=== PATIENT | male | born 1990 | race Caucasian/White ===

== ENCOUNTER 2024-02-23 14:52 | Emergency (ER) | payer MEDICAID, SELFPAY ==
[2024-02-23 14:53] VITALS: BMI 17.1
[2024-02-23 15:16] VITALS: BP 129/79; PULSE 77; RESP 16; TEMP 37.2; O2SAT 98
--- NOTE | 2024-02-23 15:19 | XR_ITS ---
Examination: Hand, left 3 views Technique: Hand AP, oblique, lateral 3 views Date and time of exam: February 23, 2024 1523 hrs. Indications: Injury to the hand today, hand pain Findings: Acute fracture mid to distal fourth metacarpal, 3 mm offset at the fracture site with mild angulation Digits carpal bones appear intact Impression: Acute displaced fourth metacarpal fracture
--- NOTE | 2024-02-23 15:33 | EDNOTE_ITS ---
<Statement entered by Merly Cotrez MD - 02/23/24 17:52> As co-signing physician, I was present and available for consult prn. I concur with the plan and care as documented by the midlevel provider. Upper Extremity Injury RME/HPI General Chief Complaint: Hand/Wrist Problems Stated Complaint: INJURY TO LEFT HAND LAST NIGHT Time Seen by Provider: 02/23/24 15:13 Arrival date/time: 02/23/24 14:52 33-year-old male presents the emergency department complaints of left hand injury last night patient reports no other injuries Limitations: no limitations Related Data Home Medications ?Medication ?Instructions ?Recorded ?Confirmed gabapentin 300 mg capsule 300 mg PO HS 08/27/23 10/05/23 Previous Rx's ?Medication ?Instructions ?Recorded acetaminophen 500 mg tablet 1,000 mg (2 x 500 mg) PO Q6H PRN 08/30/23 (Acetaminophen Extra Strength) pain #90 tabs aspirin 81 mg tablet,delayed 81 mg PO BID #60 tabs 08/30/23 release doxycycline hyclate 100 mg tablet 100 mg PO BID #14 tabs 08/30/23 gabapentin 300 mg capsule 300 mg PO .qhs #30 caps 08/30/23 oxycodone 5 mg tablet 5 mg PO Q6H PRN pain #28 tabs 08/30/23 sennosides 8.6 mg-docusate sodium 1 tab-cap PO QDAY #30 tabs 08/30/23 50 mg tablet (Senna-S) tramadol 50 mg tablet 50 mg PO Q6H PRN pain #28 tabs 09/14/23 tramadol 50 mg tablet 50 mg PO Q8H PRN pain #28 tabs 09/14/23 acetaminophen 500 mg tablet 1,000 mg (2 x 500 mg) PO Q6H PRN 09/27/23 (Acetaminophen Extra Strength) pain #90 tabs acetaminophen 500 mg tablet 1,000 mg (2 x 500 mg) PO Q6H PRN 10/22/23 (Acetaminophen Extra Strength) pain #90 tabs tramadol 50 mg tablet 50 mg PO Q6H PRN pain #28 tabs 10/22/23 hydrocodone 5 mg-acetaminophen 325 1 tab PO BID PRN pain #10 tabs 02/23/24 mg tablet ibuprofen 600 mg tablet 600 mg PO Q6H #30 tabs 02/23/24 Allergies Allergy/AdvReac Type Severity Reaction Status Date / Time No Known Allergies Allergy Verified 02/23/24 14:54 Review of Systems Review of Systems Systems Reviewed: All systems reviewed, normal except as documented Constitutional Constitutional: Reports system reviewed and no additional complaints, except as documented, Denies fever(s) and Denies headache(s) Eyes Eyes: Reports system reviewed and no additional complaints, except as documented and Denies blurry vision ENT Ears, Nose, Mouth, and Throat: Reports system reviewed and no additional complaints, except as documented, Denies headache(s), Denies nasal congestion and Denies nasal discharge Cardiovascular Cardiovascular: Reports system reviewed and no additional complaints, except as documented, Denies chest pain and Denies dyspnea Respiratory Respiratory: Reports system reviewed and no additional complaints, except as documented, Denies chest congestion, Denies cough and Denies dyspnea Gastrointestinal Gastrointestinal: Reports system reviewed and no additional complaints, except as documented and Denies abdominal pain Musculoskeletal Musculoskeletal: Reports system reviewed and no additional complaints, except as documented, Reports arthralgias, Denies numbness, Reports stiffness and Denies tingling Integumentary/Breasts Skin/Breast: Reports system reviewed and no additional complaints, except as documented and Denies rash Neurologic Neurologic: Reports system reviewed and no additional complaints, except as documented, Reports as per HPI, Denies headache(s), Denies numbness and Denies tingling Past Medical History Past Medical History NEUROLOGIC: Negative Neurological Disorders CARDIAC: Negative Cardiac Disorders ED Exam General Limitations: Present no limitations General appearance: Present alert and in no apparent distress Head Head exam: Present atraumatic Eye Eye exam: Present normal appearance, PERRL and EOMI ENT ENT exam: Present normal exam, normal oropharynx and mucous membranes moist Neck Neck exam: Present normal inspection, full ROM and trachea midline Chest Chest inspection: Present normal inspection and symmetric chest wall rise Respiratory Respiratory exam: Present normal lung sounds bilaterally Cardiovascular Cardiovascular exam: Present regular rate, normal rhythm and normal heart sounds Abdominal Exam Abdominal exam: Present soft and normal bowel sounds Extremities Exam Extremities exam: Present full ROM and normal capillary refill; Absent joint swelling Back Exam Back exam: Present normal inspection and full ROM Neurological Exam Neurological exam: Present alert, oriented X3 and CN II-XII intact Psychiatric Psychiatric exam: Present normal affect and normal mood Skin Skin exam: Present warm, dry, intact and normal color Course Quality Measures none Orders Category Date Time Status Splint / Immobilizer STAT Care 02/23/24 15:48 Active XR hand comp LT min 3V Stat Exams 02/23/24 15:19 Completed HYDROcodone*/APAP 5/325 [[place] 5/325] Med 02/23/24 15:48 Discontinued 1 tab PO X1 ONE Vital Signs Vital signs: Vital Signs Temperature 99 F 02/23/24 15:16 Pulse Rate 77 02/23/24 15:16 Respiratory Rate 16 02/23/24 15:16 Blood Pressure 129/79 02/23/24 15:16 Pulse Oximetry (%) 98 02/23/24 15:16 Oxygen Delivery Method Room Air 02/23/24 15:16 O2 saturation 98% on room air within normal limits Procedures -ED Splint Fabrication: Clinician Made Type: Volar Reason for Splint: Optimal Positioning and Pain Management Site condition: Pain Circulation Distal to Splint: Yes Movement Distal to Splint: Yes Senation Distal to Splint: Yes Tolerance: Tolerates Well Extremity Injury MDM Narrative MDM Narrative:: 33-year-old male presents the emergency department complaints of left hand injury last night patient reports no other injuries On exam patient has tenderness of left hand mild swelling dorsal aspect of the left hand X-ray of the left hand obtained patient has fracture left hand fourth metacarpal Patient placed in a volar splint patient given [place] for pain Patient instructed to follow-up with primary care doctor and or get a referral to patient access specialist patient states understanding Patient data External records reviewed:: [facility] previous records Clinical information provided by:: patient Social determinants that could affect healthcare access:: none Patient has the following chronic illnesses:: See history How is presenting disease/condition affected by chronic disease/condition?: uneffected by Evaluation data The following diagnostics were reviewed and interpreted by me:: radiology exam(s) Lab and/or radiology exams considered but not ordered:: Radiology obtain Interpretation Summary: Reviewed by me Medications / Prescriptions Medications or Prescriptions considered but not ordered:: Given Medication administrations:: Medication Administration History Discontinued Medications Hydrocodone Bitart/Acetaminophen (Hydrocodone/Apap 5/325 Tablet) 1 tab PO X1 ONE Stop: 02/23/24 15:49 Last Admin: 02/23/24 16:00 Dose: 1 tab Documented By: Given Consultations Consultation(s) initiated? (list below): No Diagnosis Upper Extremity Injury Differential Diagnosis: finger sprain, dislocation of finger, fracture of hand and other Most likely diagnosis given after review of the tests above:: Fracture of hand Admission Indicated Admission indicated?: not indicated Admission Request Was there a request for admission?: No Disposition Plan Disposition Plan: Discharge Discharge Attestation Discharge Attestation: The patient and all family members were given an opportunity to ask questions and understood the discharge instructions. Discharge instructions specifically effects, indications for sooner follow up or return to the emergency department, and the expected course of current diagnosis. Patient condition: Stable Discharge Plan Plan Patient Disposition: HOME (Self Care) Disposition Comment: Stable Prescriptions/Referrals Prescriptions/Med Rec: New hydrocodone-acetaminophen 5-325 mg tablet 1 tab PO BID MDD 10 PRN (Reason: pain) Qty: 10 0RF ibuprofen 600 mg tablet 600 mg PO Q6H Qty: 30 0RF No Action tramadol 50 mg tablet 50 mg PO Q6H PRN (Reason: pain) Qty: 28 0RF acetaminophen [Acetaminophen Extra Strength] 500 mg tablet 1,000 mg PO Q6H MDD 1000mg PRN (Reason: pain) Qty: 90 0RF tramadol 50 mg tablet 50 mg PO Q6H PRN (Reason: pain) Qty: 28 0RF gabapentin 300 mg capsule 300 mg PO HS Patient Comments: TAKE 1 CAPSULE BY MOUTH EVERY DAY AT BEDTIME sennosides-docusate sodium [Senna-S] 8.6-50 mg tablet 1 tab-cap PO QDAY Qty: 30 0RF aspirin 81 mg tablet,delayed release (DR/EC) 81 mg PO BID Qty: 60 0RF acetaminophen [Acetaminophen Extra Strength] 500 mg tablet 1,000 mg PO Q6H MDD 1000mg PRN (Reason: pain) Qty: 90 0RF gabapentin 300 mg capsule 300 mg PO .qhs Qty: 30 0RF doxycycline hyclate 100 mg tablet 100 mg PO BID Qty: 14 0RF oxycodone 5 mg tablet 5 mg PO Q6H MDD 40 PRN (Reason: pain) Qty: 28 0RF tramadol 50 mg tablet 50 mg PO Q8H PRN (Reason: pain) Qty: 28 0RF acetaminophen [Acetaminophen Extra Strength] 500 mg tablet 1,000 mg PO Q6H MDD 1000mg PRN (Reason: pain) Qty: 90 0RF Referrals: No Primary/Family,Physician [Primary Care Provider] - In 1 week Problem List Clinical Impression: Fracture of left hand Patient/Caregiver Discharge Instructions Education Materials: ED Fracture, Upper Extremity Additional Instructions: Please see your primary care doctor and or get a referral to orthopedics for worsening symptoms or concerns return to the ER immediately Print Language: Maori Stand Alone Forms: Linda Award Info., Work/School Release, Patient Portal Info Letter PA/ADOBE BLOCK MAKER Supervising Physician PA/ADOBE BLOCK MAKER Supervising Physician: Dr. CORTEZ
[2024-02-23] MEDS: HYDROcodone/APAP 5/325 TABLET 1 TAB PO (16:00)
== END 2024-02-23 16:05 | disposition home or self-care (01) ==
PROVIDERS: Emergency Provider Emergency Medicine
DX: S62.305A Unspecified fracture of fourth metacarpal bone, left hand, initial encounter for closed fracture (principal); X58.XXXA Exposure to other specified factors, initial encounter
CPT/HCPCS: 29125; 73130; 99283; A9270

== ENCOUNTER → 2024-03-07 | Outpatient (CLI) | payer MEDICAID, SELFPAY ==
--- NOTE | 2024-03-07 16:21 | XR_ITS ---
Examination: Wrist, left 3 views Technique: Wrist AP, oblique, lateral 3 views Date and time of exam: March 07, 2024 1633 hours INDICATIONS: Acute fracture fourth metacarpal, comminuted February 23, 2024 FINDINGS: Stable comminuted fracture fourth metacarpal No significant bony callus IMPRESSION: Stable alignment comminuted fracture fourth metacarpal
--- NOTE | 2024-03-07 16:21 | XR_ITS ---
Examination: Hand, left 3 views Technique: Hand AP, oblique, lateral 3 views Date and time of exam: March 07, 2024 1633 hours INDICATIONS: Acute fracture fourth metacarpal February 23, 2024 FINDINGS: Subacute fracture fourth metacarpal shaft again noted 3 mm offset at the fracture site No significant bony callus IMPRESSION: Stable alignment fracture fourth metacarpal with no significant bony callus at this time
== END | disposition home or self-care (01) ==
DX: S62.305A Unspecified fracture of fourth metacarpal bone, left hand, initial encounter for closed fracture (principal); X58.XXXA Exposure to other specified factors, initial encounter
CPT/HCPCS: 73110; 73130

== ENCOUNTER 2024-12-20 04:07 | Emergency (ER) | payer MEDICAID, SELFPAY ==
[2024-12-20 04:20] VITALS: BP 115/75; PULSE 80; RESP 17; TEMP 36.7; O2SAT 96
--- NOTE | 2024-12-20 04:34 | EDRME_ITS ---
Rapid Medical Screening Exam E Arrival date/time: 12/20/24 04:07 34M with history of DM presents to ED with 5 days of worsening N/V, some non- bloody diarrhea, generalized fatigue/weakness, and brain fog. Patient denies alcohol/drug use and known psych disorders. Chief Complaint: General Adult/Misc Complain Vital signs: Vital Signs Temperature 98.0 F 12/20/24 04:20 Pulse Rate 80 12/20/24 04:20 Respiratory Rate 17 12/20/24 04:20 Blood Pressure 115/75 12/20/24 04:20 Pulse Oximetry (%) 96 12/20/24 04:20 Oxygen Delivery Method Room Air 12/20/24 04:20 Exam: Tired-appearing. Speech normal. Clinical Impression: DKA vs psych vs gastroenteritis vs intoxication vs AMS vs electrolyte abnormality vs rhabdo vs PRISCILLA
[2024-12-20] MEDS: ONDANSETRON ODT 4 MG TABRAP PO (04:40)
[2024-12-20 05:26] LABS: Base Excess, Venous 3 (-3-3); O2 Saturation, Venous 83 % (96-97); PCO2, Venous 41 mmHg (36-56); PO2, Venous 45 mmHg (15-58); pH, Venous 7.44 (7.33-7.66)
[2024-12-20 05:44] LABS: Beta Hydroxybutyrate 0.3 mmol/L (<0.6)
[2024-12-20 05:49] LABS: Basophils # (Auto) 0.0 Thou/mm3 (0.0-0.2); Basophils % (Auto) 0 % (0-2.5); Eosinophils # (Auto) 0.1 Thou/mm3 (0.0-0.5); Eosinophils % (Auto) 1 % (0-10); Hematocrit 45.0 % (41.0-53.0); Hemoglobin 15.6 g/dL (13.5-16.0); Immature Granulocytes Auto 0.05 Thou/mm3 (0.00-0.00); Lymphocytes # (Auto) 3.3 Thou/mm3 (1.0-4.8); Lymphocytes % (Auto) 40 % (10-50); Mean Corpuscular HGB Conc 34.7 g/dl (31.0-37.0); Mean Corpuscular Hemoglobin 30.2 pg (25.0-35.0); Mean Corpuscular Volume 87 fL (80-100); Monocytes # (Auto) 0.5 Thou/mm3 (0.0-0.8); Monocytes % (Auto) 6 % (0-12); Neutrophils # (Auto) 4.3 Thou/mm3 (1.8-7.7); Neutrophils % (Auto) 52 % (37-80); Nucleated Red Blood Cell # 0.00 Thou/mm3 (0.00-0.00); Nucleated Red Blood Cell % 0 /100 WBC (0); Platelet Count 182 Thou/mm3 (140-440); RDW Standard Deviation 39.7 fL (35.1-43.9); Red Blood Count 5.16 Miln/mm3 (4.50-5.90); White Blood Count 8.3 Thou/mm3 (3.8-10.6)
[2024-12-20 05:52] LABS: Collection Type, Urine Clean Catch
[2024-12-20 06:00] LABS: Ammonia < 10 uMol/L (11-32)
--- NOTE | 2024-12-20 06:01 | PC.NURSE ---
SEEN LEAVING ER GOT IN TO A CAR.
[2024-12-20 06:02] LABS: Bilirubin,Urine Negative (Negative); Blood,Urine Trace (Negative); Clarity,Urine Clear (Clear/Hazy); Color,Urine Lt-Yellow (Lt Yel-Yel); Culture Indicated,Urine Not Indicated; Glucose, Urine 4+ (Negative); Hyaline Casts,Urine < 1 /hpf (0-1); Ketones,Urine 1+ (Negative); Leukocyte Esterase,Urine Negative (Negative); Nitrite,Urine Negative (Negative); PH,Urine 6.0 (5.0-7.0); Protein,Urine 1+ (Neg - Trace); RBC,Urine 2 /hpf (0-3); Specific Gravity,Urine 1.028 (1.001-1.035); Squamous Epithelial Cell,Urine 1 /hpf (0-5); Urobilinogen,Urine Negative mg/dL (0.0-1.0); WBC,Urine 8 /hpf (0-5)
[2024-12-20 06:12] LABS: Amphetamine/Methamp Scrn,U Negative (Negative); Barbiturate Screen,Urine Negative (Negative); Benzodiazepines Screen,Urine Negative (Negative); Benzoylecgonine Screen, Ur Negative (Negative); Fentanyl Screen,Urine Negative (Negative); Opiate Screen,Urine Negative (Negative); THC Screen,Urine Negative (Negative)
[2024-12-20 06:33] LABS: Alanine Aminotransferase 61 U/L (10-49); Albumin, Serum 4.8 gm/dL (3.5-5.0); Albumin/Globulin Ratio 4.0 (1.2-2.2); Alcohol, Blood Medical 272.4 mg/dL (0-10.0); Alkaline Phosphatase 81 U/L (46-116); Anion Gap 18 (7-16); Aspartate Amino Transferase 92 U/L (0-34); BUN/Creatinine Ratio 27 Ratio (12-20); Bilirubin,Total 0.6 mg/dL (0.3-1.2); Blood Urea Nitrogen 16 mg/dL (9-23); Calcium 8.8 mg/dL (8.3-10.6); Calcium (Corrected) 8.8 mg/dL (8.5-10.1); Carbon Dioxide 21.4 mMol/L (20.0-31.0); Chloride 103 mMol/L (98-107); Creatine Kinase 171 U/L (34-171); Creatinine (Component) 0.6 mg/dL (0.6-1.3); Globulin 1.2 gm/dL (2.3-3.5); Glucose 211 mg/dL (74-106); Osmolality,Calculated 290 (275-295); Potassium 4.6 mMol/L (3.4-5.1); Sodium 142 mMol/L (136-145); Total Protein 6.0 gm/dL (5.7-8.2); eGFR > 60 See Note
== END 2024-12-20 06:20 | disposition left against medical advice (07) ==
LOC: SERX 06:11
PROVIDERS: Physician Assistant; Emergency Provider Emergency Medicine
DX: Z53.21 Procedure and treatment not carried out due to patient leaving prior to being seen by health care provider (principal)
CPT/HCPCS: 36415; 80053; 80307; 80320; 81001; 82010; 82140; 82550; 82803; 85025; 99282; Q0162; G0480

== ENCOUNTER 2024-12-26 03:55 | Inpatient (IN) | payer MEDICAID, SELFPAY ==
[2024-12-26] VITALS (56 sets, daily range): BP systolic 99–120; BP diastolic 56–83; PULSE 68–93; RESP 15–34; TEMP 36.8–37.1; O2SAT 95–100; BMI 15.4
--- NOTE | 2024-12-26 03:57 | PD.EDALCOH ---
ED Alcohol RME/HPI General Chief Complaint: Weakness Stated Complaint: WEAKNESS Time Seen by Provider: 12/26/24 04:16 Arrival date/time: 12/26/24 03:55 RME / HPI Amount of alcohol consumed: See [facility] for Dr. Martinez's HPI Documentation. Related Data Home Medications ?Medication ?Instructions ?Recorded ?Confirmed gabapentin 300 mg capsule 300 mg PO HS 08/27/23 10/05/23 Previous Rx's ?Medication ?Instructions ?Recorded acetaminophen 500 mg tablet 1,000 mg (2 x 500 mg) PO Q6H PRN 08/30/23 (Acetaminophen Extra Strength) pain #90 tabs aspirin 81 mg tablet,delayed 81 mg PO BID #60 tabs 08/30/23 release doxycycline hyclate 100 mg tablet 100 mg PO BID #14 tabs 08/30/23 gabapentin 300 mg capsule 300 mg PO .qhs #30 caps 08/30/23 oxycodone 5 mg tablet 5 mg PO Q6H PRN pain #28 tabs 08/30/23 sennosides 8.6 mg-docusate sodium 1 tab-cap PO QDAY #30 tabs 08/30/23 50 mg tablet (Senna-S) tramadol 50 mg tablet 50 mg PO Q6H PRN pain #28 tabs 09/14/23 tramadol 50 mg tablet 50 mg PO Q8H PRN pain #28 tabs 09/14/23 acetaminophen 500 mg tablet 1,000 mg (2 x 500 mg) PO Q6H PRN 09/27/23 (Acetaminophen Extra Strength) pain #90 tabs acetaminophen 500 mg tablet 1,000 mg (2 x 500 mg) PO Q6H PRN 10/22/23 (Acetaminophen Extra Strength) pain #90 tabs tramadol 50 mg tablet 50 mg PO Q6H PRN pain #28 tabs 10/22/23 hydrocodone 5 mg-acetaminophen 325 1 tab PO BID PRN pain #10 tabs 02/23/24 mg tablet ibuprofen 600 mg tablet 600 mg PO Q6H #30 tabs 02/23/24 Allergies Allergy/AdvReac Type Severity Reaction Status Date / Time No Known Allergies Allergy Verified 02/23/24 14:54 Review of Systems Review of Systems Systems Reviewed: All systems reviewed, normal except as documented Past Medical History Past Medical History MUSCULOSKELETAL: Positive Musculoskeletal Disorders (necrosis hips) ENDOCRINE: Positive Endocrine Disorders and Diabetes Mellitus Type 2 (diet control) OTHER HISTORY: Positive Hospitalization (DM) Social History SMOKING STATUS: Current every day smoker ED Exam Narrative Physical exam: See MDM for Dr. Martinez's Physical Exam Documentation. Course Quality Measures none Orders Category Date Time Status EKG (ED ONLY) *Do not use* NOW Care 12/26/24 04:33 Active Glucose [Bedside Blood Glucose] NOW Care 12/26/24 04:22 Active Saline [Insert IV] NOW Care 12/26/24 04:20 Active Straight [In and Out Catheter] X1 Care 12/26/24 04:[address] abdomen pelvis wo con Stat Exams 12/26/24 04:[address] head/brain wo con Stat Exams 12/26/24 04:38 Ordered EKG (ED Only) Stat Exams 12/26/24 04:33 Ordered US gall bladder Stat Exams 12/26/24 04:34 Ordered XR chest 1V portable Stat Exams 12/26/24 04:33 Ordered Acetaminophen Stat Lab 12/26/24 04:34 Ordered Alcohol, Blood Medical Stat Lab 12/26/24 04:34 Ordered Ammonia Stat Lab 12/26/24 04:34 Ordered Amylase Stat Lab 12/26/24 04:34 Ordered BNP [B-Type Natriuretic Peptide] Stat Lab 12/26/24 04:34 Ordered Beta Hydroxybutyrate Stat Lab 12/26/24 04:34 Ordered Bilirubin,Direct Stat Lab 12/26/24 04:34 Ordered CBC Stat Lab 12/26/24 04:34 Ordered CK [Creatine Kinase] Stat Lab 12/26/24 04:34 Ordered CMP [Comprehensive Metabolic Panel] Stat Lab 12/26/24 04:34 Ordered Drug Screen,Urine Stat Lab 12/26/24 04:34 Ordered Hemoglobin A1C [Glycohemoglobin w (eAG)] Stat Lab 12/26/24 04:34 Ordered Lactate (Lactic Acid) Stat Lab 12/26/24 04:35 Ordered Lipase Stat Lab 12/26/24 04:34 Ordered Magnesium Stat Lab 12/26/24 04:34 Ordered PT [Prothrombin Time with INR] Stat Lab 12/26/24 04:35 Ordered PTT [Partial Thromboplastin Time] Stat Lab 12/26/24 04:35 Ordered TSH [Thyroid Stimulating Hormone] Stat Lab 12/26/24 04:34 Ordered Troponin I Stat Lab 12/26/24 04:34 Ordered UA, C/S IF [Urinalysis, C/S if Indicated] Stat Lab 12/26/24 04:35 Ordered VBG [Venous Blood Gas] Stat Lab 12/26/24 04:35 Ordered Famotidine Inj [Pepcid Inj] Med 12/26/24 04:21 Discontinued 20 mg IVP X1 ONE LORazepam [Ativan Inj] Med 12/26/24 04:21 Discontinued 2 mg IVP X1 ONE Ondansetron Inj [Zofran Inj] Med 12/26/24 04:21 Discontinued 4 mg IVP X1 ONE Pantoprazole Inj [Protonix Inj] Med 12/26/24 04:21 Discontinued 40 mg IVP X1 ONE Ringers Lactated 1000 ml [Lactated Ringers] 1,000 ml Med 12/26/24 04:21 Active IV 1,000 mls/hr Thiamine Inj [Vitamin B-1 Inj] Med 12/26/24 04:21 Discontinued 100 mg IVP X1 ONE Vital Signs Vital signs: Vital Signs Temperature 98.5 F 12/26/24 04:05 Pulse Rate 86 12/26/24 04:05 Respiratory Rate 18 12/26/24 04:05 Blood Pressure 108/74 12/26/24 04:05 Pulse Oximetry (%) 98 12/26/24 04:05 Oxygen Delivery Method Room Air 12/26/24 04:05 Discharge Plan Prescriptions/Referrals Prescriptions/Med Rec: No Action tramadol 50 mg tablet 50 mg PO Q6H PRN (Reason: pain) Qty: 28 0RF acetaminophen [Acetaminophen Extra Strength] 500 mg tablet 1,000 mg PO Q6H MDD 1000mg PRN (Reason: pain) Qty: 90 0RF tramadol 50 mg tablet 50 mg PO Q6H PRN (Reason: pain) Qty: 28 0RF hydrocodone-acetaminophen 5-325 mg tablet 1 tab PO BID MDD 10 PRN (Reason: pain) Qty: 10 0RF ibuprofen 600 mg tablet 600 mg PO Q6H Qty: 30 0RF gabapentin 300 mg capsule 300 mg PO HS Patient Comments: TAKE 1 CAPSULE BY MOUTH EVERY DAY AT BEDTIME sennosides-docusate sodium [Senna-S] 8.6-50 mg tablet 1 tab-cap PO QDAY Qty: 30 0RF aspirin 81 mg tablet,delayed release (DR/EC) 81 mg PO BID Qty: 60 0RF acetaminophen [Acetaminophen Extra Strength] 500 mg tablet 1,000 mg PO Q6H MDD 1000mg PRN (Reason: pain) Qty: 90 0RF gabapentin 300 mg capsule 300 mg PO .qhs Qty: 30 0RF doxycycline hyclate 100 mg tablet 100 mg PO BID Qty: 14 0RF oxycodone 5 mg tablet 5 mg PO Q6H MDD 40 PRN (Reason: pain) Qty: 28 0RF tramadol 50 mg tablet 50 mg PO Q8H PRN (Reason: pain) Qty: 28 0RF acetaminophen [Acetaminophen Extra Strength] 500 mg tablet 1,000 mg PO Q6H MDD 1000mg PRN (Reason: pain) Qty: 90 0RF Problem List Clinical Impression: Alcohol abuse, Diabetes Patient/Caregiver Discharge Instructions Print Language: Greenlandic Alcohol MDM Narrative MDM Narrative: This section includes all my notes and documentations, including HPI, PE, and ED course. Sandro Martinez MD HPI: 34 y/o male here by EMS with multiple concerns. Has type II DM. Has history of severe alcohol abuse. He reports quitting for about 3 years. Until a couple weeks ago when he started drinking heavily daily. Concerned about severe alcohol withdrawal symptoms, including seizures, based on past history. Reports severe shaking. No hallucinations. He reports severe weakness, not even being able to walk to the bathroom on his own. Reports severe nausea and upper abdominal pain. No other complaints. ROS: All negative except as documented in HPI. Physical Exam: General: Alert and oriented. Appears intoxicated. Eyes: Conjunctivae and lids clear. EOMI. PERRL. ENT: No nasal congestion. Neck: Supple. No carotid bruit. No JVD. Heart: RRR. Lungs: No respiratory distress. Good air movement. No rhonchi, wheezing, rales. Chest: No tenderness. Abdomen: Soft with epigastric tenderness. Normal bowel sounds. No distension. No rebound or guarding. Back: No CVA tenderness. Legs: No clubbing, cyanosis, edema. Skin: Warm and dry. Neuro: Alert and oriented X 3. Cranial Nerves II-XII grossly intact. No peripheral motor deficits. Musculoskeletal: All major joints and bones are not tender with no limited ROM. I reviewed EMS notes. I ordered IVF, Zofran 4 mg IV, Ativan 2 mg IV, Famotidine 20 mg IV, Protonix 40 mg IV, and diagnostic tests. At 6 AM on 01/16, the care of the patient which as per Dr. GEORGES. Sandro Martinez MD Patient data External records reviewed:: [facility] previous records and EMS form Clinical information provided by:: patient and EMS Social determinants that could affect healthcare access:: alcohol use Patient has the following chronic illnesses:: Alcohol abuse How is presenting disease/condition affected by chronic disease/condition?: exacerbated by Evaluation data The following diagnostics were reviewed and interpreted by me:: lab results and radiology exam(s) Lab and/or radiology exams considered but not ordered:: None Interpretation Summary: Complete diagnostic tests are pending. Medications / Prescriptions Medications or Prescriptions considered but not ordered:: None Medication administrations:: Medication Administration History Lactated Ringer's (Lactated Ringers) 1,000 mls @ 1,000 mls/hr IV .Q1H ONE Stop: 12/26/24 05:20 Discontinued Medications Famotidine (Famotidine Inj 10 Mg/Ml Vial 2 Ml) 20 mg IVP X1 ONE Stop: 12/26/24 04:22 Lorazepam (Lorazepam 2 Mg/Ml Vial) 2 mg IVP X1 ONE Stop: 12/26/24 04:22 Ondansetron HCl (Ondansetron Inj 2 Mg/Ml Inj 2 Ml) 4 mg IVP X1 ONE; Protocol Stop: 12/26/24 04:22 Pantoprazole Sodium (Pantoprazole Inj 40 Mg Vial) 40 mg IVP X1 ONE Stop: 12/26/24 04:22 Thiamine HCl (Thiamine Inj 100 Mg/Ml Vial 2 Ml) 100 mg IVP X1 ONE Stop: 12/26/24 04:22 I ordered IVF, Zofran 4 mg IV, Ativan 2 mg IV, Famotidine 20 mg IV, Protonix 40 mg IV, and diagnostic tests. Consultations Consultation(s) initiated? (list below): No Diagnosis Differential diagnosis alcohol: alcohol withdrawal delirium, hypomagnesemia, alcohol intoxication, alcohol ketoacidosis, alcohol withdrawal syndrome and alcohol withdrawal seizure Most likely diagnosis given after review of the tests above:: Complete diagnostic tests are pending. Admission Indicated Admission indicated?: not indicated Explain why admission is indicated or not indicated:: Complete diagnostic tests are pending. Admission Request Was there a request for admission?: No Disposition Plan Disposition Plan: other (specify) ( At 6 AM on 01/16, the care of the patient which as per Dr. GEORGES.)
--- NOTE | 2024-12-26 04:33 | XR_ITS ---
CLINICAL INDICATION: SOB TECHNIQUE: XR chest 1V portable Exam date and time: 12/26/2024, 4:43 a.m. COMPARISON: None. FINDINGS: The cardiomediastinal silhouette is within normal limits. No airspace opacities suggestive of pneumonia. No mass detected. No pleural effusion or pneumothorax. Convex right spinal curvature may be positional in etiology or due to scoliosis. Otherwise, no acute osseous abnormalities detected. IMPRESSION: No radiographic evidence for acute cardiopulmonary abnormality. - This report was generated utilizing speech recognition software. -
--- NOTE | 2024-12-26 04:33 | EKG_ITS ---
[facility] Test Date: 2024-12-26 Pat Name: SKYLER KYLE Department: Room: - Gender: Male Psychological Anthropologist: : 1990 Requested By: Sandro Tavarez Order Number: [id number] Reading MD: Sandro Tavarez Measurements Intervals Apex Rate: 84 P: 76 TX: 146 QRS: 72 QRSD: 86 T: 54 QT: 384 QTc: 454 Interpretive Statements SINUS RHYTHM Compared to ECG 06/29/2023 09:43:05 Sinus bradycardia no longer present Atrial abnormality no longer present /store/S0/[id number]
--- NOTE | 2024-12-26 04:34 | XR_ITS ---
Examination: Abdomen sonogram, Limited Date and time of exam: December 26, 2024, 0739 hours INDICATIONS: Right upper abdominal pain and weakness this week Technique: Real-time juan scale transabdominal sonographic images of the upper abdomen obtained. Findings: Normal gallbladder Normal common bile duct 0.3 cm Pancreatic head 1.8 cm Liver 13.9 cm fatty infiltration smooth contour no focal liver lesions Normal hepatopetal portal venous flow Patent IVC IMPRESSION: Negative study
--- NOTE | 2024-12-26 04:34 | XR_ITS ---
Examination: CT abdomen and pelvis without contrast. Coronal 3-D reconstructions. Sagittal 2-D reconstructions. Date and time of exam: December 26, 2024, 0508 hours INDICATIONS: Abdominal pain and weakness beginning 9 days ago CTDI: vol (mGy): 4.33 DLP: (mGycm): 238 Technique: Axial images of the abdomen have been obtained, 3 mm slice thickness Intravenous contrast material has not been administered. Low dose protocols were performed. One or more of the following dose reduction techniques were used; automated exposure control, adjustment of the mA and/or KV according to patient size, use of iterative reconstruction technique. Findings: Diffuse fatty infiltration throughout the liver with hepatomegaly 17 cm No liver or splenic lesion No definite gallstones No pancreatic mass or adrenal mass 2 mm left renal calculus 4 mm soft calcification anterior right kidney image 100 No hydronephrosis or ureteral calculi No bowel obstruction Detail in the pelvis is reduced secondary to the hip arthroplasties No bladder mass or bladder calculi No pericecal inflammatory change IMPRESSION: Hepatomegaly with diffuse fatty infiltration throughout the liver 2 mm nonobstructing left renal calculus 4 mm soft calcification anterior right kidney No hydronephrosis or ureteral calculi No CT findings of appendicitis or bowel obstruction
[2024-12-26] MEDS: ONDANSETRON INJ 2 MG/ML INJ 2 ML 4 MG IVP (04:37)
--- NOTE | 2024-12-26 04:38 | XR_ITS ---
Examination: CT brain head without contrast. 2-D sagittal coronal reconstructions Date and time of exam: December 26, 2024, 0508 hours INDICATIONS: Onset altered mental status beginning 3 days ago CTDI: vol (mGy): 46.2 DLP: (mGycm): 805 Technique: Multiple CT axial sections of the brain have been obtained, 5 mm slice thickness. Contrast has not been administered. 2-D sagittal, coronal reconstructions have been obtained Low dose protocols were performed. One or more of the following dose reduction techniques were used; automated exposure control, adjustment of the mA and/or KV according to patient size, use of iterative reconstruction technique. Findings: No significant ventricular enlargement. Intra-axial or extra-axial hemorrhage density is not seen. No mass effect or midline shift Basal cisterns are not remarkable. Fourth ventricle is midline. Cranial vault intact. Impression: Negative for acute hemorrhage, mass effect or midline shift Advise clinical correlation and follow-up accordingly
[2024-12-26] MEDS: FAMOTIDINE INJ 10 MG/ML VIAL 2 ML 20 MG IVP (04:39)
[2024-12-26] MEDS: THIAMINE INJ 100 MG/ML VIAL 2 ML IVP (04:42)
[2024-12-26] MEDS: LORazepam 2 MG/ML VIAL IVP ×2 (04:43→12:33)
[2024-12-26] MEDS: RINGERS LACTATED 1000 ML 1,000 ML IV (04:54)
[2024-12-26 05:15] LABS: Basophils # (Auto) 0.0 Thou/mm3 (0.0-0.2); Basophils % (Auto) 0 % (0-2.5); Eosinophils # (Auto) 0.1 Thou/mm3 (0.0-0.5); Eosinophils % (Auto) 1 % (0-10); Hematocrit 48.9 % (41.0-53.0); Hemoglobin 17.1 g/dL (13.5-16.0); Immature Granulocytes Auto 0.03 Thou/mm3 (0.00-0.00); Lymphocytes # (Auto) 2.2 Thou/mm3 (1.0-4.8); Lymphocytes % (Auto) 33 % (10-50); Mean Corpuscular HGB Conc 35.0 g/dl (31.0-37.0); Mean Corpuscular Hemoglobin 30.5 pg (25.0-35.0); Mean Corpuscular Volume 87 fL (80-100); Monocytes # (Auto) 0.3 Thou/mm3 (0.0-0.8); Monocytes % (Auto) 5 % (0-12); Neutrophils # (Auto) 4.1 Thou/mm3 (1.8-7.7); Neutrophils % (Auto) 61 % (37-80); Nucleated Red Blood Cell # 0.00 Thou/mm3 (0.00-0.00); Nucleated Red Blood Cell % 0 /100 WBC (0); Platelet Count 170 Thou/mm3 (140-440); RDW Standard Deviation 39.6 fL (35.1-43.9); Red Blood Count 5.60 Miln/mm3 (4.50-5.90); White Blood Count 6.7 Thou/mm3 (3.8-10.6)
[2024-12-26 05:36] LABS: Glucose Estimated Average 186 mg/dL (80-131); Hemoglobin A1C 8.1 % Hgb (4.8-6.0)
[2024-12-26 05:39] LABS: Base Excess, Venous 5 (-3-3); O2 Saturation, Venous 44 % (96-97); PCO2, Venous 41 mmHg (36-56); PO2, Venous 24 mmHg (15-58); pH, Venous 7.46 (7.33-7.66)
[2024-12-26 05:40] LABS: B-Type Natriuretic Peptide < 20 pg/mL (0-100)
[2024-12-26 05:49] LABS: Beta Hydroxybutyrate 0.4 mmol/L (<0.6)
--- NOTE | 2024-12-26 05:59 | PRELIM_ITS ---
CT scan of the head without intravenous contrast (axial sections with sagittal and coronal reformats). December 26, 2024 0507 hours Clinical History: AMS No prior study is available for comparison. Findings: No evidence of intracranial hemorrhage, mass effect or midline shift. The ventricles and CSF spaces are unremarkable. The calvarium is unremarkable. The mastoid air cells and the visualized paranasal sinuses are clear. Impression: No evidence of intracranial hemorrhage, mass effect or midline shift. If there are persistent clinical symptoms or additional clinical concerns, consider MRI. Report Electronically Signed By: Faraz Flores 12/26/2024 5:58:45 AM [EST]
[2024-12-26 06:00] LABS: INR 0.9 (0.9-1.3); Partial Thromboplastin Time 24.1 Seconds (22.0-36.0); Prothrombin Time 9.9 Seconds (9.0-12.2)
[2024-12-26 06:04] LABS: Lactate (Lactic Acid) 4.7 mMol/L (0.4-2.0)
[2024-12-26 06:14] LABS: Ammonia < 10 uMol/L (11-32)
[2024-12-26 06:14] LABS: Acetaminophen < 2.0 mcg/mL (10.0-20.0); Alanine Aminotransferase 354 U/L (10-49); Albumin, Serum 4.9 gm/dL (3.5-5.0); Albumin/Globulin Ratio 3.3 (1.2-2.2); Alcohol, Blood Medical 313.1 mg/dL (0-10.0); Alkaline Phosphatase 83 U/L (46-116); Amylase 37 U/L (30-118); Anion Gap 14 (7-16); Aspartate Amino Transferase 534 U/L (0-34); BUN/Creatinine Ratio 13 Ratio (12-20); Bilirubin,Direct 0.5 mg/dL (0.0-0.3); Bilirubin,Total 1.3 mg/dL (0.3-1.2); Blood Urea Nitrogen 8 mg/dL (9-23); Calcium 9.0 mg/dL (8.3-10.6); Calcium (Corrected) 9.0 mg/dL (8.5-10.1); Carbon Dioxide 28.0 mMol/L (20.0-31.0); Chloride 103 mMol/L (98-107); Creatine Kinase 207 U/L (34-171); Creatinine (Component) 0.6 mg/dL (0.6-1.3); Estimated Creatinine Clearance 133.6 mL/min (>60); Globulin 1.5 gm/dL (2.3-3.5); Glucose 147 mg/dL (74-106); Lipase 26 U/L (12-53); Magnesium 2.1 mg/dL (1.6-2.6); Osmolality,Calculated 290 (275-295); Potassium 3.9 mMol/L (3.4-5.1); Sodium 145 mMol/L (136-145); Thyroid Stimulating Hormone 0.85 uIU/mL (0.55-4.78); Total Protein 6.4 gm/dL (5.7-8.2); Troponin I < 0.020 ng/mL (0.0-0.045); eGFR > 60 See Note
--- NOTE | 2024-12-26 06:18 | PRELIM_ITS ---
CT scan of the abdomen and pelvis without intravenous contrast (axial sections with sagittal and coronal reformats) December 26, 2024 0508 hours Clinical History: Abdominal pain. No prior study is available for comparison. Findings: Right basilar calcified granuloma is seen. Fatty infiltration of the liver is noted. There is a nonobstructing calculus in the left interpolar calyx, measuring 2 mm. The gallbladder, pancreas, spleen, right kidney and adrenals are unremarkable on this noncontrast study. No evidence of bowel obstruction. The appendix is within normal limits (axial image [id number]). There is no mesenteric or retroperitoneal adenopathy. The urinary bladder is unremarkable. There is no free fluid or free air. Calcific densities are seen in the pelvis, likely representing phleboliths. Post bilateral hip replacement. Impression: No evidence of acute intra-abdominal or pelvic pathology. Nonobstructing calculus in the left interpolar calyx, measuring 2 mm. Fatty liver. Other findings as described above. Report Electronically Signed By: Faraz Flores 12/26/2024 6:17:15 AM [EST]
--- NOTE | 2024-12-26 08:20 | PC.NURSE ---
Pt. here from home to room 18, pt. states he's here because of his alcoholism, pt. states he also smokes cigarettes daily. Pt. states he wants to eat and denies any nausea or vomiting. No s/s of distress at this time.
--- NOTE | 2024-12-26 08:21 | PC.NURSE ---
Pt. states he is going to loose his car and his job at [employer] pt. states he is depressed, pt. states he went to rehab for a year and had stopped drinking alcohol for 4 years. Pt. states he lives with his dad who is a Meth head.
--- NOTE | 2024-12-26 08:26 | PC.NURSE ---
Informed Dr. Cortez that pt. would like to eat and needs a nicotine patch, Dr. Cortez states she will put in orders.
[2024-12-26] MEDS: SODIUM CHLORIDE 0.9% 1000 ML 1,000 ML 999 ML IV (08:35)
[2024-12-26 08:37] LABS: Reflex Lactate? Y
[2024-12-26] MEDS: NICOTINE PATCH 21 MG/24 HR PATCH.TD24 TOP (08:42)
--- NOTE | 2024-12-26 08:48 | PC.NURSE ---
Dr. Benavides talking with pt. bedside.
[2024-12-26 08:51] LABS: Collection Type, Urine Clean Catch
[2024-12-26 08:58] LABS: Bilirubin,Urine Negative (Negative); Blood,Urine 1+ (Negative); Clarity,Urine Clear (Clear/Hazy); Color,Urine Yellow (Lt Yel-Yel); Culture Indicated,Urine Not Indicated; Glucose, Urine 3+ (Negative); Ketones,Urine 2+ (Negative); Leukocyte Esterase,Urine Negative (Negative); Nitrite,Urine Negative (Negative); PH,Urine 6.5 (5.0-7.0); Protein,Urine 2+ (Neg - Trace); RBC,Urine 5 /hpf (0-3); Specific Gravity,Urine 1.025 (1.001-1.035); Squamous Epithelial Cell,Urine < 1 /hpf (0-5); Urobilinogen,Urine 3.0 mg/dL (0.0-1.0); WBC,Urine 1 /hpf (0-5)
[2024-12-26 09:04] LABS: Amphetamine/Methamp Scrn,U Negative (Negative); Barbiturate Screen,Urine Negative (Negative); Benzodiazepines Screen,Urine Negative (Negative); Benzoylecgonine Screen, Ur Negative (Negative); Fentanyl Screen,Urine Negative (Negative); Opiate Screen,Urine Negative (Negative); THC Screen,Urine Positive (Negative)
[2024-12-26 09:44] LABS: Lactic Acid, 3 HR 4.1 mMol/L (0.4-2.0)
--- NOTE | 2024-12-26 10:21 | EDNOTE_ITS ---
<Statement entered by Merly Cortez MD - 12/27/24 16:14> I, Merly Cortez MD, have reviewed the history, exam, and assessment of the patient. I have evaluated the patient independently and agree with the plan of care documented by [ ]. All diagnostic studies were reviewed and discussed. I confirm the diagnosis as documented by the Resident. I was present during the Medical Decision Making for this patient. The patient's plan of care was created between myself and the Resident and consistent with our discussion of the patient's case. ED Chest Pain RME/HPI General Chief Complaint: Weakness Stated Complaint: WEAKNESS Time Seen by Provider: 12/26/24 04:16 Arrival date/time: 12/26/24 03:55 RME / HPI RME / HPI narrative: Patient is a 34 year old male with a past medical history of diabetes mellitus type 2 non insulin dependent and alcohol use disorder who has a history of alcoholic seizures. Patient presented to the emergency room with chief complain of chest pain that originates at the sternal region, does not radiate, lasting hours, and has been bed bound for the past 9 days secondary to generalized weakness. Pain stated it is not produceable to palpation or with deep inspiration. Patient stated he drinks a 5th of clarisse every day. Last drink on Wednesday, December 25, 2024. Currently complaining of visual hallucinations. Patient would like to stop drinking. Patient has stopped all diabetic medication. Positive for naseua. Negative for emesis. Denied pyrexia or sick contacts. Denied falls. CIWA 7 CBC CMP troponin EKG Related Data Home Medications ?Medication ?Instructions ?Recorded ?Confirmed gabapentin 300 mg capsule 300 mg PO HS 08/27/23 Previous Rx's ?Medication ?Instructions ?Recorded acetaminophen 500 mg tablet 1,000 mg (2 x 500 mg) PO Q 6H PRN 08/30/23 (Acetaminophen Extra Strength) pain #90 tabs aspirin 81 mg tablet,delayed 81 mg PO BID #60 tabs 10/15 release doxycycline hyclate 100 mg tablet 100 mg PO BID #14 ta bs 08/30/23 gabapentin 300 mg capsule 300 mg PO .qhs #30 caps 10/15 oxycodone 5 mg tablet 5 mg PO Q6H PRN pain #28 tab s 08/30/23 sennosides 8.6 mg-docusate sodium 1 tab-cap PO QDAY #3 0 tabs 08/30/23 50 mg tablet (Senna-S) tramadol 50 mg tablet 50 mg PO Q6H PRN pain #28 ta bs 09/14/23 tramadol 50 mg tablet 50 mg PO Q8H PRN pain #28 ta bs 09/14/23 acetaminophen 500 mg tablet 1,000 mg (2 x 500 mg) PO Q 6H PRN 09/27/23 (Acetaminophen Extra Strength) pain #90 tabs acetaminophen 500 mg tablet 1,000 mg (2 x 500 mg) PO Q 6H PRN 10/22/23 (Acetaminophen Extra Strength) pain #90 tabs tramadol 50 mg tablet 50 mg PO Q6H PRN pain #28 ta bs 10/22/23 hydrocodone 5 mg-acetaminophen 325 1 tab PO BID PRN pa in #10 tabs 02/23/24 mg tablet ibuprofen 600 mg tablet 600 mg PO Q6H #30 tabs 02/22 Allergies Allergy/AdvReac Type Severity Reaction Status Date / Time No Known Allergies Allergy Verified 02/23/24 14:54 Review of Systems Review of Systems Narrative Review of Systems: General appearance: NO weight change, NO fatigue, NO weakness, NO fever, NO chills, NO night sweats, No cough Skin: NO rash, NO itching, NO sores, NO moles HEENT: NO Trauma, NO nausea, NO vomiting, NO visual changes, NO blurry vision, NO double vision, NO tinnitus, NO vertigo, NO ear discharge, NO rhinorrhea, NO stuffiness, NO sneezing, NO allergy, NO epistaxis. NO Hoarseness, NO sore throat, NO swollen neck. Cardiac: YES Palpitations, Yes chest pain, NO dyspnea on exertion, NO orthopnea, NO paroxysmal nocturnal dyspnea, NO edema Respiratory: NO Shortness of Breath, NO Wheezing, NO Cough, NO Sputum, NO hemoptysis GI:NO appetite, NO nausea, NO vomiting, NO dysphagia, NO changes in bowel frequency, NO stool color, NO diarrhea, NO constipation, NO hemetemesis, NO hemorrhoids, NO melena, NO hematechezia, NO abdominal pain, NO jaundice Renal: NO frequency, NO hesitancy, NO urgency, NO hematuria, NO nocturia, NO i ncontinence MSK: NO muscle weakness, NO gout, NO arthritis, NO muscle stiffness Neuro: NO headaches, NO tremors, NO weakness, NO paralysis, NO seizures, NO loss of consciousness, NO numbness. Hem: NO anemia, NO easy bruising/bleeding, NO petechiae, NO purpura Endo: NO heat/cold intolerance, NO excessive sweating, NO polyuria, NO polydipsia, NO polyphagia, NO thyroid problems, Yes diabetes Pysch: NO mood, NO anxiety, NO depression ED Exam Narrative Physical exam: General Appearance: Alert & Oriented X3, well-nourished male who is lying in bed in mild distress HEENT: Skull symmetrical and atraumatic. Conjunctivae pale pink and moist. Pupils equal, round, reactive to light and accommodation (PERRL). External ear without lesion or discharge. Straight, nares patient, mucosa pink, no discharge. Cardio: Normal Rate and Rhythm with S1 and S2 heart sounds. No murmurs or extra heart sounds auscultated. No bruits on carotid auscultation. No peripheral edema or cyanosis. Lungs: Symmetric with good expansion. Chest and back non-tender. Breath sounds vesicular without crackles, wheezing or rhonchi Abdomen: Non-tender, Non-distended, Normal Reactive Bowel Sounds Neuro: Alert, cooperative, oriented to person, place, and time. Speech clear. CN grossly intact. Upper motor strength 5/5 and Lower motor strength 5/5. Sensation intact. Course Quality Measures none Orders Category Date Time Status Admit to Inpatient Status Routine Admission 12/26/24 11:55 Active Patient Condition Routine Admission 12/26/24 11:55 Ordered Activity as Tolerated Routine Care 12/26/24 11:55 Ordered Aspiration precautions ONCE Care 12/26/24 11:59 Active EKG (ED ONLY) *Do not use* NOW Care 12/26/24 04:33 Completed Glucose [Bedside Blood Glucose] NOW Care 12/26/24 04:22 Active Notify provider NEEDED Care 12/26/24 11:55 Active Nurse Swallow Screen X1 Care 12/26/24 11:59 Active Saline [Insert IV] NOW Care 12/26/24 04:20 Active Seizure precautions NEEDED Care 12/26/24 11:55 Active Straight [In and Out Catheter] X1 Care 12/26/24 04:[address] abdomen pelvis wo con Stat Exams 12/26/24 04:[address] head/brain wo con Stat Exams 12/26/24 04:38 Completed EKG (ED Only) Stat Exams 12/26/24 04:33 Draft US gall bladder Stat Exams 12/26/24 04:34 Completed XR chest 1V portable Stat Exams 12/26/24 04:33 Completed Acetaminophen Stat Lab 12/26/24 04:09 Completed Alcohol, Blood Medical Stat Lab 12/26/24 04:09 Completed Ammonia Stat Lab 12/26/24 05:35 Completed Amylase Stat Lab 12/26/24 04:09 Completed BNP [B-Type Natriuretic Peptide] Stat Lab 12/26/24 04:09 Completed Beta Hydroxybutyrate Stat Lab 12/26/24 04:09 Completed Bilirubin,Direct Stat Lab 12/26/24 04:09 Completed CBC AM DRAW Lab 12/27/24 05:00 Ordered CBC AM DRAW Lab 12/28/24 05:00 Ordered CBC AM DRAW Lab 12/29/24 05:00 Ordered CBC Stat Lab 12/26/24 04:09 Completed CK [Creatine Kinase] Stat Lab 12/26/24 04:09 Completed CMP [Comprehensive Metabolic Panel] Stat Lab 12/26/24 04:09 Completed Comprehensive Metabolic Panel AM DRAW Lab 12/27/24 05:00 Ordered Comprehensive Metabolic Panel AM DRAW Lab 12/28/24 05:00 Ordered Comprehensive Metabolic Panel AM DRAW Lab 12/29/24 05:00 Ordered Drug Screen,Urine Stat Lab 12/26/24 08:18 Completed Hemoglobin A1C [Glycohemoglobin w (eAG)] Stat Lab 12/26/24 04:09 Completed Lactate (Lactic Acid) Stat Lab 12/26/24 05:35 Completed Lactic Acid, 3 HR Stat Lab 12/26/24 09:15 Completed Lipase Stat Lab 12/26/24 04:09 Completed Lipid Panel AM DRAW Lab 12/27/24 05:00 Ordered Magnesium AM DRAW Lab 12/27/24 05:00 Ordered Magnesium AM DRAW Lab 12/28/24 05:00 Ordered Magnesium AM DRAW Lab 12/29/24 05:00 Ordered Magnesium Stat Lab 12/26/24 04:09 Completed PT [Prothrombin Time with INR] Stat Lab 12/26/24 04:09 Completed PTT [Partial Thromboplastin Time] Stat Lab 12/26/24 04:09 Completed Phosphorous AM DRAW Lab 12/27/24 05:00 Ordered Phosphorous AM DRAW Lab 12/28/24 05:00 Ordered Phosphorous AM DRAW Lab 12/29/24 05:00 Ordered TSH [Thyroid Stimulating Hormone] Stat Lab 12/26/24 04:09 Completed Troponin I Stat Lab 12/26/24 04:09 Completed UA, C/S IF [Urinalysis, C/S if Indicated] Stat Lab 12/26/24 08:18 Completed VBG [Venous Blood Gas] Stat Lab 12/26/24 05:35 Completed Acetaminophen Tab [Tylenol Tab] Med 12/26/24 11:55 Active 650 mg PO Q6H PRN Acetaminophen Tab [Tylenol Tab] Med 12/26/24 11:55 Active 650 mg PO Q6H PRN Aspirin Med 12/26/24 10:26 Discontinued 325 mg PO X1 ONE Famotidine Inj [Pepcid Inj] Med 12/26/24 04:21 Discontinued 20 mg IVP X1 ONE Folic Acid Med 12/26/24 21:00 Active 1 mg PO BID Folic Acid Med 12/26/24 10:28 Discontinued 1 mg PO X1 ONE Heparin Inj Med 12/26/24 14:00 Active 5,000 unit SC Q8HR LORazepam [Ativan Inj] Med 12/26/24 04:21 Discontinued 2 mg IVP X1 ONE LORazepam [Ativan Inj] Med 12/26/24 12:00 Discontinued 2 mg IVP X1 ONE Magnesium Sulfate 2 GM Ivpb [Magnesium Sulfate Ivpb] Med 12/26/24 10:26 Active 2 gm in 50 ml IV X1 Nicotine Patch [Nicoderm Patch] Med 12/26/24 08:26 Discontinued 21 mg TOP X1 ONE Ondansetron Inj [Zofran Inj] Med 12/26/24 11:55 Active 4 mg IVP Q6H PRN Ondansetron Inj [Zofran Inj] Med 12/26/24 04:21 Discontinued 4 mg IVP X1 ONE Pantoprazole Inj [Protonix Inj] Med 12/26/24 04:21 Discontinued 40 mg IVP X1 ONE Ringers Lactated 1000 ml [Lactated Ringers] 1,000 ml Med 12/26/24 04:21 Discontinued IV 1,000 mls/hr Sodium Chloride 0.9% 1000 ml [Ns] 1,000 ml Med 12/26/24 06:47 Discontinued IV 999 mls/hr Thiamine Inj [Vitamin B-1 Inj] Med 12/26/24 04:21 Discontinued 100 mg IVP X1 ONE Thiamine Inj [Vitamin B-1 Inj] Med 12/26/24 12:15 Once 500 mg IV X1 ONE Thiamine Inj [Vitamin B-1 Inj] 500 mg Med 12/26/24 11:57 Discontinued Sodium Chloride 0.9% [Ns] 100 ml IV X1 Thiamine [Vitamin B-1] Med 12/26/24 21:00 Active 100 mg PO BID Code Status Routine Oth 12/26/24 11:55 Ordered Late Tray Request Routine Oth 12/26/24 08:32 Active Vital Signs Vital signs: Vital Signs Temperature 98.5 F 12/26/24 04:05 Pulse Rate 86 12/26/24 04:05 Respiratory Rate 18 12/26/24 04:05 Blood Pressure 108/74 12/26/24 04:05 Pulse Oximetry (%) 98 12/26/24 04:05 Oxygen Delivery Method Room Air 12/26/24 04:05 Chest Pain Patient data External records reviewed:: [facility] previous records Clinical information provided by:: patient Social determinants that could affect healthcare access:: substance use Patient has the following chronic illnesses:: Diabetes Mellitus Type 2 non insulin dependent and history of substance use disorder How is presenting disease/condition affected by chronic disease/condition?: exacerbated by (Substance Use Disorder ) Evaluation data The following diagnostics were reviewed and interpreted by me:: lab results Lab and/or radiology exams considered but not ordered:: None Interpretation Summary: Alcohol withdrawal CIWA 7 Medications / Prescriptions Medications or Prescriptions considered but not ordered:: none Medication administrations:: Medication Administration History Acetaminophen (Acetaminophen 325 Mg Tablet) 650 mg PO Q6H PRN PRN Reason: Fever >100.3 Stop: 01/25/25 11:54 Acetaminophen (Acetaminophen 325 Mg Tablet) 650 mg PO Q6H PRN PRN Reason: PAIN SCALE 1-3 (mild Stop: 01/25/25 11:54 Folic Acid (Folic Acid 1 Mg Tablet) 1 mg PO BID JOYA Stop: 12/31/24 20:59 Heparin Sodium (Porcine) (Heparin Sod Inj 5000 Unit/Ml Vial) 5,000 unit SC Q8HR OJYA Stop: 01/09/25 13:59 Magnesium Sulfate (Magnesium Sulfate Ivpb) 2 gm in 50 mls @ 25 mls/hr IV X1 ONE Stop: 12/26/24 12:25 Last Admin: 12/26/24 10:36 Dose: 25 mls/hr Documented By: ED Ondansetron HCl (Ondansetron Inj 2 Mg/Ml Inj 2 Ml) 4 mg IVP Q6H PRN; Protocol PRN Reason: NAUSEA OR VOMITING Stop: 01/25/25 11:54 Thiamine HCl (Thiamine 100 Mg Tablet) 100 mg PO BID JOYA Stop: 12/31/24 20:59 Thiamine HCl (Thiamine Inj 100 Mg/Ml Vial 2 Ml) 500 mg IV X1 ONE Stop: 12/26/24 12:16 Discontinued Medications Aspirin (Aspirin 325 Mg Tablet) 325 mg PO X1 ONE Stop: 12/26/24 10:27 Last Admin: 12/26/24 10:34 Dose: 325 mg Documented By: ED Famotidine (Famotidine Inj 10 Mg/Ml Vial 2 Ml) 20 mg IVP X1 ONE Stop: 12/26/24 04:22 Last Admin: 12/26/24 04:39 Dose: 20 mg Documented By: RC Folic Acid (Folic Acid 1 Mg Tablet) 1 mg PO X1 ONE Stop: 12/26/24 10:29 Last Admin: 12/26/24 10:33 Dose: 1 mg Documented By: ED Lactated Ringer's (Lactated Ringers) 1,000 mls @ 1,000 mls/hr IV .Q1H ONE Stop: 12/26/24 05:20 Last Infusion: 12/26/24 06:18 Dose: Infused Documented By: Admin: 12/26/24 04:54 Dose: 1,000 mls/hr Documented By: RC Sodium Chloride (Ns) 1,000 mls @ 999 mls/hr IV .Q1H1M ONE Stop: 12/26/24 07:47 Last Infusion: 12/26/24 09:36 Dose: Infused Documented By: Admin: 12/26/24 08:35 Dose: 999 mls/hr Documented By: ED Thiamine HCl 500 mg/ Sodium (Chloride) 105 mls @ 205 mls/hr IV X1 ONE Stop: 12/26/24 12:27 Lorazepam (Lorazepam 2 Mg/Ml Vial) 2 mg IVP X1 ONE Stop: 12/26/24 04:22 Last Admin: 12/26/24 04:43 Dose: 2 mg Documented By: RC Lorazepam (Lorazepam 2 Mg/Ml Vial) 2 mg IVP X1 ONE Stop: 12/26/24 12:01 Nicotine (Nicotine Patch 21 Mg/24 Hr Patch.Td24) 21 mg TOP X1 ONE Stop: 12/26/24 08:27 Last Admin: 12/26/24 08:42 Dose: 21 mg Documented By: ED Ondansetron HCl (Ondansetron Inj 2 Mg/Ml Inj 2 Ml) 4 mg IVP X1 ONE; Protocol Stop: 12/26/24 04:22 Last Admin: 12/26/24 04:37 Dose: 4 mg Documented By: RC Pantoprazole Sodium (Pantoprazole Inj 40 Mg Vial) 40 mg IVP X1 ONE Stop: 12/26/24 04:22 Last Admin: 12/26/24 04:51 Dose: 40 mg Documented By: RC Thiamine HCl (Thiamine Inj 100 Mg/Ml Vial 2 Ml) 100 mg IVP X1 ONE Stop: 12/26/24 04:22 Last Admin: 12/26/24 04:42 Dose: 100 mg Documented By: RC none Consultations Consultation(s) initiated? (list below): Yes Consultation #1 (Physician, Specialty, Details): Hospital Team Time: 10:50 Diagnosis Chest Pain Differential Diagnosis: atypical chest pain, costochondritis and other (Alcohol Withdrawal ) Most likely diagnosis given after review of the tests above:: Alcohol Withdrawal Admission Indicated Admission indicated?: indicated Admission Request Was there a request for admission?: Yes Admission Attestation Admission request attestation: Discussed case with Dr. Johnson, PGY-2, from Hospitalist service regarding admission. Discussed patients ED course, exam findings, labs, and radiology results. The Hospitalist agrees to accept the patient for admission. Disposition Plan Disposition Plan: Admit Discharge Plan Plan Patient Disposition: Admit Acute Care w/in Hospital Patient condition on transfer: Stable Prescriptions/Referrals Prescriptions/Med Rec: No Action tramadol 50 mg tablet 50 mg PO Q6H PRN (Reason: pain) Qty: 28 0RF acetaminophen [Acetaminophen Extra Strength] 500 mg tablet 1,000 mg PO Q6H MDD 1000mg PRN (Reason: pain) Qty: 90 0RF tramadol 50 mg tablet 50 mg PO Q6H PRN (Reason: pain) Qty: 28 0RF hydrocodone-acetaminophen 5-325 mg tablet 1 tab PO BID MDD 10 PRN (Reason: pain) Qty: 10 0RF ibuprofen 600 mg tablet 600 mg PO Q6H Qty: 30 0RF gabapentin 300 mg capsule 300 mg PO HS Patient Comments: TAKE 1 CAPSULE BY MOUTH EVERY DAY AT BEDTIME sennosides-docusate sodium [Senna-S] 8.6-50 mg tablet 1 tab-cap PO QDAY Qty: 30 0RF aspirin 81 mg tablet,delayed release (DR/EC) 81 mg PO BID Qty: 60 0RF acetaminophen [Acetaminophen Extra Strength] 500 mg tablet 1,000 mg PO Q6H MDD 1000mg PRN (Reason: pain) Qty: 90 0RF gabapentin 300 mg capsule 300 mg PO .qhs Qty: 30 0RF doxycycline hyclate 100 mg tablet 100 mg PO BID Qty: 14 0RF oxycodone 5 mg tablet 5 mg PO Q6H MDD 40 PRN (Reason: pain) Qty: 28 0RF tramadol 50 mg tablet 50 mg PO Q8H PRN (Reason: pain) Qty: 28 0RF acetaminophen [Acetaminophen Extra Strength] 500 mg tablet 1,000 mg PO Q6H MDD 1000mg PRN (Reason: pain) Qty: 90 0RF Problem List Clinical Impression: Alcohol abuse, Diabetes, Alcohol withdrawal Patient/Caregiver Discharge Instructions Print Language: Malaysian Stand Alone Forms: Linda Award Info., Patient Portal Info Letter
[2024-12-26] MEDS: FOLIC ACID 1 MG TABLET PO ×2 (10:33→21:58)
[2024-12-26] MEDS: Magnesium Sulfate 2 GM Ivpb 2 GM/50 ML BAG IV (10:36)
--- NOTE | 2024-12-26 12:12 | PC.NURSE ---
called Dr. Barnes to verify thiamine order.
[2024-12-26] MEDS: THIAMINE INJ 100 MG/ML VIAL 2 ML 500 MG IV (12:28)
--- NOTE | 2024-12-26 14:18 | ESHP_ITS ---
<Statement entered by Astrid Johnson MD - 12/26/24 18:00> Mr. Whitfield is a 34-year-old male with past medical history of alcohol use disorder and prior history of alcohol induced seizures not on medications, type 2 diabetes on metformin and history of questionable IA 4 years ago presented to the ED with generalized weakness nausea and visual hallucinations. Patient states he has been binge drinking whiskey for the past 9 days and started feeling unwell for the past 3 days. Patient reports his last drink was on Wednesday. Patient also endorses to have been sober for 5 years and had relapse and has been binge drinking off and on for the past 4 years. Patient states when he had a seizure from alcohol intoxication he also had reportedly had an IA and was airlifted to [place] and was in ICU for 16 days. Currently patient CIWA is 9, CIWA protocol versed and Librium is ordered. Will continue to monitor throughout patient's hospitalization. Patient was seen and examined by me personally. I have directly supervised and reviewed documentation by the team resident and agree with its findings. ------- Plan of care was discussed with the attending, Dr. Belia Johnson, PGY-2 Documentation for date of: 12/26/24 HPI History of Present Illness History of present illness: Mr. Whitfield is a 34 y/o male with PMH EtOH use disorder c/b withdrawal seizures, T2DM who presented to the ED on 11/25 with generalized weakness, sternal chest pain that does not radiate, visual hallucinations, and nausea x 1 day. Last drink 12/25. Patient was sober for 4 years and then recently went on a marshall for 9 days, reports drinking 5th of Caleb daily. Does not cite any particular incident for the marshall but does note that the stress of living with family members who also have substance use problems has been building, causing him to start drinking again. He was previously hospitalized once before for delirium tremens. He was air lifted to [facility] for IA and was admitted to ICU for alcohol withdrawal induced seizures in 2019. Per ED note, patient described chest pain as sternal, not radiating, lasting hours, not reproducible with palpation or deep inspiration. Initial CIWA 7. Upon evaluation of patient at bedside, patient denies chest pain, chest pressure, headache, acute changes in vision, nausea, vomiting, anxiety, auditory hallucinations. Reports sweating, chills, bilateral upper extremity tremor, visual hallucinations including bases and the curtains in the room, and tactile hallucinations such as bugs crawling on him. Denies subjective fever, recent illnesses, recent hospitalizations. PCP: [facility] ED course: Afebrile, VSS. Labs significant for hgb 17.1, AST 534, ALT 354, T. bili 1.3, D bili 0.5. Lactic acid 4.7 --> 4.1 after IVF. A1c 8.1. UDS positive THC. EtOH 313.1. Acetaminophen levels, amylase, lipase, VBG, ammonia, BNP, TSH, BHB, troponin, coagulation panel WNL. CK 207. EKG showed NSR, HR 84, QTc 454. UA positive for 2+ protein, 3+ glucose, 2+ ketones, 1+ blood, 5 RBCs. Chest x-ray and CT head unremarkable. Gallbladder ultrasound unremarkable. CT abdomen/pelvis showed hepatomegaly with diffuse fatty infiltration, nonobstructing left renal calculus, soft calcification 4 mm anterior right kidney, no hydronephrosis or ureteral calculi. Given Zofran, famotidine IV, thiamine 100 IV, lorazepam 2 IV, pantoprazole 40 IV, 2L IVF, nicotine patch, folic acid 1 mg, aspirin 325 mg, magnesium sulfate 2 g IV. PMHx: EtOH use disorder c/b withdrawal seizures, T2DM, avascular necrosis b/l hips, IA Allergies: NKDA Home meds: Metformin 500 mg BID (ran out of meds ~1-2 weeks ago) SgHx: Bilateral hip arthroplasty SHx: Drinks 1/5 of Caleb daily, 1 PPD since age 14. Denies other recreational drug use, although UDS positive THC. Patient lives with father, father's and her son who all have polysubstance use disorder. FHx: Polysubstance use disorder including meth -father Review of Systems Review of Systems Narrative Review of Systems: 14 point ROS negative other than HPI Exam Vital Signs Temp Pulse Resp BP Pulse Ox O2 Del Method 98.6 F 84 18 106/64 98 Room Air 12/26/24 12:17 12/26/24 12:17 12/26/24 12:17 12/26/24 12:17 12/26/24 12:17 12/26/24 12:17 Narrative Exam General: No acute distress, lying in bed with lights off Eye: PERRL, EOMI, normal conjunctiva, no scleral icterus HENT: Normocephalic, atraumatic, normal hearing, dry oral mucosa Neck: Supple, non-tender, no JVD, no lymphadenopathy Lungs: Clear to auscultation bilaterally, non-labored respirations, symmetric chest rise, no use of accessory muscles Heart: Normal S1 and S2, no S3 or S4 appreciated. Normal rate and regular rhythm, no murmurs, rubs gallops, or edema. Peripheral pulses intact bilaterally, capillary refill brisk distally Abdomen: Soft, mild suprapubic tenderness, non-distended, normal bowel sounds. No guarding or rebound tenderness. Musculoskeletal: Normal range of motion and strength, no tenderness or swelling Skin: Skin is warm, dry, no rashes or lesions. Tattoos appreciated. Neurologic: Alert, awake and oriented x3. CN II-XII grossly intact. No focal neuro deficits. No signs of meningeal irritation noted. Psychiatric: Cooperative, appropriate mood and affect. Does not appear to be responding to internal stimuli, tight associations, blunted affect CIWA: Nausea/vomitin Tremor: 2 Paroxysmal sweats: 1 Anxiety: 0 Agitation: 0 Tactile disturbance: 4 Auditory disturbance: 0 Visual disturbance: 2 Headache/fullness in head: 0 Orientation/clouding of sensorium: 0 Total: 9 Results: Labs 12/27/24 04:54 12/27/24 04:54 Labs: Short CBC 12/26/24 Range/Units 04:09 WBC 6.7 (3.8-10.6) Thou/mm3 Hgb 17.1 H (13.5-16.0) g/dL Hct 48.9 (41.0-53.0) % Plt Count 170 (140-440) Thou/mm3 BMP 12/26/24 04:09 Sodium 145 Potassium 3.9 Chloride 103 Carbon Dioxide 28.0 BUN 8 L Creatinine 0.6 Glucose 147 H Calcium 9.0 Cardiac Enzymes 12/26/24 Range/Units 04:09 Total Creatine Kinase 207 H D (34-171) U/L Troponin I < 0.020 (0.0-0.045) ng/mL Liver Function 12/26/24 Range/Units 04:09 Total Bilirubin 1.3 H (0.3-1.2) mg/dL Direct Bilirubin 0.5 H (0.0-0.3) mg/dL AST 534 H* (0-34) U/L ALT 354 H (10-49) U/L Alkaline Phosphatase 83 (46-116) U/L Albumin 4.9 (3.5-5.0) gm/dL Urine 12/26/24 Range/Units 08:18 Urine Color Yellow (Lt Yel-Yel) Urine Clarity Clear (Clear/Hazy) Urine pH 6.5 (5.0-7.0) Ur Specific [place] 1.025 (1.001-1.035) Urine Protein 2+ A (Neg - Trace) Urine Glucose (UA) 3+ A (Negative) ABG Interpretation ABG results: 12/26/24 05:35 VBG pH 7.46 VBG pCO2 41 VBG pO2 24 VBG Base Excess 5 H Quality Measures Quality Measures none Medications Home Medications and Allergies Home Medications ?Medication ?Instructions ?Recorded ?Confirmed ?Type gabapentin 300 mg capsule 300 mg PO HS 08/27/23 History Allergies Allergy/AdvReac Type Severity Reaction Status Date / Time No Known Allergies Allergy Verified 02/23/24 14:54 Visit Medications Acetaminophen (Acetaminophen 325 Mg Tablet) 650 mg PO Q6H PRN PRN Reason: Fever >100.3 Stop: 01/25/25 11:54 Acetaminophen (Acetaminophen 325 Mg Tablet) 650 mg PO Q6H PRN PRN Reason: PAIN SCALE 1-3 (mild Stop: 01/25/25 11:54 Chlordiazepoxide HCl (Chlordiazepoxide Hcl 25 Mg Capsule) 50 mg PO Q6HR JOYA Stop: 12/27/24 00:00 Chlordiazepoxide HCl (Chlordiazepoxide Hcl 10 Mg Capsule) 50 mg PO Q8HR JOYA Stop: 12/28/24 00:00 Chlordiazepoxide HCl (Chlordiazepoxide Hcl 25 Mg Capsule) 50 mg PO Q12H JOYA Stop: 12/29/24 00:00 Chlordiazepoxide HCl (Chlordiazepoxide Hcl 10 Mg Capsule) 50 mg PO X1 ONE Stop: 12/29/24 20:01 Folic Acid (Folic Acid 1 Mg Tablet) 1 mg PO BID JOYA Stop: 12/31/24 20:59 Heparin Sodium (Porcine) (Heparin Sod Inj 5000 Unit/Ml Vial) 5,000 unit SC Q8HR JOYA Stop: 01/09/25 13:59 Lorazepam (Lorazepam 0.5 Mg Tablet) 0.5 mg PO Q4HR PRN PRN Reason: CIWA Score 2-6 Stop: 12/31/24 14:07 Lorazepam (Lorazepam 0.5 Mg Tablet) 1 mg PO Q4HR PRN PRN Reason: CIWA SCORE 7-11 Stop: 12/31/24 14:07 Lorazepam (Lorazepam 0.5 Mg Tablet) 2 mg PO Q4HR PRN PRN Reason: CIWA SCORE 14-20 Stop: 12/31/24 14:07 Ondansetron HCl (Ondansetron Inj 2 Mg/Ml Inj 2 Ml) 4 mg IVP Q6H PRN; Protocol PRN Reason: NAUSEA OR VOMITING Stop: 01/25/25 11:54 Thiamine HCl (Thiamine 100 Mg Tablet) 100 mg PO BID [facility] Stop: 12/31/24 20:59 Discontinued Medications Aspirin (Aspirin 325 Mg Tablet) 325 mg PO X1 ONE Stop: 12/26/24 10:27 Last Admin: 12/26/24 10:34 Dose: 325 mg Famotidine (Famotidine Inj 10 Mg/Ml Vial 2 Ml) 20 mg IVP X1 ONE Stop: 12/26/24 04:22 Last Admin: 12/26/24 04:39 Dose: 20 mg Folic Acid (Folic Acid 1 Mg Tablet) 1 mg PO X1 ONE Stop: 12/26/24 10:29 Last Admin: 12/26/24 10:33 Dose: 1 mg Lactated Ringer's (Lactated Ringers) 1,000 mls @ 1,000 mls/hr IV .Q1H ONE Stop: 12/26/24 05:20 Last Infusion: 12/26/24 06:18 Dose: Infused Sodium Chloride (Ns) 1,000 mls @ 999 mls/hr IV .Q1H1M ONE Stop: 12/26/24 07:47 Last Infusion: 12/26/24 09:36 Dose: Infused Magnesium Sulfate (Magnesium Sulfate Ivpb) 2 gm in 50 mls @ 25 mls/hr IV X1 ONE Stop: 12/26/24 12:25 Last Infusion: 12/26/24 12:36 Dose: Infused Thiamine HCl 500 mg/ Sodium (Chloride) 105 mls @ 205 mls/hr IV X1 ONE Stop: 12/26/24 12:27 Lorazepam (Lorazepam 2 Mg/Ml Vial) 2 mg IVP X1 ONE Stop: 12/26/24 04:22 Last Admin: 12/26/24 04:43 Dose: 2 mg Lorazepam (Lorazepam 2 Mg/Ml Vial) 2 mg IVP X1 ONE Stop: 12/26/24 12:01 Last Admin: 12/26/24 12:33 Dose: 2 mg Nicotine (Nicotine Patch 21 Mg/24 Hr Patch.Td24) 21 mg TOP X1 ONE Stop: 12/26/24 08:27 Last Admin: 12/26/24 08:42 Dose: 21 mg Ondansetron HCl (Ondansetron Inj 2 Mg/Ml Inj 2 Ml) 4 mg IVP X1 ONE; Protocol Stop: 12/26/24 04:22 Last Admin: 12/26/24 04:37 Dose: 4 mg Pantoprazole Sodium (Pantoprazole Inj 40 Mg Vial) 40 mg IVP X1 ONE Stop: 12/26/24 04:22 Last Admin: 12/26/24 04:51 Dose: 40 mg Thiamine HCl (Thiamine Inj 100 Mg/Ml Vial 2 Ml) 100 mg IVP X1 ONE Stop: 12/26/24 04:22 Last Admin: 12/26/24 04:42 Dose: 100 mg Thiamine HCl (Thiamine Inj 100 Mg/Ml Vial 2 Ml) 500 mg IV X1 ONE Stop: 12/26/24 12:16 Last Admin: 12/26/24 12:28 Dose: 500 mg Assessment & Plan Plan Mr. Whitfield is a 34 y/o male with PMH EtOH use disorder c/b withdrawal seizures, T2DM who presented to the ED on 11/25 with generalized weakness, sternal chest pain that does not radiate, visual hallucinations, and nausea x 1 day. Last drink 12/25. Has been drinking fifth of Caleb daily 9 days. EtOH 313.1, UDS positive THC. Admitted for alcohol withdrawal. # Alcohol withdrawal # Polysubstance use disorder (EtOH, tobacco, THC) # Hx delirium tremens Patient has a long history of alcohol use with intermittent periods of sobriety. He reports drinking half 1/5 Caleb daily. Last drink 12/25. Patient was sober for 4 years recently went on a marshall for the last 9 days. Patient denies other recreational drug use including IVDU. Patient reports sweating, bilateral upper extremity tremor, visual hallucinations including bases and the curtains in the room, and tactile hallucinations such as bugs crawling on him. CIWA 9 on exam On admit EtOH 313.1, UDS positive THC. Plan: - CIWA with Ativan PO - Librium PO as below: - Day 1: 50 mg q6h - Day 2: 50 mg q8h - Day 3: 50 mg BID - Day 4 50 mg HS - Folate 1 mg PO BID - Thiamine 500 mg PO x1 - Thiamine 100 mg PO BID - Nicotine patch PRN - Seizure and aspiration precautions # Transaminitis # Elevated total bilirubin #Elevated indirect bilirubin i/s/o EtOH use On admit AST 534, ALT 354, T. bili 1.3, D bili 0.5 Amylase, lipase, ammonia unremarkable. Normal synthetic liver function Gallbladder ultrasound unremarkable CT A/P: hepatomegaly with diffuse fatty infiltration, nonobstructing left renal calculus, soft calcification 4 mm anterior right kidney, no hydronephrosis or ureteral calculi. Plan: - CTM with daily CMP # Chest pain -resolved Most likely not cardiac in nature EKG and troponin unremarkable Aspirin 325 mg PO x1 in ED Plan: - CTM # Elevated lactic acid On admit lactic acid 4.7 --> 4.1 after 2 L IV fluids Plan: - Maintenance fluids 125 mL/h LR # Type 2 diabetes mellitus Home med: Metformin 500 mg BID. Patient ran out of medications 1 to 2 weeks ago A1c 8.1 Plan: - SSI #Hx IA EKG NSR Plan: - Pending TTE Checklist Dispo: Admit to tele for CIWA Diet: Carb consistent Bowel Reg: doc/senna PRN VTE ppx: heparin subQ GI ppx: pantoprazole 20 mg PO daily Pain mgmt: Tylenol PO PRN Code status: full Plan discussed with Dr. Masood Johnson and Dr. Belia Barnes MD PGY1 Attending Provider Attestation/Addendum I, Haley Celaya DO, attest that I was physically present for the marie portions of the service and evaluated the patient with the resident and I reviewed and discussed the case with the resident and agree with the resident's findings and plans of care as documented above Patient is a 34-year-old male with past medical history of chronic alcohol use and withdrawal seizures, type 2 diabetes who presented to the ED due to generalized weakness, nausea, visual disturbances and tremors that began 3 to 4 days ago. Patient had previously been sober for 5 years, but relapsed 9 days ago. Patient has since been trying to cut down his alcohol consumption for the past 3 to 4 days, but has been experiencing withdrawal symptoms since. Patient drinks 1/5 of vodka daily. Upon evaluation in the ED, patient was noted to have significant lactic acidosis of 4.7. He cannot recall if he had any falls or loss of consciousness or seizures at home. Patient lives alone. Upon evaluation in the ED, he was noted to have hemoconcentration with hemoglobin of 17.1, alcoholic hepatitis with T. bili at 1.3, AST of 534 and ALT at 354. A1c was also noted to be 8.1. Patient states that he usually takes metformin at home, but has run out of his medications recently. He has been having a very poor diet due to his alcohol consumption. Patient is noted to be very tremulous and unable to hold his glass of water. He states that all objects appear to be moving in the room. CIWA score of 13. Will admit to telemetry for further workup and management of acute alcohol withdrawal. Will start on librium and CIWA protocol. Will give IV fluids as patient appears dehydrated. Will also obtain echocardiogram as patient reportedly had an IA 5 years ago.
[2024-12-26] MEDS: RINGERS LACTATED 1000 ML 1,000 ML 125 ML IV ×2 (15:18→23:35)
[2024-12-26] MEDS: HEPARIN SOD INJ 5000 UNIT/ML VIAL SC ×2 (15:22→21:58)
--- NOTE | 2024-12-26 16:05 | ECHO_ITS ---
Patient Info Name: Rodney Whitfield Age: 34 years : 1990 Gender: Male Ht: 188 cm Wt: 54 kg BSA: 1.66 m2 BP: 96 / 58 mmHg HR: 79 bpm Exam Date: 12/27/2024 8:17 AM Admit Date: 12/26/2024 Site: [facility] Room Number: [id number] Patient Status: I Technical Quality: Fair Exam Type: CA echo doppler complete Business Representative: Cammy Villaseñor Ordering Physician: Amanda Barnes Study Info Indications hx OR - Primary Location: [id number] Left Ventricular Outflow Tract Name Value Normal LVOT 2D LVOT Diameter 1.9 cm Pulmonic Valve Name Value Normal PV Doppler PV Peak Velocity 103 cm/s Mitral Valve Name Value Normal MV Doppler MV Decel [place] 434 cm/s2 MV PHT 53 ms MV Area (PHT) 4.1 cm2 4.0-5.0 MV Diastolic Function MV E Peak Velocity 79 cm/s MV A Peak Velocity 68 cm/s MV E/A 1.2 MV Annular TDI MV Septal e' Velocity 10.3 cm/s MV E/e' (Septal) 7.7 MV Lateral e' Velocity 13.8 cm/s MV E/e' (Lateral) 5.8 MV e' Average 12.05 cm/s MV E/e' (Average) 6.7 Tricuspid Valve Name Value Normal TV Regurgitation Doppler TR Peak Velocity 233 cm/s Estimated PAP/RSVP RA Pressure 3 mmHg <=5 PA Systolic Pressure 25 mmHg <36 RV Systolic Pressure 25 mmHg <36 Aortic Valve Name Value Normal AV 2D/MM AV Cusp Sep (MM) 0.9 cm AV Regurgitation 2D LVOT Area 2.8 cm2 Ventricles Name Value Normal LV Dimensions 2D/MM IVS Diastolic Thickness (2D) 0.7 cm 0.6-1.0 LVID Diastole (2D) 4.7 cm 4.2-5.8 LVIW Diastolic Thickness (2D) 1.0 cm 0.6-1.0 LVID Systole (2D) 2.9 cm 2.5-4.0 LVOT Diameter 1.9 cm LV Mass (2D Cubed) 132.32 g 88.00-224.00 LV Mass Index (2D Cubed) 80 g/m2 49-115 Relative Wall Thickness (2D) 0.43 <=0.42 IVS/LVIW Diastolic Thickness (2D) 0.70 0.00-1.50 LV Fractional Shortening/Ejection Fraction 2D/MM LV Fractional Shortening (2D) 38 % 25-43 LV EF (2D Teichholz) 69 % Atria Name Value Normal LA Dimensions LA Volume (4C A-L) 35 ml LA Volume (BP A-L) 39 ml Left Ventricle Left ventricular chamber dimension is normal. Left ventricular systolic function is normal with visually estimated ejection fraction of 55-60%. There is concentric remodeling noted in the left ventricle. Left ventricular segmental wall motion is normal. There is normal diastolic function in the left ventricle. Right Ventricle Right ventricular chamber dimension is normal. Right ventricular systolic function is normal. Left Atrium Left atrial chamber dimension is normal. Right Atrium Right atrial chamber dimension is normal. Aortic Valve The aortic valve is trileaflet. There is mild aortic valve sclerosis. There is no aortic valve stenosis. There is no aortic valve regurgitation. Pulmonic Valve The pulmonic valve is normal. There is no pulmonic valve stenosis. There is no pulmonic regurgitation. Mitral Valve The mitral valve has normal leaflets. There is no mitral valve stenosis. There is mild mitral valve regurgitation. Tricuspid Valve The tricuspid valve leaflets are normal. There is no tricuspid valve stenosis. There is mild tricuspid valve regurgitation. No pulmonary hypertension, estimated pulmonary arterial systolic pressure is 25 mmHg and systemic blood pressure of 96 mmHg in systole. Pericardium/Pleural The pericardium appears normal. There is no pericardial effusion. No pleural effusion visualized. Inferior Vena Cava Normal inferior vena cava with >50% collapse upon inspiration consistent with normal right atrial pressure, 3 mmHg. Aorta The aortic measurements are indexed to age and body surface area. The aortic root at the sinus of Valsalva is not well visualized. The prox ascending aorta is not well visualized. Summary 1. Left ventricle size is normal and systolic function is normal. Estimated ejection fraction is 55-60%. There is normal diastolic function. There is concentric remodeling noted. 2. Right ventricle chamber size is normal and systolic function is normal. Estimated RVSP is 25 mmHg. 3. There is mild aortic valve sclerosis with no stenosis. 4. Normal IVC with estimated RA pressure 3 mmHg. Report Signatures Finalized by Attila Arredondo on 12/27/2024 12:48 PM
[2024-12-26 17:27] LABS: Creatine Kinase 206 U/L (34-171)
[2024-12-26] MEDS: MIDAZOLAM INJ 1 MG/ML VIAL 2 ML 2 MG IVP ×2 (19:27→22:25)
[2024-12-26] MEDS: INSULIN LISPRO (AdmeLOG) 1 UNIT/0.01 ML UNIT SC (19:28)
[2024-12-26] MEDS: THIAMINE 100 MG TABLET PO (21:58)
[2024-12-27] VITALS: BP 98/63; PULSE 59; PULSE 84; RESP 16; O2SAT 97
[2024-12-27] MEDS: MIDAZOLAM INJ 1 MG/ML VIAL 2 ML 2 MG IVP ×3 (02:48→16:58)
[2024-12-27 04:00] VITALS: BP 96/58; PULSE 60; PULSE 84; RESP 12; TEMP 36.8; O2SAT 95
[2024-12-27 05:30] LABS: Basophils # (Auto) 0.0 Thou/mm3 (0.0-0.2); Basophils % (Auto) 0 % (0-2.5); Eosinophils # (Auto) 0.1 Thou/mm3 (0.0-0.5); Eosinophils % (Auto) 1 % (0-10); Hematocrit 36.6 % (41.0-53.0); Hemoglobin 12.8 g/dL (13.5-16.0); Immature Granulocytes Auto 0.03 Thou/mm3 (0.00-0.00); Lymphocytes # (Auto) 1.7 Thou/mm3 (1.0-4.8); Lymphocytes % (Auto) 31 % (10-50); Mean Corpuscular HGB Conc 35.0 g/dl (31.0-37.0); Mean Corpuscular Hemoglobin 30.6 pg (25.0-35.0); Mean Corpuscular Volume 88 fL (80-100); Monocytes # (Auto) 0.3 Thou/mm3 (0.0-0.8); Monocytes % (Auto) 6 % (0-12); Neutrophils # (Auto) 3.3 Thou/mm3 (1.8-7.7); Neutrophils % (Auto) 61 % (37-80); Nucleated Red Blood Cell # 0.00 Thou/mm3 (0.00-0.00); Nucleated Red Blood Cell % 0 /100 WBC (0); Platelet Count 145 Thou/mm3 (140-440); RDW Standard Deviation 39.0 fL (35.1-43.9); Red Blood Count 4.18 Miln/mm3 (4.50-5.90); White Blood Count 5.4 Thou/mm3 (3.8-10.6)
[2024-12-27] MEDS: HEPARIN SOD INJ 5000 UNIT/ML VIAL SC ×3 (05:54→21:36)
[2024-12-27 06:00] VITALS: BMI 17.9
[2024-12-27 06:26] LABS: Alanine Aminotransferase 267 U/L (10-49); Albumin, Serum 3.9 gm/dL (3.5-5.0); Albumin/Globulin Ratio 3.3 (1.2-2.2); Alkaline Phosphatase 71 U/L (46-116); Anion Gap 7 (7-16); Aspartate Amino Transferase 353 U/L (0-34); BUN/Creatinine Ratio 10 Ratio (12-20); Bilirubin,Total 2.0 mg/dL (0.3-1.2); Blood Urea Nitrogen 6 mg/dL (9-23); Calcium 9.1 mg/dL (8.3-10.6); Calcium (Corrected) 9.2 mg/dL (8.5-10.1); Carbon Dioxide 29.6 mMol/L (20.0-31.0); Cardiac Risk Estimate 2.0 RATIO (4.0-6.7); Chloride 101 mMol/L (98-107); Cholesterol 160 mg/dL (132-200); Creatinine (Component) 0.6 mg/dL (0.6-1.3); Estimated Creatinine Clearance 133.6 mL/min (>60); Globulin 1.2 gm/dL (2.3-3.5); Glucose 216 mg/dL (74-106); HDL Cholesterol 82 mg/dL (40-60); LDL Cholesterol,Calculated 64 mg/dL (0-130); Magnesium 1.7 mg/dL (1.6-2.6); Osmolality,Calculated 280 (275-295); Phosphorous 3.8 mg/dL (2.4-5.1); Potassium 4.5 mMol/L (3.4-5.1); Sodium 138 mMol/L (136-145); Total Protein 5.1 gm/dL (5.7-8.2); Triglycerides 72 mg/dL (30-150); eGFR > 60 See Note
[2024-12-27] MEDS: RINGERS LACTATED 1000 ML 1,000 ML 125 ML IV ×3 (07:30→23:29)
[2024-12-27 08:00] VITALS: BP 119/85; PULSE 142; PULSE 85; RESP 9; O2SAT 99
[2024-12-27] MEDS: FOLIC ACID 1 MG TABLET PO ×2 (08:05→21:36)
[2024-12-27] MEDS: THIAMINE 100 MG TABLET PO ×2 (08:05→21:36)
[2024-12-27] MEDS: PANTOPRAZOLE 20 MG TABLET PO (08:05)
[2024-12-27] MEDS: MIDAZOLAM INJ 1 MG/ML VIAL 2 ML 4 MG IVP (08:16)
--- NOTE | 2024-12-27 09:14 | ESPR_ITS ---
<Statement entered by Astrid Johnson MD - 12/28/24 15:59> Patient is seen at bedside. CIWA is approximately 9. Patient did have full breakfast but continues to feel jittery anxious and mildly agitated. Patient has a prominent tremor. Patient also endorses to still seeing wavy lines. Denies any auditory hallucinations. Patient was seen and examined by me personally. I have directly supervised and reviewed documentation by the team resident and agree with its findings. ------- Plan of care was discussed with the attending, Dr. Belia Johnson, PGY-2 Documentation for date of: 12/27/24 Subjective Subjective Interval history: NAEO. Patient reports continued visual and auditory disturbances. States that he had a rough night in that he could not sleep and had multiple nightmares. Notes that his b/l UE tremor improved but persistent. Able to eat breakfast without nausea or vomiting. 12/26: Received Lorazepam 2 mg IV x2, midazolam 2 mg IV x2 12/27: Receive Midazolam 2 mg IV x1 so far Nurse CIWA scorin Patient elaborated on previous hospitalization: In 2019, patient had EtOH withdrawal and was in the hospital prior to being airlifted to [facility]. He does not remember if CPR was performed on him. Does not remember if he had an NV or cardiac arrest. At [place], patient was intubated and sedated for 6 days. He spent ~2 weeks in the hospital. Exam Vital Signs Temp Pulse Resp BP Pulse Ox O2 Del Method 98.2 F 84 12 96/58 L 95 Room Air 12/27/24 04:00 12/27/24 04:00 12/27/24 04:00 12/27/24 04:00 12/27/24 04:00 12/26/24 18:00 Narrative Exam General: No acute distress, lying in bed with lights off Eye: PERRL, EOMI, normal conjunctiva, no scleral icterus HENT: Normocephalic, atraumatic, normal hearing, dry oral mucosa Neck: Supple, non-tender, no JVD, no lymphadenopathy Lungs: Clear to auscultation bilaterally, non-labored respirations, symmetric chest rise, no use of accessory muscles Heart: Normal S1 and S2, no S3 or S4 appreciated. Normal rate and regular rhythm, no murmurs, rubs gallops, or edema. Peripheral pulses intact bilaterally, capillary refill brisk distally Abdomen: Soft, mild suprapubic tenderness, non-distended, normal bowel sounds. No guarding or rebound tenderness. Musculoskeletal: Normal range of motion and strength, no tenderness or swelling Skin: Skin is warm, dry, no rashes or lesions. Tattoos appreciated. Neurologic: Alert, awake and oriented x3. CN II-XII grossly intact. No focal neuro deficits. No signs of meningeal irritation noted. Psychiatric: Cooperative, appropriate mood and affect. Does not appear to be responding to internal stimuli, tight associations, blunted affect CIWA: Nausea/vomitin Tremor: 2 Paroxysmal sweats: 1 Anxiety: 0 Agitation: 0 Tactile disturbance: 0 Auditory disturbance: 2 Visual disturbance: 2 Headache/fullness in head: 0 Orientation/clouding of sensorium: 0 Total: 7 Objective Labs 12/28/24 05:01 12/28/24 05:01 Labs: Laboratory Results - last 24 hr 12/26/24 12/26/24 12/27/24 09:15 16:48 04:54 WBC 5.4 RBC 4.18 L Hgb 12.8 L D Hct 36.6 L D MCV 88 MCH 30.6 MCHC 35.0 RDW Std Deviation 39.0 Plt Count 145 Neut % (Auto) 61 Lymph % (Auto) 31 [place] % (Auto) 6 Eos % (Auto) 1 Baso % (Auto) 0 Neut # (Auto) 3.3 Lymph # (Auto) 1.7 [place] # (Auto) 0.3 Eos # (Auto) 0.1 Baso # (Auto) 0.0 Immature Gran # (Auto) 0.03 H Absolute Nucleated RBC 0.00 Immature Gran % 1 H Nucleated RBC % 0 Sodium 138 Potassium 4.5 D Chloride 101 Carbon Dioxide 29.6 Anion Gap 7 BUN 6 L Creatinine 0.6 Estim Creat Clear Calc 133.6 eGFR > 60 BUN/Creatinine Ratio 10 L Glucose 216 H D Calculated Osmolality 280 Lactic Acid 4.1 H* Calcium 9.1 Corrected Calcium 9.2 Phosphorus 3.8 Magnesium 1.7 Total Bilirubin 2.0 H D AST 353 H ALT 267 H Alkaline Phosphatase 71 Total Creatine Kinase 206 H Total Protein 5.1 L Albumin 3.9 D Globulin 1.2 L Albumin/Globulin Ratio 3.3 H Triglycerides 72 Cholesterol 160 LDL Cholesterol, Calc 64 HDL Cholesterol 82 H Cholesterol/HDL Ratio 2.0 L ABG Interpretation ABG results: 12/26/24 05:35 VBG pH 7.46 VBG pCO2 41 VBG pO2 24 VBG Base Excess 5 H Quality Measures Quality Measures none Assessment & Plan Assessment Current Active Medications: Generic Name Dose Route Start Last Admin Trade Name Russellq PRN Reason Stop Dose Admin Acetaminophen 650 mg 12/26/24 11:55 Acetaminophen 325 Mg Tablet PO 01/25/25 11:54 Q6H PRN Fever >100.3 Acetaminophen 650 mg 12/26/24 11:55 Acetaminophen 325 Mg Tablet PO 01/25/25 11:54 Q6H PRN PAIN SCALE 1-3 (mild Chlordiazepoxide HCl 50 mg 12/27/24 06:00 12/27/24 05:54 Chlordiazepoxide Hcl 10 Mg Capsule PO 12/30/24 00:00 50 mg Q8HR JOYA Administration Chlordiazepoxide HCl 50 mg 12/29/24 20:00 Chlordiazepoxide Hcl 10 Mg Capsule PO 12/29/24 20:01 X1 ONE Dextrose 25 ml 12/26/24 14:56 Dextrose 50%-Water Inj 50 Ml Syringe IV 01/25/25 14:55 Q15MIN PRN BG 50-70 responsive npo pt Dextrose 50 ml 12/26/24 14:56 Dextrose 50%-Water Inj 50 Ml Syringe IV 01/25/25 14:55 Q15MIN PRN BG <50 OR BG <70 & pt unresponsive Folic Acid 1 mg 12/26/24 21:00 12/27/24 08:05 Folic Acid 1 Mg Tablet PO 12/31/24 20:59 1 mg BID JOYA Administration Glucagon 1 mg 12/26/24 14:56 Glucagon Inj 1 Mg Vial IM Q15MIN PRN BG <70, and no IV access Heparin Sodium (Porcine) 5,000 unit 12/26/24 14:00 12/27/24 05:54 Heparin Sod Inj 5000 Unit/Ml Vial SC 01/09/25 13:59 5,000 unit Q8HR JOYA Administration Lactated Ringer's 1,000 mls @ 125 mls/hr 12/26/24 14:26 12/27/24 07:30 Lactated Ringers IV 01/25/25 14:25 125 mls/hr .Q8H JOYA Administration Insulin Human Lispro 0 unit 12/26/24 17:00 12/26/24 19:28 Insulin Lispro (Admelog) 1 Unit/0.01 Ml Unit SC 01/25/25 16:59 2 unit AC JOYA Administration Protocol Lorazepam 0.5 mg 12/26/24 14:08 Lorazepam 0.5 Mg Tablet PO 12/31/24 14:07 Q4HR PRN CIWA Score 2-6 Midazolam HCl 4 mg 12/26/24 18:00 12/27/24 08:16 Midazolam Inj 1 Mg/Ml Vial 2 Ml IVP 12/31/24 17:59 4 mg Q2HR PRN Administration CIWA 12-20 Midazolam HCl 2 mg 12/26/24 18:00 12/27/24 02:48 Midazolam Inj 1 Mg/Ml Vial 2 Ml IVP 12/31/24 17:59 2 mg Q2HR PRN Administration CIWA 7-11 Nicotine 14 mg 12/26/24 15:03 Nicotine Patch 14 Mg/24 Hr Patch.Td24 TOP 01/26/25 08:59 QDAY PRN nicotine cravings Ondansetron HCl 4 mg 12/26/24 11:55 Ondansetron Inj 2 Mg/Ml Inj 2 Ml IVP 01/25/25 11:54 Q6H PRN NAUSEA OR VOMITING Protocol Pantoprazole Sodium 20 mg 12/27/24 09:00 12/27/24 08:05 Pantoprazole 20 Mg Tablet PO 01/26/25 08:59 20 mg DAILY JOYA Administration Sennosides 1 tab 12/26/24 15:01 Senna/Docusate Sod 1 Tab Tablet PO 01/25/25 15:00 QDAY PRN CONSTIPATION Protocol Thiamine HCl 100 mg 12/26/24 21:00 12/27/24 08:05 Thiamine 100 Mg Tablet PO 12/31/24 20:59 100 mg BID JOYA Administration Plan Mr. Whitfield is a 34 y/o male with PMH EtOH use disorder c/b withdrawal seizures, T2DM who presented to the ED on 11/25 with generalized weakness, sternal chest pain that does not radiate, visual hallucinations, and nausea x 1 day. Last drink 12/25. Has been drinking fifth of Caleb daily 9 days. EtOH 313.1, UDS positive THC. Admitted for alcohol withdrawal. # Alcohol withdrawal # Polysubstance use disorder (EtOH, tobacco, THC) # Hx delirium tremens Patient has a long history of alcohol use with intermittent periods of sobriety. He reports drinking half 1/5 Caleb daily. Last drink 12/25. Patient was sober for 4 years recently went on a marshall for the last 9 days. Patient denies other recreational drug use including IVDU. Patient reports sweating, bilateral upper extremity tremor, visual hallucinations including bases and the curtains in the room, and tactile hallucinations such as bugs crawling on him. CIWA 9 on exam On admit EtOH 313.1, UDS positive THC. Plan: - CIWA: - Aitvan 0.5 mg PO q4h CIWA 2-6 - Midazolam 2 mg IV q2h CIWA7-11 - Midazolam 4 mg IV q2h CIWA 12-20 - Librium PO 50 mg q8h - Thiamine 100 mg PO BID - Nicotine patch PRN - Seizure and aspiration precautions - Refer PT # Transaminitis - improving # Elevated total bilirubin - uptrending #Elevated indirect bilirubin i/s/o EtOH use. Denies abdominal pain, N/V On admit AST 534, ALT 354, T. bili 1.3, D bili 0.5 Amylase, lipase, ammonia unremarkable. Normal synthetic liver function Gallbladder ultrasound unremarkable CT A/P: hepatomegaly with diffuse fatty infiltration, nonobstructing left renal calculus, soft calcification 4 mm anterior right kidney, no hydronephrosis or ureteral calculi. Plan: - CTM with daily CMP # Chest pain -resolved Most likely not cardiac in nature EKG and troponin unremarkable Aspirin 325 mg PO x1 in ED Plan: - CTM # Elevated lactic acid On admit lactic acid 4.7 --> 4.1 after 2 L IV fluids Plan: - Maintenance fluids 125 mL/h LR - Pending repeat lactic acid this afternoon # Type 2 diabetes mellitus Home med: Metformin 500 mg BID. Patient ran out of medications 1 to 2 weeks ago A1c 8.1 Plan: - SSI step 2 #Hx NV vs cardiac arrest? EKG NSR TTE: LVEF 55-60%, normal diastolic function. Concentric remodeling noted. Mild aortic valve sclerosis Plan: - Nothing to do at this time Checklist Dispo: Admit to tele for CIWA (day 2) Diet: Carb consistent Bowel Reg: doc/senna PRN VTE ppx: heparin subQ GI ppx: pantoprazole 20 mg PO daily Pain mgmt: Tylenol PO PRN Code status: full Plan discussed with Dr. Masood Johnson and Dr. Belia Barnes MD PGY1 Attending Provider Attestation/Addendum I, Haley Celaya DO, attest that I was physically present for the marie portions of the service and evaluated the patient with the resident and I reviewed and discussed the case with the resident and agree with the resident's findings and plans of care as documented above Patient seen and eval this a.m. Continues to require Versed and Ativan throughout the night. He remains on Librium 50 mg every 8 hours. He states he is doing well, but continues to have mild tremors on exam. CIWA score of 3 currently. Will continue current management and taper as tolerated.
[2024-12-27] MEDS: INSULIN LISPRO (AdmeLOG) 1 UNIT/0.01 ML UNIT SC ×2 (11:37→18:07)
[2024-12-27 12:00] VITALS: BP 114/85; PULSE 136; PULSE 50; RESP 13; O2SAT 100
[2024-12-27 13:17] VITALS: BMI 17.9
[2024-12-27 14:13] LABS: Lactate (Lactic Acid) 1.5 mMol/L (0.4-2.0)
[2024-12-27 16:00] VITALS: BP 106/79; PULSE 58; PULSE 66; RESP 9; O2SAT 99
--- NOTE | 2024-12-27 16:13 | PC.SS ---
Update: Patient under CIWA protocal.
[2024-12-27 20:00] VITALS: BP 113/67; PULSE 60; PULSE 65; RESP 14; TEMP 36.4; O2SAT 99
[2024-12-28] VITALS: BP 105/57; PULSE 61; PULSE 68; RESP 16; TEMP 36.5; O2SAT 98
[2024-12-28 04:00] VITALS: BP 117/76; PULSE 61; PULSE 68; RESP 16; TEMP 36.3; O2SAT 97
[2024-12-28 06:00] VITALS: BMI 17.9
[2024-12-28] MEDS: HEPARIN SOD INJ 5000 UNIT/ML VIAL SC (06:04)
[2024-12-28] MEDS: RINGERS LACTATED 1000 ML 1,000 ML 125 ML IV (06:08)
[2024-12-28 06:12] LABS: Basophils # (Auto) 0.0 Thou/mm3 (0.0-0.2); Basophils % (Auto) 0 % (0-2.5); Eosinophils # (Auto) 0.1 Thou/mm3 (0.0-0.5); Eosinophils % (Auto) 2 % (0-10); Hematocrit 37.0 % (41.0-53.0); Hemoglobin 12.6 g/dL (13.5-16.0); Immature Granulocytes Auto 0.03 Thou/mm3 (0.00-0.00); Lymphocytes # (Auto) 2.0 Thou/mm3 (1.0-4.8); Lymphocytes % (Auto) 35 % (10-50); Mean Corpuscular HGB Conc 34.1 g/dl (31.0-37.0); Mean Corpuscular Hemoglobin 30.4 pg (25.0-35.0); Mean Corpuscular Volume 89 fL (80-100); Monocytes # (Auto) 0.3 Thou/mm3 (0.0-0.8); Monocytes % (Auto) 5 % (0-12); Neutrophils # (Auto) 3.4 Thou/mm3 (1.8-7.7); Neutrophils % (Auto) 58 % (37-80); Nucleated Red Blood Cell # 0.00 Thou/mm3 (0.00-0.00); Nucleated Red Blood Cell % 0 /100 WBC (0); Platelet Count 104 Thou/mm3 (140-440); RDW Standard Deviation 39.0 fL (35.1-43.9); Red Blood Count 4.15 Miln/mm3 (4.50-5.90); White Blood Count 5.8 Thou/mm3 (3.8-10.6)
[2024-12-28 06:53] LABS: Alanine Aminotransferase 285 U/L (10-49); Albumin, Serum 3.8 gm/dL (3.5-5.0); Albumin/Globulin Ratio 2.7 (1.2-2.2); Alkaline Phosphatase 71 U/L (46-116); Anion Gap 6 (7-16); Aspartate Amino Transferase 310 U/L (0-34); BUN/Creatinine Ratio 10 Ratio (12-20); Bilirubin,Total 0.7 mg/dL (0.3-1.2); Blood Urea Nitrogen 6 mg/dL (9-23); Calcium 9.0 mg/dL (8.3-10.6); Calcium (Corrected) 9.2 mg/dL (8.5-10.1); Carbon Dioxide 28.9 mMol/L (20.0-31.0); Chloride 102 mMol/L (98-107); Creatinine (Component) 0.6 mg/dL (0.6-1.3); Estimated Creatinine Clearance 155.6 mL/min (>60); Globulin 1.4 gm/dL (2.3-3.5); Glucose 222 mg/dL (74-106); Magnesium 1.6 mg/dL (1.6-2.6); Osmolality,Calculated 278 (275-295); Phosphorous 3.7 mg/dL (2.4-5.1); Potassium 4.0 mMol/L (3.4-5.1); Sodium 137 mMol/L (136-145); Total Protein 5.2 gm/dL (5.7-8.2); eGFR > 60 See Note
--- NOTE | 2024-12-28 07:15 | ESPR_ITS ---
<Statement entered by Astrid Johnson MD - 12/29/24 08:13> Patient is seen at bedside. Her current CIWA is less than 3 patient denies any agitation anxiety and no tremor is noted. Patient is able to eat and sleep and rest. Patient is getting out of bed and going to the bathroom however patient did require Librium and lorazepam as well as Versed overnight. Patient wants to be discharged home however explained to patient that it is not safe to be discharged home and we would like to monitor him 1 more day. However patient is persistent about discharge and wants to leave AMA. Patient was seen and examined by me personally. I have directly supervised and reviewed documentation by the team resident and agree with its findings. ------- Plan of care was discussed with the attending, Dr. Belia Johnson, PGY-2 Documentation for date of: 12/28/24 Subjective Subjective Interval history: NAEO. Patient evaluated at bedside. Reports that he feels much better, no more visual, auditory or tactile disturbances. Continues to have mild tremor in b/l UE. Able to tolerate PO intake, no nausea or vomiting. Over past 24 hours, requiring: lorazepam 0.5 mg PO x1, midazolam 2 mg IV x3, midazolam 4 mg IV x1. CIWA: 11 --> 11 --> 2 --> 1 --> 0 Exam Vital Signs Temp Pulse Resp BP Pulse Ox O2 Del Method 97.4 F 68 16 117/76 97 Room Air 12/28/24 04:00 12/28/24 04:00 12/28/24 04:00 12/28/24 04:00 12/28/24 04:00 12/28/24 04:00 Narrative Exam General: No acute distress, lying in bed with lights off Eye: PERRL, EOMI, normal conjunctiva, no scleral icterus HENT: Normocephalic, atraumatic, normal hearing, dry oral mucosa Neck: Supple, non-tender, no JVD, no lymphadenopathy Lungs: Clear to auscultation bilaterally, non-labored respirations, symmetric chest rise, no use of accessory muscles Heart: Normal S1 and S2, no S3 or S4 appreciated. Normal rate and regular rhythm, no murmurs, rubs gallops, or edema. Peripheral pulses intact bilaterally, capillary refill brisk distally Abdomen: Soft, nontender, non-distended, normal bowel sounds. No guarding or rebound tenderness. Musculoskeletal: Normal range of motion and strength, no tenderness or swelling Skin: Skin is warm, dry, no rashes or lesions. Tattoos appreciated. Neurologic: Alert, awake and oriented x3. CN II-XII grossly intact. No focal neuro deficits. No signs of meningeal irritation noted. Psychiatric: Cooperative, appropriate mood and affect. Does not appear to be responding to internal stimuli, tight associations, blunted affect CIWA: Nausea/vomitin Tremor: 2 Paroxysmal sweats: 0 Anxiety: 0 Agitation: 0 Tactile disturbance: 0 Auditory disturbance: 0 Visual disturbance: 0 Headache/fullness in head: 0 Orientation/clouding of sensorium: 0 Total: 2 Objective Labs 12/28/24 05:01 12/28/24 05:01 Labs: Laboratory Results - last 24 hr 12/27/24 12/27/24 12/28/24 04:54 13:58 05:01 WBC 5.4 5.8 RBC 4.18 L 4.15 L Hgb 12.8 L D 12.6 L Hct 36.6 L D 37.0 L MCV 88 89 MCH 30.6 30.4 MCHC 35.0 34.1 RDW Std Deviation 39.0 39.0 Plt Count 145 104 L D Neut % (Auto) 61 58 Lymph % (Auto) 31 35 [place] % (Auto) 6 5 Eos % (Auto) 1 2 Baso % (Auto) 0 0 Neut # (Auto) 3.3 3.4 Lymph # (Auto) 1.7 2.0 [place] # (Auto) 0.3 0.3 Eos # (Auto) 0.1 0.1 Baso # (Auto) 0.0 0.0 Immature Gran # (Auto) 0.03 H 0.03 H Absolute Nucleated RBC 0.00 0.00 Immature Gran % 1 H 1 H Nucleated RBC % 0 0 Lactic Acid 1.5 ABG Interpretation ABG results: 12/26/24 05:35 VBG pH 7.46 VBG pCO2 41 VBG pO2 24 VBG Base Excess 5 H Quality Measures Quality Measures none Assessment & Plan Assessment Current Active Medications: Generic Name Dose Route Start Last Admin Trade Name Freq PRN Reason Stop Dose Admin Acetaminophen 650 mg 12/26/24 11:55 Acetaminophen 325 Mg Tablet PO 01/25/25 11:54 Q6H PRN Fever >100.3 Acetaminophen 650 mg 12/26/24 11:55 Acetaminophen 325 Mg Tablet PO 01/25/25 11:54 Q6H PRN PAIN SCALE 1-3 (mild Chlordiazepoxide HCl 50 mg 12/27/24 06:00 12/28/24 06:04 Chlordiazepoxide Hcl 10 Mg Capsule PO 12/30/24 00:00 50 mg Q8HR JOYA Administration Chlordiazepoxide HCl 50 mg 12/29/24 20:00 Chlordiazepoxide Hcl 10 Mg Capsule PO 12/29/24 20:01 X1 ONE Dextrose 25 ml 12/26/24 14:56 Dextrose 50%-Water Inj 50 Ml Syringe IV 01/25/25 14:55 Q15MIN PRN BG 50-70 responsive npo pt Dextrose 50 ml 12/26/24 14:56 Dextrose 50%-Water Inj 50 Ml Syringe IV 01/25/25 14:55 Q15MIN PRN BG <50 OR BG <70 & pt unresponsive Folic Acid 1 mg 12/26/24 21:00 12/27/24 21:36 Folic Acid 1 Mg Tablet PO 12/31/24 20:59 1 mg BID JOYA Administration Glucagon 1 mg 12/26/24 14:56 Glucagon Inj 1 Mg Vial IM Q15MIN PRN BG <70, and no IV access Heparin Sodium (Porcine) 5,000 unit 12/26/24 14:00 12/28/24 06:04 Heparin Sod Inj 5000 Unit/Ml Vial SC 01/09/25 13:59 5,000 unit Q8HR JOYA Administration Lactated Ringer's 1,000 mls @ 125 mls/hr 12/26/24 14:26 12/28/24 06:08 Lactated Ringers IV 01/25/25 14:25 125 mls/hr .Q8H JOYA Administration Insulin Human Lispro 0 unit 12/27/24 09:21 12/27/24 18:07 Insulin Lispro (Admelog) 1 Unit/0.01 Ml Unit SC 01/25/25 16:59 3 unit AC JOYA Administration Protocol Lorazepam 0.5 mg 12/26/24 14:08 12/27/24 22:51 Lorazepam 0.5 Mg Tablet PO 12/31/24 14:07 0.5 mg Q4HR PRN Administration CIWA Score 2-6 Midazolam HCl 4 mg 12/26/24 18:00 12/27/24 08:16 Midazolam Inj 1 Mg/Ml Vial 2 Ml IVP 12/31/24 17:59 4 mg Q2HR PRN Administration CIWA 12-20 Midazolam HCl 2 mg 12/26/24 18:00 12/27/24 16:58 Midazolam Inj 1 Mg/Ml Vial 2 Ml IVP 12/31/24 17:59 2 mg Q2HR PRN Administration CIWA 7-11 Nicotine 14 mg 12/26/24 15:03 Nicotine Patch 14 Mg/24 Hr Patch.Td24 TOP 01/26/25 08:59 QDAY PRN nicotine cravings Ondansetron HCl 4 mg 12/26/24 11:55 Ondansetron Inj 2 Mg/Ml Inj 2 Ml IVP 01/25/25 11:54 Q6H PRN NAUSEA OR VOMITING Protocol Pantoprazole Sodium 20 mg 12/27/24 09:00 12/27/24 08:05 Pantoprazole 20 Mg Tablet PO 01/26/25 08:59 20 mg DAILY JOYA Administration Sennosides 1 tab 12/26/24 15:01 Senna/Docusate Sod 1 Tab Tablet PO 01/25/25 15:00 QDAY PRN CONSTIPATION Protocol Thiamine HCl 100 mg 12/26/24 21:00 12/27/24 21:36 Thiamine 100 Mg Tablet PO 12/31/24 20:59 100 mg BID JOYA Administration Plan Mr. Whitfield is a 34 y/o male with PMH EtOH use disorder c/b withdrawal seizures, T2DM who presented to the ED on 11/25 with generalized weakness, sternal chest pain that does not radiate, visual hallucinations, and nausea x 1 day. Last drink 12/25. Has been drinking fifth of Caleb daily 9 days. EtOH 313.1, UDS positive THC. Admitted for alcohol withdrawal. # Alcohol withdrawal # Polysubstance use disorder (EtOH, tobacco, THC) # Hx delirium tremens Patient has a long history of alcohol use with intermittent periods of sobriety. He reports drinking half 1/5 Caleb daily. Last drink 12/25. Patient was sober for 4 years recently went on a marshall for the last 9 days. Patient denies other recreational drug use including IVDU. Patient reports sweating, bilateral upper extremity tremor, visual hallucinations including bases and the curtains in the room, and tactile hallucinations such as bugs crawling on him. CIWA 9 on exam On admit EtOH 313.1, UDS positive THC. Plan: - CIWA: - Aitvan 0.5 mg PO q4h CIWA 2-6 - Midazolam 2 mg IV q2h CIWA7-11 - Midazolam 4 mg IV q2h CIWA 12-20 - Librium PO 25 mg q8h - Thiamine 100 mg PO BID - Nicotine patch PRN - Seizure and aspiration precautions - Refer PT # Transaminitis - improving # Elevated total bilirubin - uptrending #Elevated indirect bilirubin i/s/o EtOH use. Denies abdominal pain, N/V On admit AST 534, ALT 354, T. bili 1.3, D bili 0.5 Amylase, lipase, ammonia unremarkable. Normal synthetic liver function Gallbladder ultrasound unremarkable CT A/P: hepatomegaly with diffuse fatty infiltration, nonobstructing left renal calculus, soft calcification 4 mm anterior right kidney, no hydronephrosis or ureteral calculi. Plan: - CTM with daily CMP # Chest pain -resolved Most likely not cardiac in nature EKG and troponin unremarkable Aspirin 325 mg PO x1 in ED Plan: - CTM # Elevated lactic acid - resolved On admit lactic acid 4.7 --> 4.1 after 2 L IV fluids --> 1.5 Plan: - Tolerating PO intake # Type 2 diabetes mellitus Home med: Metformin 500 mg BID. Patient ran out of medications 1 to 2 weeks ago A1c 8.1 Used 6U Lispro 12/27 Plan: - SSI step 3 #Hx [place] vs cardiac arrest? EKG NSR TTE: LVEF 55-60%, normal diastolic function. Concentric remodeling noted. Mild aortic valve sclerosis Plan: - Nothing to do at this time Checklist Dispo: Admit to tele for CIWA (day 3) Diet: Carb consistent Bowel Reg: doc/senna PRN VTE ppx: heparin subQ GI ppx: pantoprazole 20 mg PO daily Pain mgmt: Tylenol PO PRN Code status: full Plan discussed with Dr. Masood Johnson and Dr. Belia Barnes MD PGY1 Attending Provider Attestation/Addendum Roxana, Haley Celaya DO, attest that I was physically present for the marie portions of the service and evaluated the patient with the resident and I reviewed and discussed the case with the resident and agree with the resident's findings and plans of care as documented above Patient seen and evaluated at 12:04pm. He is very frustrated and anxious to go home. Patient continued to require IV pushes of Versed and Ativan in the past 24 hours. He remains on Librium. Will taper Librium dose at this time. If patient is not requiring any further PRNs, anticipate discharge within the next 24 hours. Explained to patient that his withdrawal symptoms are controlled due to medications at this point. Patient states that he has been an alcoholic for 15 years and knows that he will no longer be in withdrawals. Patient states that he will not drink since he will be living with his mother. Explained to patient it is best that he stay for another 24 hours. However, patient stated that he does not want to stay any longer and would like to sign AGAINST MEDICAL ADVICE. Discussed the risks of leaving AGAINST MEDICAL ADVICE, including, but not limited to, patient going back into withdrawals which be complicated by seizures, aspiration, respiratory arrest and ultimately cardiac arrest. Patient verbalized understanding and persisted that he would like to sign out against medical advice. [facility] nurse Lowry was present at time of discussion.
[2024-12-28 08:00] VITALS: BP 115/76; PULSE 67; PULSE 68; RESP 18; TEMP 36.3; O2SAT 99
[2024-12-28] MEDS: FOLIC ACID 1 MG TABLET PO (08:27)
[2024-12-28] MEDS: THIAMINE 100 MG TABLET PO (08:27)
[2024-12-28] MEDS: PANTOPRAZOLE 20 MG TABLET PO (08:27)
[2024-12-28 12:00] VITALS: BP 117/76; PULSE 58; PULSE 65; RESP 17; TEMP 36.1; O2SAT 99
--- NOTE | 2024-12-28 13:35 | ESDS_ITS ---
<Statement entered by Haley Celaya DO - 12/29/24 07:22> I, Haley Celaya DO, attest that I was physically present for the marie portions of the service and evaluated the patient with the resident and I reviewed and discussed the case with the resident and agree with the resident's findings and plans of care as documented above <Statement entered by Astrid Johnson MD - 12/29/24 07:12> Patient has decided to leave AMA. Mr. Stevens has decided to sign out against medical advice (AMA), after being explained the risks & benefits of leaving before medical clearance/discharge. The patient had the opportunity to ask questions about their condition which were answered to their satisfaction; counseled on cessation of alcohol. The patient is aware that they may return for further care at any time as needed and was recommended to come to the ER if their symptoms worsen. Dr. Johnson, PGY-2 Planned Discharge Date 12/28/24 DS: Providers Provider Date of admission: 12/26/24 11:55 Primary care physician: Physician No Primary/Family Admitting Provider: Haley Celaya DO Attending Provider on Admission: Haley Celaya DO Consults: 12/26/24 18:06 Referral Smoking Cessation Counseling Routine Comment: Smoking Cessation Education Needed Health Equity Referral - Nutrition Routine Comment: Positive screening for nutrition needs. Health Equity Referral - Safety Routine Comment: Positive screening for safety needs. Health Equity Referral - Transportation Routine Comment: Positive screening for transportation needs. Health Equity Referral - Utilities Routine Comment: Positive screening for utility assistance needs. 12/27/24 10:44 Referral Physical Therapy Routine Comment: Physician Instructions: Attending Provider on DC: Amanda Barnes MD Discharging Provider: Amanda Barnes MD DS: Diagnosis Problem List Completed Was Problem List Reviewed/Reconciled?: Yes Hospital Course Hospital Course Hospital course: Mr. Whitfield is a 34 y/o male with PMH EtOH use disorder c/b withdrawal seizures, T2DM who presented to the ED on 11/25 with generalized weakness, sternal chest pain that does not radiate, visual hallucinations, and nausea x 1 day. Last drink 12/25. Has been drinking fifth of Caleb daily 9 days. EtOH 313.1, UDS positive THC. Admitted for alcohol withdrawal. Patient was managed with PRN Ativan PO and midazolam IV based on CIWA scoring and q8h Librium. CT a/p was completed for elevated total bilirubin, showing hepatomegaly with diffuse fatty infiltration, nonobstructing left renal calculus, soft calcification 4 mm anterior right kidney, no hydronephrosis or ureteral calculi. Lactic acid resolved with IV fluids. A1C was 8.1, managed with sliding scale insulin with Lispro. Patient to continue on home metformin 500 mg BID with outpatient f/u with PCP. Due to unknown cardiac history with c/f MN vs cardiac arrest, TTE was performed: 55-60%, normal diastolic functiom; concentric remodeling noted; mild aortic valve sclerosis. Patient has been maintained on Librium 50 mg q8h with PRN ativan PO and midazolam IV. Patient was informed that he needed to stay one more night given that he was continuing to need the PRN benzos. Patient left against medical advice 12/28/2024. Diagnoses: # Alcohol withdrawal # Polysubstance use disorder (EtOH, tobacco, THC) # Hx delirium tremens # Transaminitis - improving # Elevated total bilirubin - uptrending #Elevated indirect bilirubin # Elevated lactic acid - resolved # Type 2 diabetes mellitus Time Spent with Patient Time attestation: Total time spent providing and/or coordinating discharge services: Time spent: Greater than 30 minutes Exam Vital Signs Temp Pulse Resp BP Pulse Ox O2 Del Method 97.0 F 65 17 117/76 99 Room Air 12/28/24 12:00 12/28/24 12:00 12/28/24 12:00 12/28/24 12:00 12/28/24 12:00 12/28/24 12:00 Narrative Exam General: No acute distress, lying in bed with lights off Eye: PERRL, EOMI, normal conjunctiva, no scleral icterus HENT: Normocephalic, atraumatic, normal hearing, dry oral mucosa Neck: Supple, non-tender, no JVD, no lymphadenopathy Lungs: Clear to auscultation bilaterally, non-labored respirations, symmetric chest rise, no use of accessory muscles Heart: Normal S1 and S2, no S3 or S4 appreciated. Normal rate and regular rhyt hm, no murmurs, rubs gallops, or edema. Peripheral pulses intact bilaterally, capillary refill brisk distally Abdomen: Soft, nontender, non-distended, normal bowel sounds. No guarding or rebound tenderness. Musculoskeletal: Normal range of motion and strength, no tenderness or swelling Skin: Skin is warm, dry, no rashes or lesions. Tattoos appreciated. Neurologic: Alert, awake and oriented x3. CN II-XII grossly intact. No focal neuro deficits. No signs of meningeal irritation noted. Psychiatric: Cooperative, appropriate mood and affect. Does not appear to be responding to internal stimuli, tight associations, blunted affect Discharge Plan Plan Patient Disposition: Left Against Medical Advice Disposition Comment: pt left MD MICAH spoke with patient and exllained risks to [facility] Patient condition on transfer: Stable Prescriptions/Referrals Prescriptions/Med Rec: No Action tramadol 50 mg tablet 50 mg PO Q6H PRN (Reason: pain) Qty: 28 0RF acetaminophen [Acetaminophen Extra Strength] 500 mg tablet 1,000 mg PO Q6H MDD 1000mg PRN (Reason: pain) Qty: 90 0RF tramadol 50 mg tablet 50 mg PO Q6H PRN (Reason: pain) Qty: 28 0RF hydrocodone-acetaminophen 5-325 mg tablet 1 tab PO BID MDD 10 PRN (Reason: pain) Qty: 10 0RF ibuprofen 600 mg tablet 600 mg PO Q6H Qty: 30 0RF gabapentin 300 mg capsule 300 mg PO HS Patient Comments: TAKE 1 CAPSULE BY MOUTH EVERY DAY AT BEDTIME sennosides-docusate sodium [Senna-S] 8.6-50 mg tablet 1 tab-cap PO QDAY Qty: 30 0RF aspirin 81 mg tablet,delayed release (DR/EC) 81 mg PO BID Qty: 60 0RF acetaminophen [Acetaminophen Extra Strength] 500 mg tablet 1,000 mg PO Q6H MDD 1000mg PRN (Reason: pain) Qty: 90 0RF gabapentin 300 mg capsule 300 mg PO .qhs Qty: 30 0RF doxycycline hyclate 100 mg tablet 100 mg PO BID Qty: 14 0RF oxycodone 5 mg tablet 5 mg PO Q6H MDD 40 PRN (Reason: pain) Qty: 28 0RF tramadol 50 mg tablet 50 mg PO Q8H PRN (Reason: pain) Qty: 28 0RF acetaminophen [Acetaminophen Extra Strength] 500 mg tablet 1,000 mg PO Q6H MDD 1000mg PRN (Reason: pain) Qty: 90 0RF Referrals: No Primary/Family,Physician [Primary Care Provider] Patient/Caregiver Discharge Instructions Print Language: Danish Quality Discharge Quality Measures VTE prophylaxis
--- NOTE | 2024-12-28 13:40 | PC.PT ---
PT eval only. Patient is xI with bed mobility, transfers, and ambulation. Patient is safe to ambulate to the bathroom and in the halls with no staff. RN made aware.
== END 2024-12-28 12:52 | disposition left against medical advice (07) | DRG 770 ==
LOC: SERX 12:02 → SERHOLD 12:32 → S2SX 12-27 07:08 → S2NX 12-27 16:39
PROVIDERS: Admitting Provider Internal Medicine; Emergency Provider Emergency Medicine; Visit Provider Internal Medicine
DX: F10.139 Alcohol abuse with withdrawal, unspecified (principal); E11.9 Type 2 diabetes mellitus without complications; Y90.8 Blood alcohol level of 240 mg/100 ml or more; F17.200 Nicotine dependence, unspecified, uncomplicated; F19.10 Other psychoactive substance abuse, uncomplicated; I25.2 Old myocardial infarction; E87.20 Acidosis, unspecified; G40.509 Epileptic seizures related to external causes, not intractable, without status epilepticus; K70.10 Alcoholic hepatitis without ascites; E86.0 Dehydration; I35.8 Other nonrheumatic aortic valve disorders; N20.0 Calculus of kidney; Z79.84 Long term (current) use of oral hypoglycemic drugs; Z53.29 Procedure and treatment not carried out because of patient's decision for other reasons; Z74.01 Bed confinement status
CPT/HCPCS: 36415; 70450; 71045; 74176; 76705; 80053; 80061; 80307; 80320; 80329; 81001; 82010; 82140; 82150; 82248; 82550; 82803; 83036; 83605; 83690; 83735; 83880; 84100; 84443; 84484; 85025; 85610; 85730; 93005; 93225; 93306; 96361; 96365; 96366; 96372; 96375; 96376; 97161; 99284; J1644; J1815; J2060; J2250; J2405; J2470; J3411; J3475; J3490; J7030; J7120; A9270; G0480

== ENCOUNTER 2025-01-09 04:52 | Inpatient (IN) | payer MEDICAID, SELFPAY ==
[2025-01-09] VITALS (8 sets, daily range): BP systolic 109–140; BP diastolic 66–98; PULSE 71–113; RESP 12–20; TEMP 36.1–37; O2SAT 95–99; BMI 15.8
--- NOTE | 2025-01-09 04:57 | PD.EDRME ---
Rapid Medical Screening Exam [facility] Arrival date/time: 01/09/25 04:52 RME Narrative: 34-year-old male who has awoken from sleep this morning with left lower quadrant abdominal pain with vomiting and diarrhea. No hematemesis or hematochezia. Exam: Flat abdomen with minimal tenderness to the left lower quadrant. Rather benign exam. Clinical Impression: Abdominal pain
--- NOTE | 2025-01-09 04:59 | XR_ITS ---
Examination: CT abdomen with intravenous contrast CT pelvis with intravenous contrast 2-D coronal reconstructions 2-D sagittal reconstructions Date and time of exam: January 09, 2025, 0631 hours, comparison December 26, 2024 INDICATIONS: Abdominal pain today post alcohol withdrawal this week., History kidney stones CTDI: vol (mGy) 4.16 DLP: (mGycm) 227 Technique: Multiple axial sections of the abdomen and pelvis have been obtained. 64 slice high-resolution scanner used. 3 mm axial sections have been obtained, post intravenous injection 60 cc [id number] 2-D sagittal, coronal reconstructions obtained. Low dose protocols were performed. One or more of the following dose reduction techniques were used; automated exposure control, adjustment of the mA and/or KV according to patient size, use of iterative reconstruction technique. Findings: Hepatomegaly 18 cm with diffuse fatty infiltration throughout the liver Spleen is not enlarged No gallstones No pancreatic or adrenal mass. No renal or ureteral calculi, no hydronephrosis Aorta normal size No bowel obstruction No diverticulitis Detail in the pelvis is reduced secondary to hip arthroplasties Urinary bladder grossly intact No pericecal inflammatory change Osseous structures intact IMPRESSION: Hepatomegaly, 18 cm with diffuse fatty infiltration throughout the liver No gallstones identified No renal or ureteral calculi No bowel obstruction or diverticulitis
[2025-01-09 05:18] LABS: Basophils # (Auto) 0.1 Thou/mm3 (0.0-0.2); Basophils % (Auto) 0 % (0-2.5); Eosinophils # (Auto) 0.0 Thou/mm3 (0.0-0.5); Eosinophils % (Auto) 0 % (0-10); Hematocrit 47.6 % (41.0-53.0); Hemoglobin 16.6 g/dL (13.5-16.0); Immature Granulocytes Auto 0.04 Thou/mm3 (0.00-0.00); Lymphocytes # (Auto) 1.0 Thou/mm3 (1.0-4.8); Lymphocytes % (Auto) 7 % (10-50); Mean Corpuscular HGB Conc 34.9 g/dl (31.0-37.0); Mean Corpuscular Hemoglobin 30.7 pg (25.0-35.0); Mean Corpuscular Volume 88 fL (80-100); Monocytes # (Auto) 0.8 Thou/mm3 (0.0-0.8); Monocytes % (Auto) 5 % (0-12); Neutrophils # (Auto) 12.4 Thou/mm3 (1.8-7.7); Neutrophils % (Auto) 87 % (37-80); Nucleated Red Blood Cell # 0.00 Thou/mm3 (0.00-0.00); Nucleated Red Blood Cell % 0 /100 WBC (0); Platelet Count 332 Thou/mm3 (140-440); RDW Standard Deviation 41.7 fL (35.1-43.9); Red Blood Count 5.41 Miln/mm3 (4.50-5.90); White Blood Count 14.3 Thou/mm3 (3.8-10.6)
[2025-01-09 05:41] LABS: Alanine Aminotransferase 192 U/L (10-49); Albumin, Serum 5.3 gm/dL (3.5-5.0); Albumin/Globulin Ratio 3.3 (1.2-2.2); Alkaline Phosphatase 106 U/L (46-116); Anion Gap 18 (7-16); Aspartate Amino Transferase 100 U/L (0-34); BUN/Creatinine Ratio 8 Ratio (12-20); Bilirubin,Total 1.1 mg/dL (0.3-1.2); Blood Urea Nitrogen 6 mg/dL (9-23); Calcium 8.9 mg/dL (8.3-10.6); Calcium (Corrected) 8.9 mg/dL (8.5-10.1); Carbon Dioxide 25.6 mMol/L (20.0-31.0); Chloride 97 mMol/L (98-107); Creatinine (Component) 0.8 mg/dL (0.6-1.3); Estimated Creatinine Clearance 100.2 mL/min (>60); Globulin 1.6 gm/dL (2.3-3.5); Osmolality,Calculated 296 (275-295); Potassium 4.2 mMol/L (3.4-5.1); Sodium 141 mMol/L (136-145); Total Protein 6.9 gm/dL (5.7-8.2); eGFR > 60 See Note
[2025-01-09 05:53] LABS: Glucose 430 mg/dL (74-106)
--- NOTE | 2025-01-09 06:01 | XR_ITS ---
EXAMINATION: AP chest single view TECHNIQUE: AP portable upright chest single view Date and time: January 09, 2025, 0601 hours, comparison December 26, 2024 INDICATION: Shortness of breath today. FINDINGS: Mild hyperexpansion. Normal heart size Lungs are clear. Mild osteopenia IMPRESSION: Mild hyperexpansion
--- NOTE | 2025-01-09 06:01 | XR_ITS ---
Examination: Abdomen sonogram, Limited Date and time of exam: January 09, 2025, 0909 hours INDICATIONS: Abdominal pain 3 days, alcohol withdrawal Technique: Real-time juan scale transabdominal sonographic images of the upper abdomen obtained. Findings: Normal gallbladder Normal common bile duct 0.4 cm Pancreatic head 2.0 cm Liver 17.8 cm fatty infiltration no focal liver lesions Normal hepatopetal portal venous flow Patent IVC IMPRESSION: Normal gallbladder Moderate hepatomegaly fatty infiltration
[2025-01-09] MEDS: THIAMINE INJ 100 MG/ML VIAL 2 ML IVP (06:18)
[2025-01-09] MEDS: ONDANSETRON INJ 2 MG/ML INJ 2 ML 4 MG IVP (06:19)
[2025-01-09] MEDS: SODIUM CHLORIDE 0.9% 1000 ML 1,000 ML 999 ML IV (06:19)
[2025-01-09] MEDS: LORazepam 2 MG/ML VIAL IVP (06:19)
[2025-01-09] MEDS: FAMOTIDINE INJ 10 MG/ML VIAL 2 ML 20 MG IVP (06:20)
[2025-01-09] MEDS: INSULIN HUM REGULAR 1 UNIT/0.01 ML (PER UNIT) 6 UNIT IV (06:20)
[2025-01-09 06:28] LABS: Base Excess, Venous 2 (-3-3); O2 Saturation, Venous 90 % (96-97); PCO2, Venous 37 mmHg (36-56); PO2, Venous 50 mmHg (15-58); pH, Venous 7.46 (7.33-7.66)
[2025-01-09 06:34] LABS: Beta Hydroxybutyrate 1.2 mmol/L (<0.6)
[2025-01-09 06:43] LABS: Collection Type, Urine Voided; Squamous Epithelial Cell,Urine 0 /hpf (0-5)
[2025-01-09 06:50] LABS: B-Type Natriuretic Peptide < 20 pg/mL (0-100)
[2025-01-09 06:54] LABS: Alcohol, Blood Medical 265.9 mg/dL (0-10.0); Amylase 29 U/L (30-118); Bilirubin,Direct 0.4 mg/dL (0.0-0.3); Creatine Kinase 112 U/L (34-171); Lipase 24 U/L (12-53); Magnesium 2.1 mg/dL (1.6-2.6); Thyroid Stimulating Hormone 0.87 uIU/mL (0.55-4.78); Troponin I < 0.020 ng/mL (0.0-0.045)
[2025-01-09 06:56] LABS: Bilirubin,Urine Negative (Negative); Blood,Urine 1+ (Negative); Clarity,Urine Clear (Clear/Hazy); Color,Urine Lt-Yellow (Lt Yel-Yel); Glucose, Urine 4+ (Negative); Ketones,Urine 1+ (Negative); Leukocyte Esterase,Urine Negative (Negative); Nitrite,Urine Negative (Negative); PH,Urine 6.5 (5.0-7.0); Protein,Urine 1+ (Neg - Trace); RBC,Urine 2 /hpf (0-3); Specific Gravity,Urine 1.036 (1.001-1.035); Urobilinogen,Urine Negative mg/dL (0.0-1.0); WBC,Urine < 1 /hpf (0-5)
[2025-01-09 07:02] LABS: Amphetamine/Methamp Scrn,U Negative (Negative); Barbiturate Screen,Urine Negative (Negative); Benzodiazepines Screen,Urine Negative (Negative); Benzoylecgonine Screen, Ur Negative (Negative); Fentanyl Screen,Urine Negative (Negative); Opiate Screen,Urine Negative (Negative); THC Screen,Urine Negative (Negative)
[2025-01-09 07:08] LABS: Glucose Estimated Average 180 mg/dL (80-131); Hemoglobin A1C 7.9 % Hgb (4.8-6.0)
--- NOTE | 2025-01-09 07:10 | PD.EDALCOH ---
ED Alcohol RME/HPI General Chief Complaint: Abdominal Pain Stated Complaint: ABD PAIN Time Seen by Provider: 01/09/25 05:57 Arrival date/time: 01/09/25 04:52 RME / HPI RME / HPI narrative: 34-year-old male who has awoken from sleep this morning with left lower quadrant abdominal pain with vomiting and diarrhea. No hematemesis or hematochezia. See [facility] for Dr. Martinez's HPI documentation. Exam: Flat abdomen with minimal tenderness to the left lower quadrant. Rather benign exam. Impression: Abdominal pain Related Data Home Medications ?Medication ?Instructions ?Recorded ?Confirmed gabapentin 300 mg capsule 300 mg PO HS 08/27/23 01/09/25 metformin 500 mg tablet 500 mg PO BID 01/09/25 01/09/25 Previous Rx's ?Medication ?Instructions ?Recorded acetaminophen 500 mg tablet 1,000 mg (2 x 500 mg) PO Q6H PRN 08/30/23 (Acetaminophen Extra Strength) pain #90 tabs aspirin 81 mg tablet,delayed 81 mg PO BID #60 tabs 08/30/23 release doxycycline hyclate 100 mg tablet 100 mg PO BID #14 tabs 08/30/23 gabapentin 300 mg capsule 300 mg PO .qhs #30 caps 08/30/23 oxycodone 5 mg tablet 5 mg PO Q6H PRN pain #28 tabs 08/30/23 sennosides 8.6 mg-docusate sodium 1 tab-cap PO QDAY #30 tabs 08/30/23 50 mg tablet (Senna-S) tramadol 50 mg tablet 50 mg PO Q6H PRN pain #28 tabs 09/14/23 tramadol 50 mg tablet 50 mg PO Q8H PRN pain #28 tabs 09/14/23 acetaminophen 500 mg tablet 1,000 mg (2 x 500 mg) PO Q6H PRN 09/27/23 (Acetaminophen Extra Strength) pain #90 tabs acetaminophen 500 mg tablet 1,000 mg (2 x 500 mg) PO Q6H PRN 10/22/23 (Acetaminophen Extra Strength) pain #90 tabs tramadol 50 mg tablet 50 mg PO Q6H PRN pain #28 tabs 10/22/23 hydrocodone 5 mg-acetaminophen 325 1 tab PO BID PRN pain #10 tabs 02/23/24 mg tablet ibuprofen 600 mg tablet 600 mg PO Q6H #30 tabs 02/23/24 Allergies Allergy/AdvReac Type Severity Reaction Status Date / Time No Known Allergies Allergy Verified 02/23/24 14:54 Review of Systems Review of Systems Systems Reviewed: All systems reviewed, normal except as documented Past Medical History Past Medical History MUSCULOSKELETAL: Positive Musculoskeletal Disorders ENDOCRINE: Positive Endocrine Disorders and Diabetes Mellitus Type 2 OTHER HISTORY: Positive Hospitalization Social History SMOKING STATUS: Current some day smoker SECOND HAND EXPOSURE: Yes ED Exam Narrative Physical exam: See [facility] for Dr. Martinez's physical exam documentation. Course Quality Measures none Orders Category Date Time Status CT Screening NOW Care 01/09/25 04:59 Completed EKG (ED ONLY) *Do not use* NOW Care 01/09/25 06:01 Completed Miscellaneous Nursing Order NOW Care 01/09/25 06:00 Completed Saline [Insert IV] NOW Care 01/09/25 05:59 Completed Straight [In and Out Catheter] X1 Care 01/09/25 05:[address] abdomen pelvis w con Stat Exams 01/09/25 04:59 Completed EKG (ED Only) Stat Exams 01/09/25 06:01 Ordered US abdomen limited Stat Exams 01/09/25 06:01 Completed XR chest 1V portable Stat Exams 01/09/25 06:01 Completed Alcohol, Blood Medical Stat Lab 01/09/25 06:12 Completed Amylase Stat Lab 01/09/25 06:12 Completed BNP [B-Type Natriuretic Peptide] Stat Lab 01/09/25 06:12 Completed Beta Hydroxybutyrate Stat Lab 01/09/25 06:12 Completed Bilirubin,Direct Stat Lab 01/09/25 06:12 Completed CBC Stat Lab 01/09/25 05:05 Completed CK [Creatine Kinase] Stat Lab 01/09/25 06:12 Completed CMP [Comprehensive Metabolic Panel] Stat Lab 01/09/25 05:05 Completed Drug Screen,Urine Stat Lab 01/09/25 06:04 Completed Hemoglobin A1C [Glycohemoglobin w (eAG)] Stat Lab 01/09/25 06:12 Completed Lipase Stat Lab 01/09/25 06:12 Completed Magnesium Stat Lab 01/09/25 06:12 Completed PT [Prothrombin Time with INR] Stat Lab 01/09/25 06:12 Completed PTT [Partial Thromboplastin Time] Stat Lab 01/09/25 06:12 Completed TSH [Thyroid Stimulating Hormone] Stat Lab 01/09/25 06:12 Completed Troponin I Stat Lab 01/09/25 06:12 Completed UA [Urinalysis] Stat Lab 01/09/25 06:04 Completed VBG [Venous Blood Gas] Stat Lab 01/09/25 06:12 Completed Famotidine Inj [Pepcid Inj] Med 01/09/25 05:59 Discontinued 20 mg IVP X1 ONE Insulin Regular Med 01/09/25 06:01 Discontinued 6 unit IV X1 ONE LORazepam [Ativan Inj] Med 01/09/25 05:59 Discontinued 2 mg IVP X1 ONE Ondansetron Inj [Zofran Inj] Med 01/09/25 05:59 Discontinued 4 mg IVP X1 ONE Pantoprazole Inj [Protonix Inj] Med 01/09/25 05:59 Discontinued 40 mg IVP X1 ONE Sodium Chloride 0.9% 1000 ml [Ns] 1,000 ml Med 01/09/25 05:59 Discontinued IV 999 mls/hr Thiamine Inj [Vitamin B-1 Inj] Med 01/09/25 05:59 Discontinued 100 mg IVP X1 ONE Vital Signs Vital signs: Vital Signs Temperature 98.1 F 01/09/25 05:20 Pulse Rate 104 H 01/09/25 05:20 Respiratory Rate 19 01/09/25 05:20 Blood Pressure 135/93 H 01/09/25 05:20 Pulse Oximetry (%) 97 01/09/25 05:20 Oxygen Delivery Method Room Air 01/09/25 05:20 Pulse ox is 97% on room air which is adequate. Critical Care Time Critical Care Time Critical Care Time: Yes Total Critical Care Time (min.): 36 Attestation: Due to a high probability of clinically significant, life threatening deterioration, the patient required my highest level of preparedness to intervene emergently and I personally spent this critical care time directly and personally managing the patient. This critical care time included obtaining a history; examining the patient; ordering and review of studies; arranging urgent treatment with development of a management plan; evaluation of patient's response to treatment; frequent reassessment; and discussions with family and other providers. It was exclusive of separately billable procedures and treating other patients and teaching time. Sandro Martinez MD Discharge Plan Plan Patient Disposition: Admit Acute Care w/in Hospital Discharge Disposition comment: [id number] Problem List Clinical Impression: Alcohol withdrawal Alcohol MDM Narrative MDM Narrative: This section includes all my notes and documentations, including HPI, PE, and ED course. Sandro Martinez MD HPI: 34-year-old male here concerned about possible alcohol withdrawal. Has history of withdrawal with seizures. Has been drinking heavily daily for years. Has been trying to cut down in the past few days. Since, he reports abdominal pain, vomiting, and shaking. No other complaints. ROS: All negative except as documented in HPI. Physical Exam: General: Alert and oriented. Tremors noted. Eyes: Conjunctivae and lids clear. EOMI. PERRL. ENT: No nasal congestion. Neck: Supple. Heart: RRR. Lungs: No respiratory distress. Good air movement. No rhonchi, wheezing, rales. Abdomen: Soft with equivocal tenderness, difficult to localize. Normal bowel sounds. No distension. No rebound or guarding. Legs: No clubbing, cyanosis, edema. Skin: Warm and dry. Neuro: Alert and oriented X 3. Cranial Nerves II-XII grossly intact. No peripheral motor deficits. I reviewed all diagnostic test results: My interpretation of the chest x-ray is: NAD My review of the US abdomen report is: NAD. My review of the CTY abdomen/pelvis report is: NAD. Blood tests and urine tests is remarkable for WBC 14.3, glucose 430, lactic acid 4.0, AST 100, AST 192, beta-hydroxybutyrate 1.2. At this point, diagnoses include: Alcohol withdrawal Lactic acidosis Hyperglycemia. Treatment here included: IVF Zofran 4 mg IV Ativan 2 mg IV Thiamine 100 mg IV Famotidine 20 mg IV Protonix 40 mg IV Insulin 6 mg IV Some improvement noted. I discussed the case with our hospitalist. About the presentation and exam and diagnostics and treatments here. And need of further care in the hospital. Will accept the patient. Sandro Martinez MD Patient data External records reviewed:: [facility] previous records and EMS form Clinical information provided by:: patient, EMS and friend Social determinants that could affect healthcare access:: alcohol use Patient has the following chronic illnesses:: Alcohol use disorder, withdrawal seizures, diabetes How is presenting disease/condition affected by chronic disease/condition?: exacerbated by Evaluation data The following diagnostics were reviewed and interpreted by me:: lab results and radiology exam(s) Lab and/or radiology exams considered but not ordered:: None Interpretation Summary: I reviewed all diagnostic test results: My interpretation of the chest x-ray is: NAD My review of the US abdomen report is: NAD. My review of the CTY abdomen/pelvis report is: NAD. Blood tests and urine tests is remarkable for WBC 14.3, glucose 430, lactic acid 4.0, AST 100, AST 192, beta-hydroxybutyrate 1.2. Medications / Prescriptions Medications or Prescriptions considered but not ordered:: None Medication administrations:: Medication Administration History Discontinued Medications Acetaminophen (Acetaminophen 325 Mg Tablet) 650 mg PO Q6H PRN PRN Reason: Fever >100.4 and pain 1-3 Stop: 02/08/25 14:06 Hydrocodone Bitart/Acetaminophen (Hydrocodone/Apap 5/325 Tablet) 1 tab PO Q4HR PRN PRN Reason: PAIN SCALE 4-10(Mod-Sev Stop: 01/14/25 14:09 Chlordiazepoxide HCl (Chlordiazepoxide Hcl 25 Mg Capsule) 25 mg PO TID JOYA Stop: 01/14/25 08:14 Last Admin: 01/11/25 05:07 Dose: 25 mg Documented By: Admin: 01/10/25 21:39 Dose: 25 mg Documented By: [email or web address] Admin: 01/10/25 14:25 Dose: 25 mg Documented By: Admin: 01/10/25 05:20 Dose: 25 mg Documented By: Admin: 01/09/25 21:35 Dose: 25 mg Documented By: Admin: 01/09/25 14:11 Dose: 25 mg Documented By: Admin: 01/09/25 08:56 Dose: 25 mg Documented By: ELIUD Dextrose (Dextrose 50%-Water Inj 50 Ml Syringe) 25 ml IV Q15MIN PRN PRN Reason: BG 50-70 responsive npo pt Stop: 02/08/25 10:15 Dextrose (Dextrose 50%-Water Inj 50 Ml Syringe) 50 ml IV Q15MIN PRN PRN Reason: BG <50 OR BG <70 & pt unresponsive Stop: 02/08/25 10:15 Diazepam (Diazepam Inj 5 Mg/Ml Vial 2 Ml) 2.5 mg IVP Q2HR PRN PRN Reason: CIWA SCORE 8-13 Stop: 01/14/25 08:10 Last Admin: 01/11/25 05:16 Dose: 2.5 mg Documented By: Admin: 01/10/25 21:40 Dose: 2.5 mg Documented By: Admin: 01/10/25 16:22 Dose: 2.5 mg Documented By: Admin: 01/10/25 05:20 Dose: 2.5 mg Documented By: Admin: 01/09/25 14:11 Dose: 2.5 mg Documented By: Admin: 01/09/25 11:19 Dose: 2.5 mg Documented By: ELIUD Diazepam (Diazepam Inj 5 Mg/Ml Vial 2 Ml) 5 mg IVP Q2HR PRN PRN Reason: CIWA SCORE 14-19 Stop: 01/14/25 08:10 Last Admin: 01/09/25 21:35 Dose: 5 mg Documented By: Admin: 01/09/25 15:59 Dose: 5 mg Documented By: Admin: 01/09/25 08:55 Dose: 5 mg Documented By: ELIUD Diazepam (Diazepam Inj 5 Mg/Ml Vial 2 Ml) 10 mg IVP Q2HR PRN PRN Reason: CIWA SCORE 20-25 Stop: 01/14/25 08:10 Last Admin: 01/10/25 08:47 Dose: 10 mg Documented By: NO Enoxaparin Sodium (Enoxaparin Sod Inj 40 Mg/0.4 Ml Syringe) 40 mg SC QDAY JOYA Stop: 01/24/25 08:59 Last Admin: 01/11/25 08:39 Dose: Not Given Documented By: Non-Admin Reason: Patient Refused Admin: 01/10/25 08:48 Dose: 40 mg Documented By: NO Famotidine (Famotidine Inj 10 Mg/Ml Vial 2 Ml) 20 mg IVP X1 ONE Stop: 01/09/25 06:00 Last Admin: 01/09/25 06:20 Dose: 20 mg Documented By: MARY Folic Acid (Folic Acid 1 Mg Tablet) 1 mg PO BID JOYA Stop: 01/14/25 08:59 Last Admin: 01/11/25 08:39 Dose: Not Given Documented By: Non-Admin Reason: Patient Refused Admin: 01/10/25 21:39 Dose: 1 mg Documented By: Admin: 01/10/25 08:47 Dose: 1 mg Documented By: Admin: 01/09/25 21:35 Dose: 1 mg Documented By: Admin: 01/09/25 08:56 Dose: 1 mg Documented By: ELIUD Glucagon (Glucagon Inj 1 Mg Vial) 1 mg IM Q15MIN PRN PRN Reason: BG <70, and no IV access Sodium Chloride (Ns) 1,000 mls @ 999 mls/hr IV .Q1H1M ONE Stop: 01/09/25 06:59 Last Infusion: 01/09/25 08:10 Dose: Infused Documented By: Admin: 01/09/25 06:19 Dose: 999 mls/hr Documented By: MARY Lactated Ringer's (Lactated Ringers) 1,000 mls @ 999 mls/hr IV .Q1H1M ONE Stop: 01/09/25 11:03 Last Admin: 01/09/25 10:16 Dose: 999 mls/hr Documented By: ELIUD Lactated Ringer's (Lactated Ringers) 1,000 mls @ 75 mls/hr IV .[id number] JOYA Stop: 02/08/25 12:08 Last Admin: 01/10/25 05:24 Dose: 75 mls/hr Documented By: Infusion: 01/10/25 05:24 Dose: Infused Documented By: Admin: 01/09/25 16:04 Dose: 75 mls/hr Documented By: Infusion: 01/09/25 12:52 Dose: Infused Documented By: Admin: 01/09/25 12:32 Dose: 75 mls/hr Documented By: ELIUD Lactated Ringer's (Lactated Ringers) 1,000 mls @ 999 mls/hr IV .Q1H1M ONE Stop: 01/09/25 15:44 Last Admin: 01/09/25 14:56 Dose: 999 mls/hr Documented By: LILIBETH Magnesium Sulfate (Magnesium Sulfate Ivpb) 4 gm in 50 mls @ 12.5 mls/hr IV X1 ONE Stop: 01/09/25 20:21 Last Admin: 01/09/25 17:05 Dose: 12.5 mls/hr Documented By: LILIBETH Magnesium Sulfate (Magnesium Sulfate Ivpb) 4 gm in 50 mls @ 12.5 mls/hr IV X1 ONE Stop: 01/10/25 15:00 Last Admin: 01/10/25 11:37 Dose: 12.5 mls/hr Documented By: NO Insulin Degludec (Insulin Degludec 5 Unit/0.05 Ml (Per 5 Units)) 10 unit SC QDAY [facility] Stop: 02/09/25 08:59 Last Admin: 01/11/25 08:39 Dose: Not Given Documented By: Non-Admin Reason: Patient Refused Admin: 01/10/25 08:49 Dose: 10 unit Documented By: NO Co-signed By: CARITO Insulin Human Lispro (Insulin Lispro (Admelog) 1 Unit/0.01 Ml Unit) 0 unit SC Q6HR JOYA; Protocol Stop: 02/08/25 11:59 Last Admin: 01/09/25 11:16 Dose: Not Given Documented By: ELIUD Non-Admin Reason: Per Protocol Insulin Human Lispro (Insulin Lispro (Admelog) 1 Unit/0.01 Ml Unit) 0 unit SC ACHS [facility]; Protocol Stop: 02/08/25 16:59 Last Admin: 01/11/25 07:27 Dose: Not Given Documented By: Non-Admin Reason: Per Protocol Admin: 01/10/25 21:39 Dose: 5 unit Documented By: SOLANGE Co-signed By: CHERELLE Admin: 01/10/25 16:28 Dose: Not Given Documented By: NO Non-Admin Reason: Per Protocol Admin: 01/10/25 12:49 Dose: 4 unit Documented By: NO Co-signed By: CARITO Admin: 01/10/25 07:55 Dose: Not Given Documented By: NO Non-Admin Reason: Per Protocol Admin: 01/09/25 21:35 Dose: 5 unit Documented By: TAMMY Co-signed By: BRYAN Admin: 01/09/25 17:05 Dose: 4 unit Documented By: LILIBETH Co-signed By: SC Insulin Human Regular (Insulin Hum Regular 1 Unit/0.01 Ml (Per Unit)) 6 unit IV X1 ONE Stop: 01/09/25 06:02 Last Admin: 01/09/25 06:20 Dose: 6 unit Documented By: MARY Co-signed By: SIERRA Lorazepam (Lorazepam 2 Mg/Ml Vial) 2 mg IVP X1 ONE Stop: 01/09/25 06:00 Last Admin: 01/09/25 06:19 Dose: 2 mg Documented By: MARY Melatonin (Melatonin 3 Mg Tablet) 3 mg PO X1 ONE Stop: 01/10/25 18:24 Last Admin: 01/10/25 19:23 Dose: 3 mg Documented By: [email or web address] Nicotine (Nicotine Patch 21 Mg/24 Hr Patch.Td24) 21 mg TOP QDAY JOYA Stop: 02/08/25 15:14 Last Admin: 01/11/25 08:39 Dose: Not Given Documented By: Non-Admin Reason: Patient Refused Admin: 01/10/25 08:49 Dose: 21 mg Documented By: Admin: 01/09/25 15:59 Dose: 21 mg Documented By: LILIBETH Ondansetron HCl (Ondansetron Inj 2 Mg/Ml Inj 2 Ml) 4 mg IVP X1 ONE; Protocol Stop: 01/09/25 06:00 Last Admin: 01/09/25 06:19 Dose: 4 mg Documented By: MARY Ondansetron HCl (Ondansetron Inj 2 Mg/Ml Inj 2 Ml) 4 mg IVP Q6H PRN; Protocol PRN Reason: NAUSEA OR VOMITING Stop: 02/08/25 14:09 Pantoprazole Sodium (Pantoprazole Inj 40 Mg Vial) 40 mg IVP X1 ONE Stop: 01/09/25 06:00 Last Admin: 01/09/25 06:20 Dose: 40 mg Documented By: MARY Pantoprazole Sodium (Pantoprazole 40 Mg Tablet) 40 mg PO QDAY JOYA Stop: 02/09/25 08:59 Last Admin: 01/11/25 08:40 Dose: Not Given Documented By: Non-Admin Reason: Patient Refused Admin: 01/10/25 08:47 Dose: 40 mg Documented By: NO Sennosides (Senna Tablet) 1 tab PO QDAY PRN; Protocol PRN Reason: constipation Stop: 02/08/25 14:09 Thiamine HCl (Thiamine Inj 100 Mg/Ml Vial 2 Ml) 100 mg IVP X1 ONE Stop: 01/09/25 06:00 Last Admin: 01/09/25 06:18 Dose: 100 mg Documented By: MARY Thiamine HCl (Thiamine 100 Mg Tablet) 100 mg PO BID [facility] Stop: 01/14/25 08:59 Last Admin: 01/11/25 08:40 Dose: Not Given Documented By: Non-Admin Reason: Patient Refused Admin: 01/10/25 21:39 Dose: 100 mg Documented By: [email or web address] Admin: 01/10/25 08:47 Dose: 100 mg Documented By: Admin: 01/09/25 21:35 Dose: 100 mg Documented By: Admin: 01/09/25 08:56 Dose: 100 mg Documented By: ELIUD Treatment here FROM ME included: IVF Zofran 4 mg IV Ativan 2 mg IV Thiamine 100 mg IV Famotidine 20 mg IV Protonix 40 mg IV Insulin 6 mg IV Consultations Consultation(s) initiated? (list below): Yes Consultation #1 (Physician, Specialty, Details): I discussed the case with our hospitalist. About the presentation and exam and diagnostics and treatments here. And need of further care in the hospital. Will accept the patient. Time: 08:00 Diagnosis Differential diagnosis alcohol: alcohol withdrawal delirium, hypomagnesemia, alcohol intoxication, alcohol ketoacidosis, alcohol withdrawal syndrome and alcohol withdrawal seizure Most likely diagnosis given after review of the tests above:: Alcohol withdrawal Lactic acidosis Hyperglycemia. Admission Indicated Admission indicated?: indicated Explain why admission is indicated or not indicated:: Alcohol withdrawal Lactic acidosis Hyperglycemia. Admission Request Was there a request for admission?: Yes Admission Attestation Admission request attestation: Discussed case with Hospitalist service regarding admission. Discussed patients ED course, exam findings, labs, and radiology results. Agreeed to accept the patient for admission. Disposition Plan Disposition Plan: Admit
[2025-01-09 08:28] LABS: INR 0.9 (0.9-1.3); Partial Thromboplastin Time 25.9 Seconds (22.0-36.0); Prothrombin Time 9.5 Seconds (9.0-12.2)
[2025-01-09 08:41] LABS: Lactate (Lactic Acid) 5.1 mMol/L (0.4-2.0)
[2025-01-09] MEDS: DIAZEPAM INJ 5 MG/ML VIAL 2 ML IVP ×3 (08:55→21:35)
[2025-01-09] MEDS: FOLIC ACID 1 MG TABLET PO ×2 (08:56→21:35)
[2025-01-09] MEDS: THIAMINE 100 MG TABLET PO ×2 (08:56→21:35)
[2025-01-09] MEDS: RINGERS LACTATED 1000 ML 1,000 ML 999 ML IV ×2 (10:16→14:56)
[2025-01-09] MEDS: DIAZEPAM INJ 5 MG/ML VIAL 2 ML 2.5 MG IVP ×2 (11:19→14:11)
[2025-01-09 11:36] LABS: Reflex Lactate? Y
[2025-01-09 12:02] LABS: Lactic Acid, 3 HR 4.0 mMol/L (0.4-2.0)
[2025-01-09] MEDS: RINGERS LACTATED 1000 ML 1,000 ML 75 ML IV ×2 (12:32→16:04)
--- NOTE | 2025-01-09 14:19 | ESHP_ITS ---
<Statement entered by Silas Eng MD - 01/09/25 16:00> Patient seen and examined at bedside. I discussed and supervised with the restaurant management internship physician who took care of this patient. I personally saw and examined the patient. I agree with most of the assessment and plan. Patient with history of alcohol abuse, previous withdrawal with seizures, presented with abdominal pain, vomiting, tremors. Also found to have lactic acidosis, hyperglycemia. Given diazepam, insulin, IV fluid in ED. Admitted with [facility] protocol, started on diet and maintenance fluids. Monitor lactic acid. Sliding scale insulin. Plan of care discussed with attending Dr. Silas Eng MD PGY-2 Documentation for date of: 01/09/25 HPI History of Present Illness History of present illness: 34-year-old male with past medical history of type 2 diabetes, bilateral hip replacement, and alcohol use disorder history of alcoholic seizure 2019 presented with left lower quadrant abdominal pain with vomiting diarrhea.? Admitted for alcohol withdrawal.? Recent hospitalization and left AMA on 12/28 for diagnosis of alcohol withdrawal. Admission on 12/26 echo LVEF 55-60% mild CT head negative Doppler ultrasound negative. Patient reported left lower quadrant pain, sharp x 3 days with vomiting, clear fluid.? Woke up 2 AM this morning due to pain.? Reported history of black BM x 1 week.? No history of bleeding clotting.? Reported smoking cigarette 1 pack/day x 20 years.? Was in rehab for alcohol use in 2019 sober for 5 years until 9 days ago, drank 1 bottle of Caleb per day.? Last drink 2 days ago of 1 full bottle of Caleb. ED: Labs: WBC 14.3 Hgb 16.6 left shift platelet 332 glucose 430-180 A1c 7.9 direct bilirubin 0.4 total bili 1.1 AST 310?100 ALT 285?192 alk phos 71?106 Lactic acid 5.1-4.0 amylase, lipase unremarkable, beta-hydroxybutyrate/acetyl acetate 1.2 VBG 7.46/37/50 troponin negative BNP negative. Albumin 5.3 globulin 1.6 albumin/globulin ratio 3.3 UA positive glucose, ketone, blood. UTOX positive alcohol Imaging: CTAP hepatomegaly CXR mild hyperexpansion Abdomen US negative Meds: Insulin regular 6 unit Protonix 40 IV Pepcid 20 mg Zofran 4 mg lorazepam diazepam librium thiamine folate 2 L IVF LR 75 cc/h Review of Systems Review of Systems Systems Reviewed: All systems reviewed, normal except as documented Exam Vital Signs Temp Pulse Resp BP Pulse Ox O2 Del Method 97.8 F 90 18 124/96 H 99 Room Air 01/09/25 12:00 01/09/25 14:00 01/09/25 14:00 01/09/25 14:00 01/09/25 14:00 01/09/25 14:00 Narrative Exam General: No acute distress, malnourished, AAO x3 Eye: PERRL, EOMI, normal conjunctiva, no scleral icterus HENT: Normocephalic, atraumatic, hearing intact to conversation at normal volume, moist oral mucosa Neck: Supple, non-tender, no JVD, no lymphadenopathy Lungs: Non-labored respirations, symmetric chest rise, Clear to auscultate bilaterally, No wheezing, rhonchi, crackles Heart: Peripheral pulses intact bilaterally, Regular Rate and Rhythm. Abdomen: Soft, tender to palpation on LLQ, non-distended, no palpable masses Musculoskeletal: Intense tremor in bilaterally upper extremities, No cyanosis or edema, No visible joint swelling Skin: Skin is warm, dry, no rashes or lesions. Psychiatric: Cooperative, appropriate mood and affect, Awake and alert, not agitated Neuro: Cranial nerves II-XII grossly intact. Strength 5/5 throughout. Sensations intact to light touch. Results: Labs 01/09/25 05:05 01/09/25 05:05 Labs: Short CBC 01/09/25 Range/Units 05:05 WBC 14.3 H (3.8-10.6) Thou/mm3 Hgb 16.6 H (13.5-16.0) g/dL Hct 47.6 (41.0-53.0) % Plt Count 332 D (140-440) Thou/mm3 BMP 01/09/25 05:05 Sodium 141 Potassium 4.2 Chloride 97 L Carbon Dioxide 25.6 BUN 6 L Creatinine 0.8 Glucose 430 H* Calcium 8.9 Cardiac Enzymes 01/09/25 Range/Units 06:12 Total Creatine Kinase 112 D (34-171) U/L Troponin I < 0.020 (0.0-0.045) ng/mL Liver Function 01/09/25 01/09/25 Range/Units 05:05 06:12 Total Bilirubin 1.1 (0.3-1.2) mg/dL Direct Bilirubin 0.4 H (0.0-0.3) mg/dL AST 100 H (0-34) U/L ALT 192 H (10-49) U/L Alkaline Phosphatase 106 (46-116) U/L Albumin 5.3 H (3.5-5.0) gm/dL Urine 01/09/25 Range/Units 06:04 Urine Color Lt-Yellow (Lt Yel-Yel) Urine Clarity Clear (Clear/Hazy) Urine pH 6.5 (5.0-7.0) Ur Specific [place] 1.036 H (1.001-1.035) Urine Protein 1+ A (Neg - Trace) Urine Glucose (UA) 4+ A (Negative) ABG Interpretation ABG results: 01/09/25 06:12 VBG pH 7.46 VBG pCO2 37 VBG pO2 50 VBG Base Excess 2 Quality Measures Quality Measures VTE prophylaxis Medications Home Medications and Allergies Home Medications ?Medication ?Instructions ?Recorded ?Confirmed ?Type gabapentin 300 mg capsule 300 mg PO HS 08/27/23 History metformin 500 mg tablet 500 mg PO BID 01/09/2501/09 History Allergies Allergy/AdvReac Type Severity Reaction Status Date / Time No Known Allergies Allergy Verified 02/23/24 14:54 Visit Medications Acetaminophen (Acetaminophen 325 Mg Tablet) 650 mg PO Q6H PRN PRN Reason: Fever >100.4 and pain 1-3 Stop: 02/08/25 14:06 Hydrocodone Bitart/Acetaminophen (Hydrocodone/Apap 5/325 Tablet) 1 tab PO Q4HR PRN PRN Reason: PAIN SCALE 4-10(Mod-Sev Stop: 01/14/25 14:09 Chlordiazepoxide HCl (Chlordiazepoxide Hcl 25 Mg Capsule) 25 mg PO TID JOYA Stop: 01/14/25 08:14 Last Admin: 01/09/25 14:11 Dose: 25 mg Dextrose (Dextrose 50%-Water Inj 50 Ml Syringe) 25 ml IV Q15MIN PRN PRN Reason: BG 50-70 responsive npo pt Stop: 02/08/25 10:15 Dextrose (Dextrose 50%-Water Inj 50 Ml Syringe) 50 ml IV Q15MIN PRN PRN Reason: BG <50 OR BG <70 & pt unresponsive Stop: 02/08/25 10:15 Diazepam (Diazepam Inj 5 Mg/Ml Vial 2 Ml) 2.5 mg IVP Q2HR PRN PRN Reason: CIWA SCORE 8-13 Stop: 01/14/25 08:10 Last Admin: 01/09/25 14:11 Dose: 2.5 mg Diazepam (Diazepam Inj 5 Mg/Ml Vial 2 Ml) 5 mg IVP Q2HR PRN PRN Reason: CIWA SCORE 14-19 Stop: 01/14/25 08:10 Last Admin: 01/09/25 08:55 Dose: 5 mg Diazepam (Diazepam Inj 5 Mg/Ml Vial 2 Ml) 10 mg IVP Q2HR PRN PRN Reason: CIWA SCORE 20-25 Stop: 01/14/25 08:10 Enoxaparin Sodium (Enoxaparin Sod Inj 40 Mg/0.4 Ml Syringe) 40 mg SC QDAY [facility] Stop: 01/24/25 08:59 Folic Acid (Folic Acid 1 Mg Tablet) 1 mg PO BID [facility] Stop: 01/14/25 08:59 Last Admin: 01/09/25 08:56 Dose: 1 mg Glucagon (Glucagon Inj 1 Mg Vial) 1 mg IM Q15MIN PRN PRN Reason: BG <70, and no IV access Lactated Ringer's (Lactated Ringers) 1,000 mls @ 75 mls/hr IV .[id number] [facility] Stop: 02/08/25 12:08 Last Infusion: 01/09/25 12:52 Dose: Infused Insulin Human Lispro (Insulin Lispro (Admelog) 1 Unit/0.01 Ml Unit) 0 unit SC Q6HR [facility]; Protocol Stop: 02/08/25 11:59 Last Admin: 01/09/25 11:16 Dose: Not Given Ondansetron HCl (Ondansetron Inj 2 Mg/Ml Inj 2 Ml) 4 mg IVP Q6H PRN; Protocol PRN Reason: NAUSEA OR VOMITING Stop: 02/08/25 14:09 Sennosides (Senna Tablet) 1 tab PO QDAY PRN; Protocol PRN Reason: constipation Stop: 02/08/25 14:09 Thiamine HCl (Thiamine 100 Mg Tablet) 100 mg PO BID [facility] Stop: 01/14/25 08:59 Last Admin: 01/09/25 08:56 Dose: 100 mg Discontinued Medications Famotidine (Famotidine Inj 10 Mg/Ml Vial 2 Ml) 20 mg IVP X1 ONE Stop: 01/09/25 06:00 Last Admin: 01/09/25 06:20 Dose: 20 mg Sodium Chloride (Ns) 1,000 mls @ 999 mls/hr IV .Q1H1M ONE Stop: 01/09/25 06:59 Last Infusion: 01/09/25 08:10 Dose: Infused Lactated Ringer's (Lactated Ringers) 1,000 mls @ 999 mls/hr IV .Q1H1M ONE Stop: 01/09/25 11:03 Last Admin: 01/09/25 10:16 Dose: 999 mls/hr Insulin Human Regular (Insulin Hum Regular 1 Unit/0.01 Ml (Per Unit)) 6 unit IV X1 ONE Stop: 01/09/25 06:02 Last Admin: 01/09/25 06:20 Dose: 6 unit Lorazepam (Lorazepam 2 Mg/Ml Vial) 2 mg IVP X1 ONE Stop: 01/09/25 06:00 Last Admin: 01/09/25 06:19 Dose: 2 mg Ondansetron HCl (Ondansetron Inj 2 Mg/Ml Inj 2 Ml) 4 mg IVP X1 ONE; Protocol Stop: 01/09/25 06:00 Last Admin: 01/09/25 06:19 Dose: 4 mg Pantoprazole Sodium (Pantoprazole Inj 40 Mg Vial) 40 mg IVP X1 ONE Stop: 01/09/25 06:00 Last Admin: 01/09/25 06:20 Dose: 40 mg Thiamine HCl (Thiamine Inj 100 Mg/Ml Vial 2 Ml) 100 mg IVP X1 ONE Stop: 01/09/25 06:00 Last Admin: 01/09/25 06:18 Dose: 100 mg Assessment & Plan Plan #Alcohol Use Disorder #Alcohol Withdrawal #History of Withdrawal Seizures #Lactic acidosis 34-year-old male with past medical history type 2 diabetes on metformin 500 mg twice daily and alcohol use disorder with history of alcoholic seizure and multiple alcohol withdrawal admitted for alcohol withdrawal. UTOX positive alcohol 265.9.? Lactic acidosis 5.1 in the setting of metformin use with malnutrition, possible thiamine depletion. Plan: -CIWA protocol -Scheduled Librium PO 25mg TID -Thiamine 100mg bid -Folic acid 1mg bid -LR 75cc/hr -Monitor for breakthrough alcohol withdrawal symptoms (especially, seizures) -Seizure precautions -Aspiration precautions -Replete electrolytes as needed -Valium PRN per [facility] protocol #Starvation Ketosis vs Diabetic Ketoacidosis #Hyperglycemia #Type 2 Diabetes Blood glucose on admission was 430, improved to 180 after 6 units of insulin regular.? Beta hydroxy butyrate is mildly elevated 1.2, UA positive ketone, in setting of malnutrition from alcohol use disorder. HA1c 7.9 Plan: -Continue LR 75ml/hr IV1L. -Glucose check q6hr -SSI q4hr -Daily weight, Strict I&Os -Dietitian referral -Diet carb consistent diet Health Maintenance: Code status: Full DVT prophylaxis: Lovenox GI prophylaxis: Protonix Diet: Carb consistent [place]: None Lines: PIV Supplemental O2: None Disposition: Tele bed Assessment and plan discussed with my attending physician Dr. Ariza and Dr. Eng (PGY-2). Dr. Kurtz (PGY-1) ? residential gas heat technician Attending Provider Attestation/Addendum I have seen and examined the patient.? I was physically present for the marie portions of the services provided including history, physical exam, diagnosis, treatment plans and orders. I agree with assessment and plan of care as documented by residents. After examination of the patient and review of the clinical data I feel that this patient needs admission to the hospital for further treatment/evaluation. Patient is a 34 years old male with past medical history of diabetes mellitus, with alcohol abuse with withdrawal seizures who presented to the ED with complaint of left lower quadrant abdominal pain, vomiting and diarrhea.? Patient was recently hospitalized and left AMA on 12/28.? He was admitted for management of alcohol withdrawal at that time.? This time his symptoms started this morning around 2 AM, has been drinking 1 bottle of whiskey per day, last drink being 2 days back.? In the ED, patient's abdominal pain has improved significantly at the time of examination.? His WBC count was 14.3, hemoglobin 16.6, glucose 430, A1c 7.9, bilirubin 1.1, AST/ALT 310/285.? Lactic acid was 5.1 and beta- hydroxybutyrate 1.2.? Bicarbonate level was within normal limit but patient had anion gap of 18.? Patient had CIWA's score of 14 this morning, slowly going down after start of CIWA.? We will admit the patient for management of alcohol abuse, alcohol withdrawal, anion gap metabolic acidosis in setting of mild ketosis, lactic acidosis.? Patient takes metformin at home, lactic acidosis might be from combination of heavy alcohol abuse, metformin use, malnutrition.? Received IV fluid boluses, we will continue with gentle IV hydration.? Started on insulin regimen and CIWA protocol. Even though this this note was carefully revised there may still be minor errors in street openings inspector due to voice recognition software. Ileana Ariza MD
--- NOTE | 2025-01-09 14:19 | PC.NURSE ---
Handoff report given to Azul HUBER from Tele. Pt aware of transfer to tele floor for continued observation. PT shows no s/s of distress. Denies any pain at this time.
[2025-01-09 15:12] LABS: Base Excess, Venous 6 (-3-3); Lactate (Lactic Acid) 3.0 mMol/L (0.4-2.0); O2 Saturation, Venous 69 % (96-97); PCO2, Venous 38 mmHg (36-56); PO2, Venous 37 mmHg (15-58); pH, Venous 7.49 (7.33-7.66)
[2025-01-09 15:33] LABS: Albumin, Serum 4.2 gm/dL (3.5-5.0); Anion Gap 11 (7-16); BUN/Creatinine Ratio 10 Ratio (12-20); Blood Urea Nitrogen 6 mg/dL (9-23); Calcium 8.5 mg/dL (8.3-10.6); Calcium (Corrected) 8.5 mg/dL (8.5-10.1); Carbon Dioxide 28.4 mMol/L (20.0-31.0); Chloride 101 mMol/L (98-107); Creatinine (Component) 0.6 mg/dL (0.6-1.3); Estimated Creatinine Clearance 140.8 mL/min (>60); Glucose 133 mg/dL (74-106); Magnesium 1.5 mg/dL (1.6-2.6); Osmolality,Calculated 279 (275-295); Phosphorous 2.7 mg/dL (2.4-5.1); Potassium 3.8 mMol/L (3.4-5.1); Sodium 140 mMol/L (136-145); eGFR > 60 See Note
[2025-01-09] MEDS: NICOTINE PATCH 21 MG/24 HR PATCH.TD24 TOP (15:59)
[2025-01-09] MEDS: Magnesium Sulfate 4 GM Ivpb 4 GM/50 ML BAG IV (17:05)
[2025-01-09] MEDS: INSULIN LISPRO (AdmeLOG) 1 UNIT/0.01 ML UNIT SC ×2 (17:05→21:35)
[2025-01-09 17:56] LABS: Lactate (Lactic Acid) 1.7 mMol/L (0.4-2.0)
[2025-01-09 18:10] LABS: Reflex Lactate? Y
[2025-01-10] VITALS: BP 118/76; PULSE 77; RESP 15; TEMP 36.3; O2SAT 99
[2025-01-10 04:00] VITALS: BP 123/81; PULSE 60; PULSE 61; RESP 17; TEMP 36.1; O2SAT 99
[2025-01-10 05:03] VITALS: BMI 18.1
[2025-01-10] MEDS: DIAZEPAM INJ 5 MG/ML VIAL 2 ML 2.5 MG IVP ×3 (05:20→21:40)
[2025-01-10] MEDS: RINGERS LACTATED 1000 ML 1,000 ML 75 ML IV (05:24)
[2025-01-10 06:46] LABS: Basophils # (Auto) 0.0 Thou/mm3 (0.0-0.2); Basophils % (Auto) 0 % (0-2.5); Eosinophils # (Auto) 0.1 Thou/mm3 (0.0-0.5); Eosinophils % (Auto) 1 % (0-10); Hematocrit 35.9 % (41.0-53.0); Hemoglobin 12.2 g/dL (13.5-16.0); Immature Granulocytes Auto 0.02 Thou/mm3 (0.00-0.00); Lymphocytes # (Auto) 1.4 Thou/mm3 (1.0-4.8); Lymphocytes % (Auto) 21 % (10-50); Mean Corpuscular HGB Conc 34.0 g/dl (31.0-37.0); Mean Corpuscular Hemoglobin 29.9 pg (25.0-35.0); Mean Corpuscular Volume 88 fL (80-100); Monocytes # (Auto) 0.3 Thou/mm3 (0.0-0.8); Monocytes % (Auto) 5 % (0-12); Neutrophils # (Auto) 4.9 Thou/mm3 (1.8-7.7); Neutrophils % (Auto) 73 % (37-80); Nucleated Red Blood Cell # 0.00 Thou/mm3 (0.00-0.00); Nucleated Red Blood Cell % 0 /100 WBC (0); Platelet Count 196 Thou/mm3 (140-440); RDW Standard Deviation 41.7 fL (35.1-43.9); Red Blood Count 4.08 Miln/mm3 (4.50-5.90); White Blood Count 6.7 Thou/mm3 (3.8-10.6)
[2025-01-10 07:12] LABS: Alanine Aminotransferase 116 U/L (10-49); Albumin, Serum 3.6 gm/dL (3.5-5.0); Albumin/Globulin Ratio 2.8 (1.2-2.2); Alkaline Phosphatase 72 U/L (46-116); Anion Gap 9 (7-16); Aspartate Amino Transferase 90 U/L (0-34); BUN/Creatinine Ratio 20 Ratio (12-20); Bilirubin,Total 1.4 mg/dL (0.3-1.2); Blood Urea Nitrogen 10 mg/dL (9-23); Calcium 8.2 mg/dL (8.3-10.6); Calcium (Corrected) 8.5 mg/dL (8.5-10.1); Carbon Dioxide 28.7 mMol/L (20.0-31.0); Cardiac Risk Estimate 2.1 RATIO (4.0-6.7); Chloride 99 mMol/L (98-107); Cholesterol 145 mg/dL (132-200); Creatinine (Component) 0.5 mg/dL (0.6-1.3); Estimated Creatinine Clearance 183.2 mL/min (>60); Globulin 1.3 gm/dL (2.3-3.5); Glucose 165 mg/dL (74-106); HDL Cholesterol 68 mg/dL (40-60); LDL Cholesterol,Calculated 69 mg/dL (0-130); Magnesium 1.7 mg/dL (1.6-2.6); Osmolality,Calculated 276 (275-295); Phosphorous 2.4 mg/dL (2.4-5.1); Potassium 4.0 mMol/L (3.4-5.1); Sodium 137 mMol/L (136-145); Total Protein 4.9 gm/dL (5.7-8.2); Triglycerides 40 mg/dL (30-150); eGFR > 60 See Note
[2025-01-10 08:00] VITALS: BP 116/77; PULSE 95; PULSE 97; RESP 16; TEMP 36.1; O2SAT 96
[2025-01-10] MEDS: THIAMINE 100 MG TABLET PO ×2 (08:47→21:39)
[2025-01-10] MEDS: DIAZEPAM INJ 5 MG/ML VIAL 2 ML 10 MG IVP (08:47)
[2025-01-10] MEDS: FOLIC ACID 1 MG TABLET PO ×2 (08:47→21:39)
[2025-01-10] MEDS: PANTOPRAZOLE 40 MG TABLET PO (08:47)
[2025-01-10] MEDS: ENOXAPARIN SOD INJ 40 MG/0.4 ML SYRINGE SC (08:48)
[2025-01-10] MEDS: INSULIN DEGLUDEC 5 UNIT/0.05 ML (PER 5 UNITS) 10 UNIT SC (08:49)
[2025-01-10] MEDS: NICOTINE PATCH 21 MG/24 HR PATCH.TD24 TOP (08:49)
--- NOTE | 2025-01-10 09:14 | PC.SS ---
Follow up note: Continue to monitor. Pt is on [facility] Protocol.
--- NOTE | 2025-01-10 09:17 | ESPR_ITS ---
<Statement entered by Silas Eng MD - 01/11/25 14:48> Patient seen and examined at bedside. I discussed and supervised with the public health internship physician who took care of this patient. I personally saw and examined the patient. I agree with most of the assessment and plan. CIWA remains significantly elevated. Continue CIWA protocol and Librium, plan to titrate down when patient more stable. Plan of care discussed with attending Dr. Ariza. Silas Eng MD PGY-2 Documentation for date of: 01/10/25 Subjective Subjective Interval history: Last drink 3 days ago. CIWA highest 18, latest 9.? Overnight received Librium 25mg, diazepam 2.5mg and 5mg, Valium 25mg. CIWA 20 at bedside, improved to 9 after meds were given. Endorsed epigastric and LLQ pain upon palpitation, attributed to recent insulin shots. Tolerated meals with no N/V. Endorsed feeling of flies on skin, music inside his head, shaking hands bilaterally even after meds. Continue to monitor for withdrawal symptoms and adjust meds as needed. Exam Vital Signs Temp Pulse Resp BP Pulse Ox O2 Del Method 96.9 F 97 16 116/77 96 Room Air 01/10/25 08:00 01/10/25 08:00 01/10/25 08:00 01/10/25 08:00 01/10/25 08:00 01/10/25 08:00 Narrative Exam General: No acute distress, malnourished, AAO x3 Eye: PERRL, EOMI, normal conjunctiva, no scleral icterus HENT: Normocephalic, atraumatic, hearing intact to conversation at normal volume, moist oral mucosa Neck: Supple, non-tender, no JVD, no lymphadenopathy Lungs: Non-labored respirations, symmetric chest rise, Clear to auscultate bilaterally, No wheezing, rhonchi, crackles Heart: Peripheral pulses intact bilaterally, Regular Rate and Rhythm. Abdomen: Soft, tender to palpation on LLQ, non-distended, no palpable masses Musculoskeletal: Intense tremor in bilaterally upper extremities, No cyanosis or edema, No visible joint swelling Skin: Skin is warm, dry, no rashes or lesions. Psychiatric: Cooperative, appropriate mood and affect, Awake and alert, not agitated Neuro: Cranial nerves II-XII grossly intact. Strength 5/5 throughout. Sensations intact to light touch. Objective Labs 01/11/25 04:50 01/11/25 04:50 Labs: Laboratory Results - last 24 hr 01/09/25 01/09/25 01/09/25 11:50 15:05 17:40 WBC RBC Hgb Hct MCV MCH MCHC RDW Std Deviation Plt Count Neut % (Auto) Lymph % (Auto) [place] % (Auto) Eos % (Auto) Baso % (Auto) Neut # (Auto) Lymph # (Auto) [place] # (Auto) Eos # (Auto) Baso # (Auto) Immature Gran # (Auto) Absolute Nucleated RBC Immature Gran % Nucleated RBC % VBG pH 7.49 VBG pCO2 38 VBG pO2 37 VBG O2 Sat ([place]) 69 L D VBG Base Excess 6 H Sodium 140 Potassium 3.8 Chloride 101 Carbon Dioxide 28.4 Anion Gap 11 BUN 6 L Creatinine 0.6 Estim Creat Clear Calc 140.8 eGFR > 60 BUN/Creatinine Ratio 10 L Glucose 133 H D Calculated Osmolality 279 Lactic Acid 4.0 H 3.0 H 1.7 Calcium 8.5 Corrected Calcium 8.5 Phosphorus 2.7 Magnesium 1.5 L Total Bilirubin AST ALT Alkaline Phosphatase Total Protein Albumin 4.2 D Globulin Albumin/Globulin Ratio Triglycerides Cholesterol LDL Cholesterol, Calc HDL Cholesterol Cholesterol/HDL Ratio 01/10/25 06:05 WBC 6.7 D RBC 4.08 L Hgb 12.2 L D Hct 35.9 L D MCV 88 MCH 29.9 MCHC 34.0 RDW Std Deviation 41.7 Plt Count 196 D Neut % (Auto) 73 Lymph % (Auto) 21 [place] % (Auto) 5 Eos % (Auto) 1 Baso % (Auto) 0 Neut # (Auto) 4.9 Lymph # (Auto) 1.4 [place] # (Auto) 0.3 Eos # (Auto) 0.1 Baso # (Auto) 0.0 Immature Gran # (Auto) 0.02 H Absolute Nucleated RBC 0.00 Immature Gran % 0 Nucleated RBC % 0 VBG pH VBG pCO2 VBG pO2 VBG O2 Sat ([place]) VBG Base Excess Sodium 137 Potassium 4.0 Chloride 99 Carbon Dioxide 28.7 Anion Gap 9 BUN 10 Creatinine 0.5 L Estim Creat Clear Calc 183.2 eGFR > 60 BUN/Creatinine Ratio 20 Glucose 165 H Calculated Osmolality 276 Lactic Acid Calcium 8.2 L Corrected Calcium 8.5 Phosphorus 2.4 Magnesium 1.7 Total Bilirubin 1.4 H AST 90 H ALT 116 H Alkaline Phosphatase 72 D Total Protein 4.9 L Albumin 3.6 D Globulin 1.3 L Albumin/Globulin Ratio 2.8 H Triglycerides 40 Cholesterol 145 LDL Cholesterol, Calc 69 HDL Cholesterol 68 H Cholesterol/HDL Ratio 2.1 L ABG Interpretation ABG results: 01/09/25 01/09/25 06:12 15:05 VBG pH 7.46 7.49 VBG pCO2 37 38 VBG pO2 50 37 VBG Base Excess 2 6 H Quality Measures Quality Measures VTE prophylaxis Assessment & Plan Assessment Current Active Medications: Generic Name Dose Route Start Last Admin Trade Name Freq PRN Reason Stop Dose Admin Acetaminophen 650 mg 01/09/25 14:07 Acetaminophen 325 Mg Tablet PO 02/08/25 14:06 Q6H PRN Fever >100.4 and pain 1-3 Hydrocodone Bitart/Acetaminophen 1 tab 01/09/25 14:10 Hydrocodone/Apap 5/325 Tablet PO 01/14/25 14:09 Q4HR PRN PAIN SCALE 4-10(Mod-Sev Chlordiazepoxide HCl 25 mg 01/09/25 08:15 01/10/25 05:20 Chlordiazepoxide Hcl 25 Mg Capsule PO 01/14/25 08:14 25 mg TID JOYA Administration Dextrose 25 ml 01/09/25 10:16 Dextrose 50%-Water Inj 50 Ml Syringe IV 02/08/25 10:15 Q15MIN PRN BG 50-70 responsive npo pt Dextrose 50 ml 01/09/25 10:16 Dextrose 50%-Water Inj 50 Ml Syringe IV 02/08/25 10:15 Q15MIN PRN BG <50 OR BG <70 & pt unresponsive Diazepam 2.5 mg 01/09/25 08:11 01/10/25 05:20 Diazepam Inj 5 Mg/Ml Vial 2 Ml IVP 01/14/25 08:10 2.5 mg Q2HR PRN Administration CIWA SCORE 8-13 Diazepam 5 mg 01/09/25 08:11 01/09/25 21:35 Diazepam Inj 5 Mg/Ml Vial 2 Ml IVP 01/14/25 08:10 5 mg Q2HR PRN Administration CIWA SCORE 14-19 Diazepam 10 mg 01/09/25 08:11 01/10/25 08:47 Diazepam Inj 5 Mg/Ml Vial 2 Ml IVP 01/14/25 08:10 10 mg Q2HR PRN Administration CIWA SCORE 20-25 Enoxaparin Sodium 40 mg 01/10/25 09:00 01/10/25 08:48 Enoxaparin Sod Inj 40 Mg/0.4 Ml Syringe SC 01/24/25 08:59 40 mg QDAY OJYA Administration Folic Acid 1 mg 01/09/25 09:00 01/10/25 08:47 Folic Acid 1 Mg Tablet PO 01/14/25 08:59 1 mg BID JOYA Administration Glucagon 1 mg 01/09/25 10:16 Glucagon Inj 1 Mg Vial IM Q15MIN PRN BG <70, and no IV access Lactated Ringer's 1,000 mls @ 75 mls/hr 01/09/25 12:09 01/10/25 05:24 Lactated Ringers IV 02/08/25 12:08 75 mls/hr .[id number] JOYA Administration Insulin Degludec 10 unit 01/10/25 09:00 01/10/25 08:49 Insulin Degludec 5 Unit/0.05 Ml (Per 5 Units) SC 02/09/25 08:59 10 unit QDAY JOYA Administration Insulin Human Lispro 0 unit 01/09/25 17:00 01/10/25 07:55 Insulin Lispro (Admelog) 1 Unit/0.01 Ml Unit SC 02/08/25 16:59 Not Given ACHS JOYA Protocol Nicotine 21 mg 01/09/25 15:15 01/10/25 08:49 Nicotine Patch 21 Mg/24 Hr Patch.Td24 TOP 02/08/25 15:14 21 mg QDAY JOYA Administration Ondansetron HCl 4 mg 01/09/25 14:10 Ondansetron Inj 2 Mg/Ml Inj 2 Ml IVP 02/08/25 14:09 Q6H PRN NAUSEA OR VOMITING Protocol Pantoprazole Sodium 40 mg 01/10/25 09:00 01/10/25 08:47 Pantoprazole 40 Mg Tablet PO 02/09/25 08:59 40 mg QDAY JOYA Administration Sennosides 1 tab 01/09/25 14:10 Senna Tablet PO 02/08/25 14:09 QDAY PRN constipation Protocol Thiamine HCl 100 mg 01/09/25 09:00 01/10/25 08:47 Thiamine 100 Mg Tablet PO 01/14/25 08:59 100 mg BID JOYA Administration Plan #Alcohol Use Disorder #Alcohol Withdrawal #History of Withdrawal Seizures #Lactic acidosis 34-year-old male with past medical history type 2 diabetes on metformin 500 mg twice daily and alcohol use disorder with history of alcoholic seizure and multiple alcohol withdrawal admitted for alcohol withdrawal. UTOX positive alcohol 265.9.? Lactic acidosis 5.1 in the setting of metformin use with malnutrition, possible thiamine depletion. Plan: -[facility] protocol -Scheduled Librium PO 25mg TID -Thiamine 100mg bid -Folic acid 1mg bid -Discontinue LR 75cc/hr -Monitor for breakthrough alcohol withdrawal symptoms (especially, seizures) -Seizure precautions -Aspiration precautions -Replete electrolytes as needed -Valium PRN per [facility] protocol #Starvation Ketosis vs Diabetic Ketoacidosis #Hyperglycemia #Type 2 Diabetes Blood glucose on admission was 430, improved to 180 after 6 units of insulin regular.? Beta hydroxy butyrate is mildly elevated 1.2, UA positive ketone, in setting of malnutrition from alcohol use disorder. HA1c 7.9 Plan: -Discontinue LR 75ml/hr IV1L. -Glucose check q6hr -SSI q4hr -Daily weight, Strict I&Os -Dietitian referral -Diet carb consistent diet Health Maintenance: Code status: Full DVT prophylaxis: Lovenox GI prophylaxis: Protonix Diet: Carb consistent [place]: None Lines: PIV Supplemental O2: None Disposition: Tele bed Assessment and plan discussed with my attending physician Dr. Ariza and Dr. Eng (PGY-2). Dr. Kurtz (PGY-1) ? residential program coordinator Attending Provider Attestation/Addendum I have seen and examined the patient. I was physically present for the marie portions of the services provided including history, physical exam, diagnosis, treatment plans and orders. I agree with assessment and plan of care as documented by residents. Even though this this note was carefully revised there may still be minor errors in video game script writer due to voice recognition software. Ileana Ariza MD
[2025-01-10 10:37] LABS: INR 1.0 (0.9-1.3); Partial Thromboplastin Time 28.3 Seconds (22.0-36.0); Prothrombin Time 10.4 Seconds (9.0-12.2)
[2025-01-10] MEDS: Magnesium Sulfate 4 GM Ivpb 4 GM/50 ML BAG IV (11:37)
[2025-01-10 12:00] VITALS: BP 115/80; PULSE 61; PULSE 78; RESP 18; TEMP 36.1; O2SAT 99
[2025-01-10] MEDS: INSULIN LISPRO (AdmeLOG) 1 UNIT/0.01 ML UNIT SC ×2 (12:49→21:39)
[2025-01-10 14:46] VITALS: BMI 18.1
--- NOTE | 2025-01-10 15:08 | PC.SS ---
SS met with patient regarding his d/c plan. Pt is alert/oriented. Pt was admitted for Alcohol Withdrawal. Pt confirmed demographic and contact information is correct on facesheet. Pt resides with dad. Pt ambulates independently without assistance or DME. Pt is ok with all ADLs. Patient?s pharmacy of choice is [facility]. Pt named his mom, Jyoti Lovett medical decision maker if he is unable. Patient?s choice is to return home upon d/c. Pt states he is diabetic, has glucometer, and test strips. Pt states he is not on dialysis. Mom will provide transportation home. Pt followed up with PCP in May,. SS spoke with pt about community resources and pt was receptive. Pt explained he was enrolled at [facility] in 2019 and was sober for 5 years. D/C plan: Return home Next of Kin: Jyoti Lovett, mom, phone# [phone] PCP: [facility] Address: Correct on facesheet
[2025-01-10 16:00] VITALS: BP 120/83; PULSE 71; PULSE 76; RESP 15; TEMP 36.4; O2SAT 98
[2025-01-10] MEDS: MELATONIN 3 MG TABLET PO (19:23)
[2025-01-10 20:00] VITALS: BP 115/79; PULSE 76; PULSE 77; RESP 14; TEMP 36.4; O2SAT 98
[2025-01-11] VITALS: BP 92/60; PULSE 56; PULSE 61; RESP 16; TEMP 36.1; O2SAT 97
--- NOTE | 2025-01-11 01:31 | PC.NURSE ---
Informed MD Flores of patient's heart rate dropping to a lowest of 41 and 48 a couple of times while the patient was sleeping. No new orders.
[2025-01-11 04:00] VITALS: BP 116/83; PULSE 58; PULSE 63; RESP 17; TEMP 36.4; O2SAT 97
[2025-01-11] MEDS: DIAZEPAM INJ 5 MG/ML VIAL 2 ML 2.5 MG IVP (05:16)
[2025-01-11 05:42] LABS: Basophils # (Auto) 0.0 Thou/mm3 (0.0-0.2); Basophils % (Auto) 0 % (0-2.5); Eosinophils # (Auto) 0.1 Thou/mm3 (0.0-0.5); Eosinophils % (Auto) 1 % (0-10); Hematocrit 36.0 % (41.0-53.0); Hemoglobin 12.3 g/dL (13.5-16.0); Immature Granulocytes Auto 0.03 Thou/mm3 (0.00-0.00); Lymphocytes # (Auto) 1.6 Thou/mm3 (1.0-4.8); Lymphocytes % (Auto) 24 % (10-50); Mean Corpuscular HGB Conc 34.2 g/dl (31.0-37.0); Mean Corpuscular Hemoglobin 30.2 pg (25.0-35.0); Mean Corpuscular Volume 89 fL (80-100); Monocytes # (Auto) 0.4 Thou/mm3 (0.0-0.8); Monocytes % (Auto) 5 % (0-12); Neutrophils # (Auto) 4.6 Thou/mm3 (1.8-7.7); Neutrophils % (Auto) 69 % (37-80); Nucleated Red Blood Cell # 0.00 Thou/mm3 (0.00-0.00); Nucleated Red Blood Cell % 0 /100 WBC (0); Platelet Count 150 Thou/mm3 (140-440); RDW Standard Deviation 41.6 fL (35.1-43.9); Red Blood Count 4.07 Miln/mm3 (4.50-5.90); White Blood Count 6.7 Thou/mm3 (3.8-10.6)
[2025-01-11 06:21] LABS: Alanine Aminotransferase 158 U/L (10-49); Albumin, Serum 3.7 gm/dL (3.5-5.0); Albumin/Globulin Ratio 3.1 (1.2-2.2); Alkaline Phosphatase 74 U/L (46-116); Anion Gap 10 (7-16); Aspartate Amino Transferase 217 U/L (0-34); BUN/Creatinine Ratio 12 Ratio (12-20); Bilirubin,Total 0.7 mg/dL (0.3-1.2); Blood Urea Nitrogen 6 mg/dL (9-23); Calcium 8.3 mg/dL (8.3-10.6); Calcium (Corrected) 8.5 mg/dL (8.5-10.1); Carbon Dioxide 26.4 mMol/L (20.0-31.0); Chloride 104 mMol/L (98-107); Creatinine (Component) 0.5 mg/dL (0.6-1.3); Estimated Creatinine Clearance 183.2 mL/min (>60); Globulin 1.2 gm/dL (2.3-3.5); Glucose 152 mg/dL (74-106); Magnesium 2.0 mg/dL (1.6-2.6); Osmolality,Calculated 280 (275-295); Phosphorous 4.2 mg/dL (2.4-5.1); Potassium 3.8 mMol/L (3.4-5.1); Sodium 140 mMol/L (136-145); Total Protein 4.9 gm/dL (5.7-8.2); eGFR > 60 See Note
[2025-01-11 08:00] VITALS: BP 120/78; PULSE 58; PULSE 93; RESP 14; TEMP 36.4; O2SAT 98
--- NOTE | 2025-01-11 08:04 | PD.RESPRO ---
Documentation for date of: 01/11/25 Subjective Subjective Interval history: Overnight patient received diazepam 2.5mg x 3, diazepam 10mg x1, Librium 25mg 3 times daily. CIWA 10-0 Exam Vital Signs Temp Pulse Resp BP Pulse Ox O2 Del Method 97.5 F 63 17 116/83 97 Room Air 01/11/25 04:00 01/11/25 04:00 01/11/25 04:00 01/11/25 04:00 01/11/25 04:00 01/11/25 04:00 Narrative Exam General: No acute distress, malnourished, AAO x3 Eye: PERRL, EOMI, normal conjunctiva, no scleral icterus HENT: Normocephalic, atraumatic, hearing intact to conversation at normal volume, moist oral mucosa Neck: Supple, non-tender, no JVD, no lymphadenopathy Lungs: Non-labored respirations, symmetric chest rise, Clear to auscultate bilaterally, No wheezing, rhonchi, crackles Heart: Peripheral pulses intact bilaterally, Regular Rate and Rhythm. Abdomen: Soft, tender to palpation on LLQ, non-distended, no palpable masses Musculoskeletal: Intense tremor in bilaterally upper extremities, No cyanosis or edema, No visible joint swelling Skin: Skin is warm, dry, no rashes or lesions. Psychiatric: Cooperative, appropriate mood and affect, Awake and alert, not agitated Neuro: Cranial nerves II-XII grossly intact. Strength 5/5 throughout. Sensations intact to light touch. Objective Labs 01/11/25 04:50 01/11/25 04:50 Labs: Laboratory Results - last 24 hr 01/10/25 01/11/25 06:15 04:50 WBC 6.7 RBC 4.07 L Hgb 12.3 L Hct 36.0 L MCV 89 MCH 30.2 MCHC 34.2 RDW Std Deviation 41.6 Plt Count 150 D Neut % (Auto) 69 Lymph % (Auto) 24 [place] % (Auto) 5 Eos % (Auto) 1 Baso % (Auto) 0 Neut # (Auto) 4.6 Lymph # (Auto) 1.6 [place] # (Auto) 0.4 Eos # (Auto) 0.1 Baso # (Auto) 0.0 Immature Gran # (Auto) 0.03 H Absolute Nucleated RBC 0.00 Immature Gran % 0 Nucleated RBC % 0 PT 10.4 INR 1.0 APTT 28.3 Sodium 140 Potassium 3.8 Chloride 104 Carbon Dioxide 26.4 Anion Gap 10 BUN 6 L Creatinine 0.5 L Estim Creat Clear Calc 183.2 eGFR > 60 BUN/Creatinine Ratio 12 Glucose 152 H Calculated Osmolality 280 Calcium 8.3 Corrected Calcium 8.5 Phosphorus 4.2 Magnesium 2.0 Total Bilirubin 0.7 D AST 217 H ALT 158 H Alkaline Phosphatase 74 Total Protein 4.9 L Albumin 3.7 Globulin 1.2 L Albumin/Globulin Ratio 3.1 H ABG Interpretation ABG results: 01/09/25 01/09/25 06:12 15:05 VBG pH 7.46 7.49 VBG pCO2 37 38 VBG pO2 50 37 VBG Base Excess 2 6 H Quality Measures Quality Measures VTE prophylaxis Assessment & Plan Assessment Current Active Medications: Generic Name Dose Route Start Last Admin Trade Name Freq PRN Reason Stop Dose Admin Acetaminophen 650 mg 01/09/25 14:07 Acetaminophen 325 Mg Tablet PO 02/08/25 14:06 Q6H PRN Fever >100.4 and pain 1-3 Hydrocodone Bitart/Acetaminophen 1 tab 01/09/25 14:10 Hydrocodone/Apap 5/325 Tablet PO 01/14/25 14:09 Q4HR PRN PAIN SCALE 4-10(Mod-Sev Chlordiazepoxide HCl 25 mg 01/09/25 08:15 01/11/25 05:07 Chlordiazepoxide Hcl 25 Mg Capsule PO 01/14/25 08:14 25 mg TID JOYA Administration Dextrose 25 ml 01/09/25 10:16 Dextrose 50%-Water Inj 50 Ml Syringe IV 02/08/25 10:15 Q15MIN PRN BG 50-70 responsive npo pt Dextrose 50 ml 01/09/25 10:16 Dextrose 50%-Water Inj 50 Ml Syringe IV 02/08/25 10:15 Q15MIN PRN BG <50 OR BG <70 & pt unresponsive Diazepam 2.5 mg 01/09/25 08:11 01/11/25 05:16 Diazepam Inj 5 Mg/Ml Vial 2 Ml IVP 01/14/25 08:10 2.5 mg Q2HR PRN Administration CIWA SCORE 8-13 Diazepam 5 mg 01/09/25 08:11 01/09/25 21:35 Diazepam Inj 5 Mg/Ml Vial 2 Ml IVP 01/14/25 08:10 5 mg Q2HR PRN Administration CIWA SCORE 14-19 Diazepam 10 mg 01/09/25 08:11 01/10/25 08:47 Diazepam Inj 5 Mg/Ml Vial 2 Ml IVP 01/14/25 08:10 10 mg Q2HR PRN Administration CIWA SCORE 20-25 Enoxaparin Sodium 40 mg 01/10/25 09:00 01/10/25 08:48 Enoxaparin Sod Inj 40 Mg/0.4 Ml Syringe SC 01/24/25 08:59 40 mg QDAY JOYA Administration Folic Acid 1 mg 01/09/25 09:00 01/10/25 21:39 Folic Acid 1 Mg Tablet PO 01/14/25 08:59 1 mg BID JOYA Administration Glucagon 1 mg 01/09/25 10:16 Glucagon Inj 1 Mg Vial IM Q15MIN PRN BG <70, and no IV access Insulin Degludec 10 unit 01/10/25 09:00 01/10/25 08:49 Insulin Degludec 5 Unit/0.05 Ml (Per 5 Units) SC 02/09/25 08:59 10 unit QDAY JOYA Administration Insulin Human Lispro 0 unit 01/09/25 17:00 01/11/25 07:27 Insulin Lispro (Admelog) 1 Unit/0.01 Ml Unit SC 02/08/25 16:59 Not Given ACHS JOYA Protocol Nicotine 21 mg 01/09/25 15:15 01/10/25 08:49 Nicotine Patch 21 Mg/24 Hr Patch.Td24 TOP 02/08/25 15:14 21 mg QDAY JOYA Administration Ondansetron HCl 4 mg 01/09/25 14:10 Ondansetron Inj 2 Mg/Ml Inj 2 Ml IVP 02/08/25 14:09 Q6H PRN NAUSEA OR VOMITING Protocol Pantoprazole Sodium 40 mg 01/10/25 09:00 01/10/25 08:47 Pantoprazole 40 Mg Tablet PO 02/09/25 08:59 40 mg QDAY JOYA Administration Sennosides 1 tab 01/09/25 14:10 Senna Tablet PO 02/08/25 14:09 QDAY PRN constipation Protocol Thiamine HCl 100 mg 01/09/25 09:00 01/10/25 21:39 Thiamine 100 Mg Tablet PO 01/14/25 08:59 100 mg BID JOYA Administration Plan #Alcohol Use Disorder #Alcohol Withdrawal #History of Withdrawal Seizures #Lactic acidosis 34-year-old male with past medical history type 2 diabetes on metformin 500 mg twice daily and alcohol use disorder with history of alcoholic seizure and multiple alcohol withdrawal admitted for alcohol withdrawal. UTOX positive alcohol 265.9.? Lactic acidosis 5.1 in the setting of metformin use with malnutrition, possible thiamine depletion. Plan: -[facility] protocol -Scheduled Librium PO 25mg TID -Thiamine 100mg bid -Folic acid 1mg bid -Monitor for breakthrough alcohol withdrawal symptoms (especially, seizures) -Seizure precautions -Aspiration precautions -Replete electrolytes as needed -Valium PRN per [facility] protocol #Starvation Ketosis vs Diabetic Ketoacidosis #Hyperglycemia #Type 2 Diabetes Blood glucose on admission was 430, improved to 180 after 6 units of insulin regular.? Beta hydroxy butyrate is mildly elevated 1.2, UA positive ketone, in setting of malnutrition from alcohol use disorder. HA1c 7.9 Plan: -Glucose check q6hr -SSI q4hr -Daily weight, Strict I&Os -Dietitian referral -Diet carb consistent diet Health Maintenance: Code status: Full DVT prophylaxis: Lovenox GI prophylaxis: Protonix Diet: Carb consistent [place]: None Lines: PIV Supplemental O2: None Disposition: Tele bed Assessment and plan discussed with my attending physician Dr. Ariza and Dr. Eng (PGY-2). Dr. Kurtz (PGY-1) ? vice president of talent acquisition
--- NOTE | 2025-01-11 08:54 | PC.NURSE ---
Patient left Dr. Arnold OBRIEN and charge nurse aware.
--- NOTE | 2025-01-11 13:21 | EVENTNT_ITS ---
<Statement entered by Amadeo Barrett MD - 01/13/25 17:52> Patient was seen and examined at bedside. I agree on the assessment and plan on this note as documented by resident Dr. Shruthi Kurtz, PGY1. 34-year-old male admitted for alcohol withdrawal, received a call from patient's nurse that he is requesting to leave AGAINST MEDICAL ADVICE. Discussed with patient at bedside, patient is alert and oriented x 5, verbalizes and understands the consequences of leaving AGAINST MEDICAL ADVICE. Risks and benefits were explained in detail, patient decided to pursue the decision to leave. Patient was educated that he can return to emergency department if his symptoms worsen or on a as needed basis. Case discussed with attending Dr. Dr Ileana Barrett MD PGY-2 Documentation for date of: 01/11/25 Event Note Event Note: Around 8:30am, patient spoke to nurse and expressed a desire to leave the hospital against medical advice. Patient was seen by physicians at bedside. Patient reported not being able to walk around and would like to go home. Patient was informed of the risks associated with early discharge, including the potential for worsening withdrawal symptoms, seizures, delirium tremens, and even . Patient was counseled on the importance of continued medical care, monitoring, and safe alcohol withdrawal management. Despite this, patient insisted on leaving AGAINST MEDICAL ADVICE with the understanding of associated risks. Patient left the hospital without further complications. Patient was advised to avoid alcohol consumption and to seek immediate medical care if withdrawal symptoms worsen or if any complications arise. Return precaution given. Assessment and plan discussed with my attending physician Dr. Ariza and Dr. Barrett (PGY-2). Dr. Kurtz (PGY-1) ? resident services manager
== END 2025-01-11 09:00 | disposition left against medical advice (07) | DRG 770 ==
LOC: SERX 07:44 → SERHOLD 08:41 → S2NX 14:58
PROVIDERS: Emergency Medicine; Admitting Provider Student in an Organized Health Care Education/Training Program; Emergency Provider Emergency Medicine; PCP Family Medicine; Visit Provider Student in an Organized Health Care Education/Training Program
DX: F10.139 Alcohol abuse with withdrawal, unspecified (principal); R10.32 Left lower quadrant pain; F17.200 Nicotine dependence, unspecified, uncomplicated; E11.65 Type 2 diabetes mellitus with hyperglycemia; Z79.84 Long term (current) use of oral hypoglycemic drugs; E87.20 Acidosis, unspecified; Z96.643 Presence of artificial hip joint, bilateral; Z53.29 Procedure and treatment not carried out because of patient's decision for other reasons
CPT/HCPCS: 36415; 36600; 71045; 74177; 76705; 80053; 80061; 80069; 80307; 80320; 81001; 82010; 82150; 82248; 82550; 82803; 83036; 83605; 83690; 83735; 83880; 84100; 84443; 84484; 85025; 85610; 85730; 93005; 94762; 96361; 96374; 96375; 96376; 99284; A4649; J1650; J1815; J2060; J2405; J2470; J3360; J3411; J3475; J3490; J7030; J7120; Q9967; A9270; G0480

== ENCOUNTER 2025-01-11 15:32 | Inpatient (IN) | payer MEDICAID, SELFPAY ==
[2025-01-11 15:32] VITALS: PULSE 94; RESP 16; O2SAT 99; BMI 18.4
[2025-01-11 15:52] VITALS: BP 132/89; PULSE 91; RESP 16; TEMP 36.8; O2SAT 98
--- NOTE | 2025-01-11 16:19 | EKG_ITS ---
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
--- NOTE | 2025-01-11 16:23 | EDNOTE_ITS ---
<Statement entered by Mishel Mason MD - 01/11/25 17:35> I, Mishel Mason MD, have reviewed the history, exam, and assessment of the patient. I have evaluated the patient independently and agree with the plan of care documented by Dr. Benavides. All diagnostic studies were reviewed and discussed. I confirm the diagnosis as documented by the Resident. I was present during the Medical Decision Making for this patient. The patient's plan of care was created between myself and the Resident and consistent with our discussion of the patient's case. ED Alcohol RME/HPI General Chief Complaint: Weakness Stated Complaint: GENERALIZED WEAKNESS X 2 WEEKS Time Seen by Provider: 01/11/25 16:08 Arrival date/time: 01/11/25 15:32 RME / HPI RME / HPI narrative: cc: Alcohol Withdrawal Patient is a 34-year-old male with a past medical history of alcohol use disorder, history of alcoholic seizures, and diabetes mellitus type 2 [id number] who presented to the emergency room via private vehicle with a chief complaint of alcohol withdrawal after leaving AGAINST MEDICAL ADVICE this morning from hospital. Patient's denied using any alcohol after leaving the hospital but stated withdrawal symptoms worsened after leaving. Experiencing visual-flashing lights and auditory hallucinations-hearing voices. Tactile hallucinations feels like flies are crawling all over his body per patient. Per patient also feels anxious. Patient would like to be readmitted to the hospital and would like additional resources drinking. [id number] history. CIWA 19 Related Data Home Medications ?Medication ?Instructions ?Recorded ?Confirmed gabapentin 300 mg capsule 300 mg PO HS 08/27/23 metformin 500 mg tablet 500 mg PO BID 01/09/2501/09 Previous Rx's ?Medication ?Instructions ?Recorded acetaminophen 500 mg tablet 1,000 mg (2 x 500 mg) PO Q 6H PRN 08/30/23 (Acetaminophen Extra Strength) pain #90 tabs aspirin 81 mg tablet,delayed 81 mg PO BID #60 tabs 10/15 release doxycycline hyclate 100 mg tablet 100 mg PO BID #14 ta bs 08/30/23 gabapentin 300 mg capsule 300 mg PO .qhs #30 caps 10/15 oxycodone 5 mg tablet 5 mg PO Q6H PRN pain #28 tab s 08/30/23 sennosides 8.6 mg-docusate sodium 1 tab-cap PO QDAY #3 0 tabs 08/30/23 50 mg tablet (Senna-S) tramadol 50 mg tablet 50 mg PO Q6H PRN pain #28 ta bs 09/14/23 tramadol 50 mg tablet 50 mg PO Q8H PRN pain #28 ta bs 09/14/23 acetaminophen 500 mg tablet 1,000 mg (2 x 500 mg) PO Q 6H PRN 09/27/23 (Acetaminophen Extra Strength) pain #90 tabs acetaminophen 500 mg tablet 1,000 mg (2 x 500 mg) PO Q 6H PRN 10/22/23 (Acetaminophen Extra Strength) pain #90 tabs tramadol 50 mg tablet 50 mg PO Q6H PRN pain #28 ta bs 10/22/23 hydrocodone 5 mg-acetaminophen 325 1 tab PO BID PRN pa in #10 tabs 02/23/24 mg tablet ibuprofen 600 mg tablet 600 mg PO Q6H #30 tabs 02/22 Allergies Allergy/AdvReac Type Severity Reaction Status Date / Time No Known Allergies Allergy Verified 02/23/24 14:54 Review of Systems Review of Systems Narrative Review of Systems: General appearance: NO weight change, NO fatigue, NO weakness, NO fever, NO chills, NO night sweats, No cough Skin: NO rash, Yes-crawling feeling, NO sores, NO moles HEENT: NO Trauma, NO nausea, NO vomiting, NO visual changes, NO blurry vision, NO double vision, NO tinnitus, NO vertigo, NO ear discharge, NO rhinorrhea, NO stuffiness, NO sneezing, NO allergy, NO epistaxis. NO Hoarseness, NO sore throat, NO swollen neck. Cardiac: NO Palpitations, NO dyspnea on exertion, NO orthopnea, NO paroxysmal nocturnal dyspnea, NO edema Respiratory: NO Shortness of Breath, NO Wheezing, NO Cough, NO Sputum, NO hemoptysis GI:NO appetite, NO nausea, NO vomiting, NO dysphagia, NO changes in bowel frequency, NO stool color, Yes diarrhea, NO constipation, NO hemetemesis, NO hemorrhoids, NO melena, NO hematechezia, NO abdominal pain, NO jaundice Renal: NO frequency, NO hesitancy, NO urgency, NO hematuria, NO nocturia, NO incontinence MSK: NO muscle weakness, NO gout, NO arthritis, NO muscle stiffness Neuro: NO headaches, NO tremors, NO weakness, NO paralysis, NO seizures, NO loss of consciousness, NO numbness. Hem: NO anemia, NO easy bruising/bleeding, NO petechiae, NO purpura Endo: NO heat/cold intolerance, NO excessive sweating, NO polyuria, NO polydipsia, NO polyphagia, NO thyroid problems, NO diabetes Pysch: NO mood, Yes anxiety, NO depression ED Exam Narrative Physical exam: General Appearance: Alert & Oriented X3, thin male who is lying in bed in no acute distress HEENT: Skull symmetrical and atraumatic. Conjunctivae pale pink and moist. Pupils equal, round, reactive to light and accommodation (PERRL). External ear without lesion or discharge. Straight, nares patient, mucosa pink, no discharge. Cardio: Normal Rate and Rhythm with S1 and S2 heart sounds. No murmurs or extra heart sounds auscultated. No bruits on carotid auscultation. No peripheral edema or cyanosis. Lungs: Symmetric with good expansion. Chest and back non-tender. Breath sounds vesicular without crackles, wheezing or rhonchi Abdomen: Non-tender, Non-distended, Normal Reactive Bowel Sounds Neuro: Alert, cooperative, oriented to person, place, and time. Speech clear. CN grossly intact. Upper motor strength 5/5 w/ bilateral tremors and Lower motor strength 5/5. Sensation intact. Course Quality Measures none Orders Category Date Time Status Temp Recruiter Q4H START 00 Care 01/11/25 16:19 Active EKG (ED ONLY) *Do not use* NOW Care 01/11/25 16:19 Completed IV [Insert IV] NOW Care 01/11/25 16:19 Active Miscellaneous Nursing Order X1 Care 01/11/25 16:18 Active EKG (ED Only) Stat Exams 01/11/25 16:19 Draft Alcohol, Blood Medical Stat Lab 01/11/25 16:35 Received Drug Screen,Urine Stat Lab 01/11/25 16:42 Received Nicotine Patch [Nicoderm Patch] Med 01/11/25 16:46 Discontinued 14 mg TOP X1 ONE PHENobarbital Inj 130 mg Med 01/11/25 16:18 Discontinued Sodium Chloride 0.9% Flush [NS Flush] 12 ml IVP X1 Vital Signs Vital signs: Vital Signs Temperature 98.2 F 01/11/25 15:52 Pulse Rate 91 01/11/25 15:52 Respiratory Rate 16 01/11/25 15:52 Blood Pressure 132/89 H 01/11/25 15:52 Pulse Oximetry (%) 98 01/11/25 15:52 Oxygen Delivery Method Room Air 01/11/25 15:52 Discharge Plan Plan Patient Disposition: Admit Acute Care w/in Hospital Prescriptions/Referrals Prescriptions/Med Rec: No Action tramadol 50 mg tablet 50 mg PO Q6H PRN (Reason: pain) Qty: 28 0RF acetaminophen [Acetaminophen Extra Strength] 500 mg tablet 1,000 mg PO Q6H MDD 1000mg PRN (Reason: pain) Qty: 90 0RF tramadol 50 mg tablet 50 mg PO Q6H PRN (Reason: pain) Qty: 28 0RF hydrocodone-acetaminophen 5-325 mg tablet 1 tab PO BID MDD 10 PRN (Reason: pain) Qty: 10 0RF ibuprofen 600 mg tablet 600 mg PO Q6H Qty: 30 0RF metformin 500 mg tablet 500 mg PO BID Patient Comments: TAKE 1 TABLET BY MOUTH TWICE DAILY WITH MEALS gabapentin 300 mg capsule 300 mg PO HS Patient Comments: TAKE 1 CAPSULE BY MOUTH EVERY DAY AT BEDTIME sennosides-docusate sodium [Senna-S] 8.6-50 mg tablet 1 tab-cap PO QDAY Qty: 30 0RF aspirin 81 mg tablet,delayed release (DR/EC) 81 mg PO BID Qty: 60 0RF acetaminophen [Acetaminophen Extra Strength] 500 mg tablet 1,000 mg PO Q6H MDD 1000mg PRN (Reason: pain) Qty: 90 0RF gabapentin 300 mg capsule 300 mg PO .qhs Qty: 30 0RF doxycycline hyclate 100 mg tablet 100 mg PO BID Qty: 14 0RF oxycodone 5 mg tablet 5 mg PO Q6H MDD 40 PRN (Reason: pain) Qty: 28 0RF tramadol 50 mg tablet 50 mg PO Q8H PRN (Reason: pain) Qty: 28 0RF acetaminophen [Acetaminophen Extra Strength] 500 mg tablet 1,000 mg PO Q6H MDD 1000mg PRN (Reason: pain) Qty: 90 0RF Problem List Clinical Impression: Alcohol withdrawal Patient/Caregiver Discharge Instructions Print Language: Thai Stand Alone Forms: Linda Award Info., Patient Portal Info Letter Alcohol Patient data External records reviewed:: [facility] previous records Clinical information provided by:: patient Social determinants that could affect healthcare access:: alcohol use Patient has the following chronic illnesses:: hx of alcohol use disorder How is presenting disease/condition affected by chronic disease/condition?: exacerbated by (alcohol use disorder ) Evaluation data The following diagnostics were reviewed and interpreted by me:: other (specify) (Patient left AMA this morning and is returning for admission ) Lab and/or radiology exams considered but not ordered:: None Interpretation Summary: Patient is 34-year-old male with a past medical history of alcohol use disorder, alcoholic seizures, history of diabetes mellitus type 2 who presented to the emergency room with alcohol withdrawal after leaving AGAINST MEDICAL ADVICE this morning on 01/11/2025. RASHEED 19. Patinet requesting to be re-admitted and would likel to treat his alcohol withdrawal. - The patient's plan was discussed with attending Dr. Marlon Benavides MD PGY2 Internal Medicine Medications / Prescriptions Medications or Prescriptions considered but not ordered:: none Medication administrations:: Medication Administration History Discontinued Medications Phenobarbital Sodium 130 mg/ (Sodium Chloride 12 ml) 0 mg IVP X1 ONE Stop: 01/11/25 16:19 Nicotine (Nicotine Patch 14 Mg/24 Hr Patch.Td24) 14 mg TOP X1 ONE Stop: 01/11/25 16:47 same as above Consultations Consultation(s) initiated? (list below): No Diagnosis Differential diagnosis alcohol: hypomagnesemia, alcohol intoxication and alcohol withdrawal syndrome Most likely diagnosis given after review of the tests above:: Patient is 34-year-old male with a past medical history of alcohol use disorder, alcoholic seizures, history of diabetes mellitus type 2 who presented to the emergency room with alcohol withdrawal after leaving AGAINST MEDICAL ADVICE this morning on 01/11/2025. DIANA[place] 19. Patinet requesting to be re-admitted and would likel to treat his alcohol withdrawal. - The patient's plan was discussed with attending Dr. Marlon Benavides MD PGY2 Internal Medicine Admission Indicated Admission indicated?: indicated Admission Request Was there a request for admission?: Yes Admission Attestation Admission request attestation: Discussed case with Dr. Grey, PGY-2, from Hospitalist service regarding admission. Discussed patients ED course, exam findings, labs, and radiology results. The Hospitalist agrees to accept the patient for admission. Disposition Plan Disposition Plan: Admit
[2025-01-11 17:08] LABS: Amphetamine/Methamp Scrn,U Negative (Negative); Barbiturate Screen,Urine Negative (Negative); Benzodiazepines Screen,Urine Positive (Negative); Benzoylecgonine Screen, Ur Negative (Negative); Fentanyl Screen,Urine Negative (Negative); Opiate Screen,Urine Negative (Negative); THC Screen,Urine Negative (Negative)
[2025-01-11 17:10] LABS: Alcohol, Blood Medical < 3.0 mg/dL (0-10.0)
--- NOTE | 2025-01-11 17:19 | ESHP_ITS ---
<Statement entered by Silas Eng MD - 01/12/25 17:34> Patient seen and examined at bedside. I discussed and supervised with the research intern physician who took care of this patient. I personally saw and examined the patient. I agree with most of the assessment and plan. Plan of care discussed with attending Dr. Ariza. Silas Eng MD PGY-2 Documentation for date of: 01/11/25 HPI History of Present Illness History of present illness: 34-year-old male with past medical history of type 2 diabetes, bilateral hip replacement, and alcohol use disorder history of alcoholic seizure 2019 presented with left lower quadrant abdominal pain with nausea, diarrhea x 1 day.? Admitted for alcohol withdrawal.? Recent hospitalization and left AMA on 12/28 and 01/11 for diagnosis of alcohol withdrawal. Admission on 12/26 echo LVEF 55-60% mild CT head negative Doppler ultrasound negative. Admission on 01/09 showed CTAP hepatomegaly CXR mild hyperexpansion Abdomen US negative. Patient reported left lower quadrant pain with nausea, bowel incontinence with orange fluid x2 today. Patient reported went home after leaving AMA from hospital, could not eat anything due to nausea, no vomiting. Reported 4 BM that was incontinence and patient could not make it to restroom. No reported of urinary incontinence. Denied numbness and tingling in bilateral extremities.?Reported smoking cigarette 1 pack/day x 20 years.? Was in rehab for alcohol use in 2019 sober for 5 years until 9 days ago, drank 1 bottle of Caleb per day.? Last drink 4 days ago of 1 full bottle of Caleb. ED: Labs: Not done since patient is re-admitted within 12 hours of AMA for same complaint. UA positive Benzos, negative alcohol Meds: Nicotine patch 14mg, Phenobarbital 130mg Review of Systems Review of Systems Systems Reviewed: All systems reviewed, normal except as documented Exam Vital Signs Temp Pulse Resp BP Pulse Ox O2 Del Method 98.2 F 91 16 132/89 H 98 Room Air 01/11/25 15:52 01/11/25 15:52 01/11/25 15:52 01/11/25 15:52 01/11/25 15:52 01/11/25 15:52 Narrative Exam General: No acute distress, malnourished, AAO x3 Eye: PERRL, EOMI, normal conjunctiva, no scleral icterus HENT: Normocephalic, atraumatic, hearing intact to conversation at normal volume, moist oral mucosa Neck: Supple, non-tender, no JVD, no lymphadenopathy Lungs: Non-labored respirations, symmetric chest rise, Clear to auscultate bilaterally, No wheezing, rhonchi, crackles Heart: Peripheral pulses intact bilaterally, Regular Rate and Rhythm. Abdomen: Soft, tender to palpation on LLQ, non-distended, no palpable masses Musculoskeletal: Intense tremor in bilaterally upper extremities, No cyanosis or edema, No visible joint swelling Skin: Skin is warm, dry, no rashes or lesions. Psychiatric: Cooperative, appropriate mood and affect, Awake and alert, not agitated Neuro: Cranial nerves II-XII grossly intact. Strength 5/5 throughout. Sensations intact to light touch. Results: Labs 01/12/25 04:19 01/12/25 04:19 Quality Measures Quality Measures VTE prophylaxis Medications Home Medications and Allergies Home Medications ?Medication ?Instructions ?Recorded ?Confirmed ?Type gabapentin 300 mg capsule 300 mg PO HS 08/27/23 History metformin 500 mg tablet 500 mg PO BID 01/09/2501/12 History Allergies Allergy/AdvReac Type Severity Reaction Status Date / Time No Known Allergies Allergy Verified 02/23/24 14:54 Visit Medications Acetaminophen (Acetaminophen 325 Mg Tablet) 650 mg PO Q6H PRN PRN Reason: Fever >100.4 and pain 1-3 Stop: 02/10/25 17:08 Chlordiazepoxide HCl (Chlordiazepoxide Hcl 25 Mg Capsule) 25 mg PO TID [facility] Stop: 01/12/25 21:59 Diazepam (Diazepam Inj 5 Mg/Ml Vial 2 Ml) 2.5 mg IVP Q2HR PRN PRN Reason: CIWA SCORE 8-13 Stop: 01/16/25 17:13 Diazepam (Diazepam Inj 5 Mg/Ml Vial 2 Ml) 5 mg IVP Q2HR PRN PRN Reason: CIWA SCORE 14-19 Stop: 01/16/25 17:13 Diazepam (Diazepam Inj 5 Mg/Ml Vial 2 Ml) 10 mg IVP Q2HR PRN PRN Reason: CIWA SCORE 20- Stop: 01/16/25 17:13 Enoxaparin Sodium (Enoxaparin Sod Inj 40 Mg/0.4 Ml Syringe) 40 mg SC QDAY JOYA Stop: 01/26/25 08:59 Folic Acid (Folic Acid 1 Mg Tablet) 1 mg PO BID JOYA Stop: 01/16/25 20:59 Nicotine (Nicotine Patch 21 Mg/24 Hr Patch.Td24) 21 mg TOP QDAY JOYA Stop: 02/11/25 08:59 Ondansetron HCl (Ondansetron Inj 2 Mg/Ml Inj 2 Ml) 4 mg IVP Q6H PRN; Protocol PRN Reason: NAUSEA OR VOMITING Stop: 02/10/25 17:08 Oxycodone/Acetaminophen (Oxycodone/Apap 5/325 Tablet) 1 tab PO Q6H PRN PRN Reason: PAIN SCALE 4-10(Mod-Sev Stop: 01/16/25 17:08 Pantoprazole Sodium (Pantoprazole 40 Mg Tablet) 40 mg PO QDAY JOYA Stop: 02/11/25 08:59 Sennosides (Senna Tablet) 1 tab PO QDAY PRN; Protocol PRN Reason: constipation Stop: 02/10/25 17:08 Thiamine HCl (Thiamine 100 Mg Tablet) 100 mg PO BID JOYA Stop: 01/16/25 20:59 Discontinued Medications Phenobarbital Sodium 130 mg/ (Sodium Chloride 12 ml) 0 mg IVP X1 ONE Stop: 01/11/25 16:19 Nicotine (Nicotine Patch 14 Mg/24 Hr Patch.Td24) 14 mg TOP X1 ONE Stop: 01/11/25 16:47 Assessment & Plan Plan #Alcohol Use Disorder #Alcohol Withdrawal #History of Withdrawal Seizures 34-year-old male with past medical history type 2 diabetes on metformin 500 mg twice daily and alcohol use disorder with history of alcoholic seizure and multiple alcohol withdrawal admitted for alcohol withdrawal. UTOX positive benzos, negative alcohol, has been hospitalized for the past 2 days for alcohol withdrawal treatment at [place], left AMA 12 hours ago.? Plan: -[facility] protocol -Scheduled Librium PO 25mg TID -Thiamine 100mg bid -Folic acid 1mg bid -Monitor for breakthrough alcohol withdrawal symptoms (especially, seizures) -Seizure precautions -Aspiration precautions -Replete electrolytes as needed -Valium PRN per [facility] protocol #Abdominal pain Reported left lower quadrant pain with nausea, bowel incontinence x4 with orange fluid x2 today. Patient reported went home after leaving AMA from hospital, could not eat anything due to nausea, no vomiting. Reported 4 BM that was incontinence and patient could not make it to restroom. No reported of urinary incontinence. Denied numbness and tingling in bilateral extremities.? Plan: -Monitor for bowel movement -Zofran for anusea/vomiting #Type 2 Diabetes HA1c 7.9 Plan: -Glucose check q6hr -SSI q4hr -Daily weight, Strict I&Os -Dietitian referral -Diet carb consistent diet Health Maintenance: Code status: Full DVT prophylaxis: Lovenox GI prophylaxis: Protonix Diet: Carb consistent Gotti: None Lines: PIV Supplemental O2: None Disposition: Tele bed Assessment and plan discussed with my attending physician Dr. Ariza and Dr. Eng (PGY-2). Dr. Kurtz (PGY-1) ? senior resident care director Attending Provider Attestation/Addendum I have seen and examined the patient. I was physically present for the marie portions of the services provided including history, physical exam, diagnosis, treatment plans and orders. I agree with assessment and plan of care as documented by residents. After examination of the patient and review of the clinical data I feel that this patient needs admission to the hospital for further treatment/evaluation. Even though this this note was carefully revised there may still be minor errors in charger tester due to voice recognition software. Ileana Ariza MD
[2025-01-11] MEDS: NICOTINE PATCH 14 MG/24 HR PATCH.TD24 TOP (17:51)
[2025-01-11 18:13] VITALS: PULSE 77; RESP 18; O2SAT 100
[2025-01-11 18:23] VITALS: BP 121/91; PULSE 71; RESP 18; TEMP 36.9; O2SAT 100
[2025-01-11] MEDS: PHENobarbital Inj 130 MG, SODIUM CHLORIDE 0.9% FLUSH 12 ML IVP (18:23)
[2025-01-11 20:00] VITALS: BP 116/87; PULSE 81; RESP 16; O2SAT 100
--- NOTE | 2025-01-11 21:21 | PC.NURSE ---
REPORT GIVEN TO FLOOR NURSE SUSAN
[2025-01-11 21:40] VITALS: BP 122/89; PULSE 62; RESP 15; TEMP 36; O2SAT 100
[2025-01-11] MEDS: THIAMINE 100 MG TABLET PO (22:35)
[2025-01-11] MEDS: FOLIC ACID 1 MG TABLET PO (22:35)
[2025-01-12] VITALS (9 sets, daily range): BP systolic 105–123; BP diastolic 71–93; PULSE 57–82; RESP 12–19; TEMP 35.8–36.3; O2SAT 97–100; BMI 17.2
[2025-01-12 06:12] LABS: Basophils # (Auto) 0.0 Thou/mm3 (0.0-0.2); Basophils % (Auto) 1 % (0-2.5); Eosinophils # (Auto) 0.1 Thou/mm3 (0.0-0.5); Eosinophils % (Auto) 2 % (0-10); Hematocrit 35.9 % (41.0-53.0); Hemoglobin 12.1 g/dL (13.5-16.0); Immature Granulocytes Auto 0.06 Thou/mm3 (0.00-0.00); Lymphocytes # (Auto) 2.1 Thou/mm3 (1.0-4.8); Lymphocytes % (Auto) 32 % (10-50); Mean Corpuscular HGB Conc 33.7 g/dl (31.0-37.0); Mean Corpuscular Hemoglobin 30.0 pg (25.0-35.0); Mean Corpuscular Volume 89 fL (80-100); Monocytes # (Auto) 0.3 Thou/mm3 (0.0-0.8); Monocytes % (Auto) 5 % (0-12); Neutrophils # (Auto) 3.9 Thou/mm3 (1.8-7.7); Neutrophils % (Auto) 60 % (37-80); Nucleated Red Blood Cell # 0.00 Thou/mm3 (0.00-0.00); Nucleated Red Blood Cell % 0 /100 WBC (0); Platelet Count 138 Thou/mm3 (140-440); RDW Standard Deviation 41.7 fL (35.1-43.9); Red Blood Count 4.03 Miln/mm3 (4.50-5.90); White Blood Count 6.5 Thou/mm3 (3.8-10.6)
[2025-01-12 06:35] LABS: Alanine Aminotransferase 221 U/L (10-49); Albumin, Serum 3.8 gm/dL (3.5-5.0); Albumin/Globulin Ratio 2.5 (1.2-2.2); Alkaline Phosphatase 78 U/L (46-116); Anion Gap 8 (7-16); Aspartate Amino Transferase 287 U/L (0-34); BUN/Creatinine Ratio 12 Ratio (12-20); Bilirubin,Total 0.7 mg/dL (0.3-1.2); Blood Urea Nitrogen 7 mg/dL (9-23); Calcium 8.2 mg/dL (8.3-10.6); Calcium (Corrected) 8.4 mg/dL (8.5-10.1); Carbon Dioxide 26.6 mMol/L (20.0-31.0); Chloride 106 mMol/L (98-107); Creatinine (Component) 0.6 mg/dL (0.6-1.3); Estimated Creatinine Clearance 145.8 mL/min (>60); Globulin 1.5 gm/dL (2.3-3.5); Glucose 197 mg/dL (74-106); Magnesium 1.7 mg/dL (1.6-2.6); Osmolality,Calculated 284 (275-295); Phosphorous 4.7 mg/dL (2.4-5.1); Potassium 3.5 mMol/L (3.4-5.1); Sodium 141 mMol/L (136-145); Total Protein 5.3 gm/dL (5.7-8.2); eGFR > 60 See Note
[2025-01-12] MEDS: FOLIC ACID 1 MG TABLET PO ×2 (08:12→20:10)
[2025-01-12] MEDS: THIAMINE 100 MG TABLET PO ×2 (08:12→20:10)
[2025-01-12] MEDS: PANTOPRAZOLE 40 MG TABLET PO (08:12)
[2025-01-12] MEDS: NICOTINE PATCH 21 MG/24 HR PATCH.TD24 TOP (08:12)
[2025-01-12] MEDS: ENOXAPARIN SOD INJ 40 MG/0.4 ML SYRINGE SC (08:12)
--- NOTE | 2025-01-12 08:31 | ESPR_ITS ---
<Statement entered by Silas Eng MD - 01/12/25 17:36> Patient seen and examined at bedside. I discussed and supervised with the commissioner of internal revenue physician who took care of this patient. I personally saw and examined the patient. I agree with most of the assessment and plan. Plan of care discussed with attending Dr. Ariza. Silas Eng MD PGY-2 Documentation for date of: 01/12/25 Subjective Subjective Interval history: CIWA score overnight 2-8. Patient did not require additional benzos. Will go down on Librium from 25mg TID to BID. Reassess tomorrow for possible discharge. Patient felt well and no more episodes of bowel incontinence in the past 24hr. LFT increased compared to yesterday. US gallbladder 3 days ago showed normal gallbladder. Patient has previous history of transaminitis due to alcohol use disorder. Will continue trending the LFT tomorrow. Exam Vital Signs Temp Pulse Resp BP Pulse Ox O2 Del Method 96.9 F 57 L 12 120/76 100 Room Air 01/12/25 07:55 01/12/25 07:55 01/12/25 07:55 01/12/25 07:55 01/12/25 07:55 01/12/25 07:55 Narrative Exam General: No acute distress, malnourished, AAO x3 Eye: PERRL, EOMI, normal conjunctiva, no scleral icterus HENT: Normocephalic, atraumatic, hearing intact to conversation at normal volume, moist oral mucosa Neck: Supple, non-tender, no JVD, no lymphadenopathy Lungs: Non-labored respirations, symmetric chest rise, Clear to auscultate bilaterally, No wheezing, rhonchi, crackles Heart: Peripheral pulses intact bilaterally, Regular Rate and Rhythm. Abdomen: Soft, no tender to palpation, non-distended, no palpable masses Musculoskeletal: Intense tremor in bilaterally upper extremities, No cyanosis or edema, No visible joint swelling Skin: Skin is warm, dry, no rashes or lesions. Psychiatric: Cooperative, appropriate mood and affect, Awake and alert, not agitated Neuro: Cranial nerves II-XII grossly intact. Strength 5/5 throughout. Sensations intact to light touch. Objective Labs 01/12/25 04:19 01/12/25 04:19 Labs: Laboratory Results - last 24 hr 01/11/25 01/11/25 01/12/25 16:35 16:42 04:19 WBC 6.5 RBC 4.03 L Hgb 12.1 L Hct 35.9 L MCV 89 MCH 30.0 MCHC 33.7 RDW Std Deviation 41.7 Plt Count 138 L Neut % (Auto) 60 Lymph % (Auto) 32 [place] % (Auto) 5 Eos % (Auto) 2 Baso % (Auto) 1 Neut # (Auto) 3.9 Lymph # (Auto) 2.1 [place] # (Auto) 0.3 Eos # (Auto) 0.1 Baso # (Auto) 0.0 Immature Gran # (Auto) 0.06 H Absolute Nucleated RBC 0.00 Immature Gran % 1 H Nucleated RBC % 0 Sodium 141 Potassium 3.5 Chloride 106 Carbon Dioxide 26.6 Anion Gap 8 BUN 7 L Creatinine 0.6 Estim Creat Clear Calc 145.8 eGFR > 60 BUN/Creatinine Ratio 12 Glucose 197 H Calculated Osmolality 284 Calcium 8.2 L Corrected Calcium 8.4 L Phosphorus 4.7 Magnesium 1.7 Total Bilirubin 0.7 AST 287 H ALT 221 H Alkaline Phosphatase 78 Total Protein 5.3 L Albumin 3.8 Globulin 1.5 L Albumin/Globulin Ratio 2.5 H Urine Opiates Screen Negative Urine Fentanyl Screen Negative Ur Barbiturates Screen Negative U Amphetamin/Meth Scrn Negative U Benzodiazepines Scrn Positive A U Cocaine Metab Screen Negative U Marijuana (THC) Screen Negative Ethyl Alcohol < 3.0 Quality Measures Quality Measures VTE prophylaxis Assessment & Plan Assessment Current Active Medications: Generic Name Dose Route Start Last Admin Trade Name Freq PRN Reason Stop Dose Admin Acetaminophen 650 mg 01/11/25 17:09 Acetaminophen 325 Mg Tablet PO 02/10/25 17:08 Q6H PRN Fever >100.4 and pain 1-3 Chlordiazepoxide HCl 25 mg 01/12/25 21:00 Chlordiazepoxide Hcl 25 Mg Capsule PO 01/13/25 20:59 BID JOYA Dextrose 25 ml 01/12/25 08:26 Dextrose 50%-Water Inj 50 Ml Syringe IV 02/11/25 08:25 Q15MIN PRN BG 50-70 responsive npo pt Dextrose 50 ml 01/12/25 08:26 Dextrose 50%-Water Inj 50 Ml Syringe IV 02/11/25 08:25 Q15MIN PRN BG <50 OR BG <70 & pt unresponsive Diazepam 2.5 mg 01/11/25 17:14 Diazepam Inj 5 Mg/Ml Vial 2 Ml IVP 01/16/25 17:13 Q2HR PRN CIWA SCORE 8-13 Diazepam 5 mg 01/11/25 17:14 Diazepam Inj 5 Mg/Ml Vial 2 Ml IVP 01/16/25 17:13 Q2HR PRN CIWA SCORE 14-19 Diazepam 10 mg 01/11/25 17:14 Diazepam Inj 5 Mg/Ml Vial 2 Ml IVP 01/16/25 17:13 Q2HR PRN CIWA SCORE 20-25 Enoxaparin Sodium 40 mg 01/12/25 09:00 01/12/25 08:12 Enoxaparin Sod Inj 40 Mg/0.4 Ml Syringe SC 01/26/25 08:59 40 mg QDAY JOYA Administration Folic Acid 1 mg 01/11/25 21:00 01/12/25 08:12 Folic Acid 1 Mg Tablet PO 01/16/25 20:59 1 mg BID JOYA Administration Nicotine 21 mg 01/12/25 09:00 01/12/25 08:12 Nicotine Patch 21 Mg/24 Hr Patch.Td24 TOP 02/11/25 08:59 21 mg QDAY JOYA Administration Ondansetron HCl 4 mg 01/11/25 17:09 Ondansetron Inj 2 Mg/Ml Inj 2 Ml IVP 02/10/25 17:08 Q6H PRN NAUSEA OR VOMITING Protocol Oxycodone/Acetaminophen 1 tab 01/11/25 17:09 Oxycodone/Apap 5/325 Tablet PO 01/16/25 17:08 Q6H PRN PAIN SCALE 4-10(Mod-Sev Pantoprazole Sodium 40 mg 01/12/25 09:00 01/12/25 08:12 Pantoprazole 40 Mg Tablet PO 02/11/25 08:59 40 mg QDAY JOYA Administration Sennosides 1 tab 01/11/25 17:09 Senna Tablet PO 02/10/25 17:08 QDAY PRN constipation Protocol Thiamine HCl 100 mg 01/11/25 21:00 01/12/25 08:12 Thiamine 100 Mg Tablet PO 01/16/25 20:59 100 mg BID JOYA Administration Plan #Alcohol Use Disorder #Alcohol Withdrawal #History of Withdrawal Seizures 34-year-old male with past medical history type 2 diabetes on metformin 500 mg twice daily and alcohol use disorder with history of alcoholic seizure and multiple alcohol withdrawal admitted for alcohol withdrawal. UTOX positive benzos, negative alcohol, has been hospitalized for the past 2 days for alcohol withdrawal treatment at [place], left AMA 12 hours ago.? Plan: -[facility] protocol -Scheduled Librium PO 25mg BID -Thiamine 100mg bid -Folic acid 1mg bid -Monitor for breakthrough alcohol withdrawal symptoms (especially, seizures) -Seizure precautions -Aspiration precautions -Replete electrolytes as needed -Valium PRN per [facility] protocol #Abdominal pain Reported left lower quadrant pain with nausea, bowel incontinence x4 with orange fluid x2 today. Patient reported went home after leaving AMA from hospital, could not eat anything due to nausea, no vomiting. Reported 4 BM that was incontinence and patient could not make it to restroom. No reported of urinary incontinence. Denied numbness and tingling in bilateral extremities.? Plan: -Monitor for bowel movement -Zofran for nausea/vomiting #Type 2 Diabetes HA1c 7.9 Plan: -Glucose check q6hr -SSI q4hr -Daily weight, Strict I&Os -Dietitian referral -Diet carb consistent diet Health Maintenance: Code status: Full DVT prophylaxis: Lovenox GI prophylaxis: Protonix Diet: Carb consistent Gotti: None Lines: PIV Supplemental O2: None Disposition: Tele bed Assessment and plan discussed with my attending physician Dr. Ariza and Dr. Eng (PGY-2). Dr. Kurtz (PGY-1) ? fixed income trading vice president Attending Provider Attestation/Addendum I have seen and examined the patient. I was physically present for the marie portions of the services provided including history, physical exam, diagnosis, treatment plans and orders. I agree with assessment and plan of care as documented by residents. Even though this this note was carefully revised there may still be minor errors in impregnator and drier due to voice recognition software. Ileana Ariza MD
--- NOTE | 2025-01-12 11:42 | PC.SS ---
Addendum entered by Karey Ching 01/12/25 14:21: rounding note: Poss d/c home this weekend. Original Note: Patient is alert/oriented. Patient was able to verify demographics. Patient is independent with ADL's. No DME. Patient states he was just recently here and discharged home AMA. Patient has history of alcohol use. Patient states he lives alone. He last drank on the according to him and he typically drinks hard liquor. Patient has hx: of alcohol rehab in 2019. Patient states he's been sober since then up until recently when he lost his job. Patient states he's been stressed and may soon lose his home. Patient has hx; diabetes. Patient rides his bike throughout town. SS discussed transportation options in [facility]. PcP: [facility] and lat appt. was in May. Pharmacy: [facility]. Discharge plan is to return home. Resources provided. Alt medical decision maker: mother, Jyoti Lovett, .
[2025-01-12] MEDS: INSULIN LISPRO (AdmeLOG) 1 UNIT/0.01 ML UNIT 4 UNIT SC ×2 (11:58→17:16)
[2025-01-13] VITALS (7 sets, daily range): BP systolic 97–124; BP diastolic 65–74; PULSE 52–86; RESP 12–97; TEMP 35.9–36.3; O2SAT 97–99; BMI 17.4
[2025-01-13] MEDS: INSULIN LISPRO (AdmeLOG) 1 UNIT/0.01 ML UNIT 4 UNIT SC (01:08)
[2025-01-13] MEDS: MELATONIN 3 MG TABLET PO (01:08)
[2025-01-13 06:11] LABS: Basophils # (Auto) 0.0 Thou/mm3 (0.0-0.2); Basophils % (Auto) 1 % (0-2.5); Eosinophils # (Auto) 0.1 Thou/mm3 (0.0-0.5); Eosinophils % (Auto) 1 % (0-10); Hematocrit 36.8 % (41.0-53.0); Hemoglobin 12.6 g/dL (13.5-16.0); Immature Granulocytes Auto 0.11 Thou/mm3 (0.00-0.00); Lymphocytes # (Auto) 2.1 Thou/mm3 (1.0-4.8); Lymphocytes % (Auto) 32 % (10-50); Mean Corpuscular HGB Conc 34.2 g/dl (31.0-37.0); Mean Corpuscular Hemoglobin 30.4 pg (25.0-35.0); Mean Corpuscular Volume 89 fL (80-100); Monocytes # (Auto) 0.4 Thou/mm3 (0.0-0.8); Monocytes % (Auto) 7 % (0-12); Neutrophils # (Auto) 3.9 Thou/mm3 (1.8-7.7); Neutrophils % (Auto) 58 % (37-80); Nucleated Red Blood Cell # 0.00 Thou/mm3 (0.00-0.00); Nucleated Red Blood Cell % 0 /100 WBC (0); Platelet Count 126 Thou/mm3 (140-440); RDW Standard Deviation 40.5 fL (35.1-43.9); Red Blood Count 4.15 Miln/mm3 (4.50-5.90); White Blood Count 6.7 Thou/mm3 (3.8-10.6)
[2025-01-13 06:31] LABS: Alanine Aminotransferase 364 U/L (10-49); Albumin, Serum 3.9 gm/dL (3.5-5.0); Albumin/Globulin Ratio 2.3 (1.2-2.2); Alkaline Phosphatase 78 U/L (46-116); Anion Gap 9 (7-16); Aspartate Amino Transferase 420 U/L (0-34); BUN/Creatinine Ratio 11 Ratio (12-20); Bilirubin,Total 0.4 mg/dL (0.3-1.2); Blood Urea Nitrogen 8 mg/dL (9-23); Calcium 8.6 mg/dL (8.3-10.6); Calcium (Corrected) 8.7 mg/dL (8.5-10.1); Carbon Dioxide 26.9 mMol/L (20.0-31.0); Chloride 102 mMol/L (98-107); Creatinine (Component) 0.7 mg/dL (0.6-1.3); Estimated Creatinine Clearance 125.9 mL/min (>60); Globulin 1.7 gm/dL (2.3-3.5); Glucose 259 mg/dL (74-106); Magnesium 1.8 mg/dL (1.6-2.6); Osmolality,Calculated 282 (275-295); Phosphorous 5.8 mg/dL (2.4-5.1); Potassium 3.9 mMol/L (3.4-5.1); Sodium 138 mMol/L (136-145); Total Protein 5.6 gm/dL (5.7-8.2); eGFR > 60 See Note
--- NOTE | 2025-01-13 07:39 | XR_ITS ---
Examination: Abdomen sonogram, Limited Date and time of exam: January 13, 2025 1054 hours INDICATIONS: Elevated liver function tests on laboratory examination today Technique: Real-time juan scale transabdominal sonographic images of the upper abdomen obtained. Findings: Contracted gallbladder, no definite gallstones Common bile duct 0.40 cm Pancreatic head 1.4 cm Liver 13.8 cm no liver lesions Normal hepatopetal portal venous flow IMPRESSION: Recommend repeating the gallbladder portion of the study with fasting
--- NOTE | 2025-01-13 07:42 | ESPR_ITS ---
<Statement entered by Silas Eng MD - 01/13/25 16:42> Patient seen and examined at bedside. I discussed and supervised with the internal controls analyst physician who took care of this patient. I personally saw and examined the patient. I agree with most of the assessment and plan. Plan of care discussed with attending Dr. Ariza. Silas Eng MD PGY-2 Documentation for date of: 01/13/25 Subjective Subjective Interval history: Overnight patient received no additional Ativan.? CIWA has been 0-5. ?Decrease Librium 25 mg twice daily to daily. ?LFTs continue uptrending. ?Ordered ultrasound liver. Patient felt better today. Baseline anxiety, no hallucination, tremor significantly improved. Denied abdominal pain other than at insulin injection sites. Exam Vital Signs Temp Pulse Resp BP Pulse Ox O2 Del Method 96.8 F 76 12 107/72 99 Room Air 01/13/25 04:00 01/13/25 04:00 01/13/25 04:00 01/13/25 04:00 01/13/25 04:00 01/13/25 04:00 Narrative Exam General: No acute distress, malnourished, AAO x3 Eye: PERRL, EOMI, normal conjunctiva, no scleral icterus HENT: Normocephalic, atraumatic, hearing intact to conversation at normal volume, moist oral mucosa Neck: Supple, non-tender, no JVD, no lymphadenopathy Lungs: Non-labored respirations, symmetric chest rise, Clear to auscultate bilaterally, No wheezing, rhonchi, crackles Heart: Peripheral pulses intact bilaterally, Regular Rate and Rhythm. Abdomen: Soft, no tender to palpation, non-distended, no palpable masses Musculoskeletal: Intense tremor in bilaterally upper extremities, No cyanosis or edema, No visible joint swelling Skin: Skin is warm, dry, no rashes or lesions. Psychiatric: Cooperative, appropriate mood and affect, Awake and alert, not agitated Neuro: Cranial nerves II-XII grossly intact. Strength 5/5 throughout. Sensations intact to light touch. Objective Labs 01/13/25 05:20 01/13/25 05:20 Labs: Laboratory Results - last 24 hr 01/13/25 05:20 WBC 6.7 RBC 4.15 L Hgb 12.6 L Hct 36.8 L MCV 89 MCH 30.4 MCHC 34.2 RDW Std Deviation 40.5 Plt Count 126 L Neut % (Auto) 58 Lymph % (Auto) 32 [place] % (Auto) 7 Eos % (Auto) 1 Baso % (Auto) 1 Neut # (Auto) 3.9 Lymph # (Auto) 2.1 [place] # (Auto) 0.4 Eos # (Auto) 0.1 Baso # (Auto) 0.0 Immature Gran # (Auto) 0.11 H Absolute Nucleated RBC 0.00 Immature Gran % 2 H Nucleated RBC % 0 Sodium 138 Potassium 3.9 Chloride 102 Carbon Dioxide 26.9 Anion Gap 9 BUN 8 L Creatinine 0.7 Estim Creat Clear Calc 125.9 eGFR > 60 BUN/Creatinine Ratio 11 L Glucose 259 H D Calculated Osmolality 282 Calcium 8.6 Corrected Calcium 8.7 Phosphorus 5.8 H Magnesium 1.8 Total Bilirubin 0.4 AST 420 H ALT 364 H Alkaline Phosphatase 78 Total Protein 5.6 L Albumin 3.9 Globulin 1.7 L Albumin/Globulin Ratio 2.3 H Quality Measures Quality Measures VTE prophylaxis Assessment & Plan Assessment Current Active Medications: Generic Name Dose Route Start Last Admin Trade Name Freq PRN Reason Stop Dose Admin Acetaminophen 650 mg 01/11/25 17:09 Acetaminophen 325 Mg Tablet PO 02/10/25 17:08 Q6H PRN Fever >100.4 and pain 1-3 Chlordiazepoxide HCl 25 mg 01/13/25 09:00 Chlordiazepoxide Hcl 25 Mg Capsule PO 01/14/25 08:59 DAILY JOYA Dextrose 25 ml 01/12/25 08:26 Dextrose 50%-Water Inj 50 Ml Syringe IV 02/11/25 08:25 Q15MIN PRN BG 50-70 responsive npo pt Dextrose 50 ml 01/12/25 08:26 Dextrose 50%-Water Inj 50 Ml Syringe IV 02/11/25 08:25 Q15MIN PRN BG <50 OR BG <70 & pt unresponsive Dextrose 25 ml 01/13/25 00:45 Dextrose 50%-Water Inj 50 Ml Syringe IV 02/12/25 00:44 Q15MIN PRN BG 50-70 responsive npo pt Dextrose 50 ml 01/13/25 00:45 Dextrose 50%-Water Inj 50 Ml Syringe IV 02/12/25 00:44 Q15MIN PRN BG <50 OR BG <70 & pt unresponsive Diazepam 2.5 mg 01/11/25 17:14 Diazepam Inj 5 Mg/Ml Vial 2 Ml IVP 01/16/25 17:13 Q2HR PRN CIWA SCORE 8-13 Diazepam 5 mg 01/11/25 17:14 Diazepam Inj 5 Mg/Ml Vial 2 Ml IVP 01/16/25 17:13 Q2HR PRN CIWA SCORE 14-19 Diazepam 10 mg 01/11/25 17:14 Diazepam Inj 5 Mg/Ml Vial 2 Ml IVP 01/16/25 17:13 Q2HR PRN CIWA SCORE 20-25 Enoxaparin Sodium 40 mg 01/12/25 09:00 01/12/25 08:12 Enoxaparin Sod Inj 40 Mg/0.4 Ml Syringe SC 01/26/25 08:59 40 mg QDAY JOYA Administration Folic Acid 1 mg 01/11/25 21:00 01/12/25 20:10 Folic Acid 1 Mg Tablet PO 01/16/25 20:59 1 mg BID JOYA Administration Glucagon 1 mg 01/12/25 08:26 Glucagon Inj 1 Mg Vial IM Q15MIN PRN BG <70, and no IV access Glucagon 1 mg 01/13/25 00:45 Glucagon Inj 1 Mg Vial IM Q15MIN PRN BG <70, and no IV access Insulin Human Lispro 0 unit 01/13/25 11:30 Insulin Lispro (Admelog) 1 Unit/0.01 Ml Unit SC 02/12/25 11:29 ACHS JOYA Protocol Nicotine 21 mg 01/12/25 09:00 01/12/25 08:12 Nicotine Patch 21 Mg/24 Hr Patch.Td24 TOP 02/11/25 08:59 21 mg QDAY JOYA Administration Ondansetron HCl 4 mg 01/11/25 17:09 Ondansetron Inj 2 Mg/Ml Inj 2 Ml IVP 02/10/25 17:08 Q6H PRN NAUSEA OR VOMITING Protocol Oxycodone/Acetaminophen 1 tab 01/11/25 17:09 Oxycodone/Apap 5/325 Tablet PO 01/16/25 17:08 Q6H PRN PAIN SCALE 4-10(Mod-Sev Pantoprazole Sodium 40 mg 01/12/25 09:00 01/12/25 08:12 Pantoprazole 40 Mg Tablet PO 12/21/25 08:59 40 mg QDAY JOYA Administration Sennosides 1 tab 01/11/25 17:09 Senna Tablet PO 02/10/25 17:08 QDAY PRN constipation Protocol Thiamine HCl 100 mg 01/11/25 21:00 01/12/25 20:10 Thiamine 100 Mg Tablet PO 01/16/25 20:59 100 mg BID JOYA Administration Plan #Alcohol Use Disorder #Alcohol Withdrawal #History of Withdrawal Seizures 34-year-old male with past medical history type 2 diabetes on metformin 500 mg twice daily and alcohol use disorder with history of alcoholic seizure and multiple alcohol withdrawal admitted for alcohol withdrawal. UTOX positive benzos, negative alcohol, has been hospitalized for the past 2 days for alcohol withdrawal treatment at [place], left [place] 12 hours ago.? Plan: -[facility] protocol -Scheduled Librium PO 25mg QD -Thiamine 100mg bid -Folic acid 1mg bid -Monitor for breakthrough alcohol withdrawal symptoms (especially, seizures) -Seizure precautions -Aspiration precautions -Replete electrolytes as needed -Valium PRN per [facility] protocol #Acute liver injury AST [phone].? ALT [phone]. Patient has been asymptomatic, no abdominal pain. Denied nausea/vomiting. Plan: -Pending US liver #Abdominal pain Reported left lower quadrant pain with nausea, bowel incontinence x4 with orange fluid x2 today. Patient reported went home after leaving AMA from hospital, could not eat anything due to nausea, no vomiting. Reported 4 BM that was incontinence and patient could not make it to restroom. No reported of urinary incontinence. Denied numbness and tingling in bilateral extremities.? Plan: -Monitor for bowel movement -Zofran for nausea/vomiting #Type 2 Diabetes HA1c 7.9 Plan: -Glucose check q6hr -SSI q4hr -Daily weight, Strict I&Os -Dietitian referral -Diet carb consistent diet Health Maintenance: Code status: Full DVT prophylaxis: Lovenox GI prophylaxis: Protonix Diet: Carb consistent [place]: None Lines: PIV Supplemental O2: None Disposition: Tele bed Assessment and plan discussed with my attending physician Dr. Ariza and Dr. Eng (PGY-2). Dr. Kurtz (PGY-1) ? vice president diversity Attending Provider Attestation/Addendum I have seen and examined the patient. I was physically present for the marie portions of the services provided including history, physical exam, diagnosis, treatment plans and orders. I agree with assessment and plan of care as documented by residents. Even though this this note was carefully revised there may still be minor errors in product marketing director due to voice recognition software. Ileana Ariza MD
[2025-01-13] MEDS: NICOTINE PATCH 21 MG/24 HR PATCH.TD24 TOP (09:24)
[2025-01-13] MEDS: INSULIN LISPRO (AdmeLOG) 1 UNIT/0.01 ML UNIT 2 UNIT SC (09:24)
[2025-01-13] MEDS: THIAMINE 100 MG TABLET PO ×2 (09:25→20:25)
[2025-01-13] MEDS: FOLIC ACID 1 MG TABLET PO ×2 (09:25→20:25)
[2025-01-13] MEDS: PANTOPRAZOLE 40 MG TABLET PO (09:25)
[2025-01-13] MEDS: ENOXAPARIN SOD INJ 40 MG/0.4 ML SYRINGE SC (09:25)
[2025-01-13] MEDS: INSULIN LISPRO (AdmeLOG) 1 UNIT/0.01 ML UNIT SC ×3 (12:32→20:28)
--- NOTE | 2025-01-13 14:27 | PC.SS ---
Rounding: LFTs up trending, DC plan home
[2025-01-14] VITALS (9 sets, daily range): BP systolic 97–118; BP diastolic 56–83; PULSE 69–84; RESP 14–99; TEMP 36–36.4; O2SAT 96–99; BMI 17.2
[2025-01-14 05:49] LABS: Basophils # (Auto) 0.1 Thou/mm3 (0.0-0.2); Basophils % (Auto) 1 % (0-2.5); Eosinophils # (Auto) 0.1 Thou/mm3 (0.0-0.5); Eosinophils % (Auto) 1 % (0-10); Hematocrit 39.5 % (41.0-53.0); Hemoglobin 13.5 g/dL (13.5-16.0); Immature Granulocytes Auto 0.14 Thou/mm3 (0.00-0.00); Lymphocytes # (Auto) 2.7 Thou/mm3 (1.0-4.8); Lymphocytes % (Auto) 40 % (10-50); Mean Corpuscular HGB Conc 34.2 g/dl (31.0-37.0); Mean Corpuscular Hemoglobin 30.5 pg (25.0-35.0); Mean Corpuscular Volume 89 fL (80-100); Monocytes # (Auto) 0.7 Thou/mm3 (0.0-0.8); Monocytes % (Auto) 10 % (0-12); Neutrophils # (Auto) 3.1 Thou/mm3 (1.8-7.7); Neutrophils % (Auto) 46 % (37-80); Nucleated Red Blood Cell # 0.00 Thou/mm3 (0.00-0.00); Nucleated Red Blood Cell % 0 /100 WBC (0); Platelet Count 142 Thou/mm3 (140-440); RDW Standard Deviation 41.2 fL (35.1-43.9); Red Blood Count 4.43 Miln/mm3 (4.50-5.90); White Blood Count 6.8 Thou/mm3 (3.8-10.6)
[2025-01-14 06:18] LABS: Alanine Aminotransferase 481 U/L (10-49); Albumin, Serum 4.4 gm/dL (3.5-5.0); Albumin/Globulin Ratio 2.4 (1.2-2.2); Alkaline Phosphatase 82 U/L (46-116); Anion Gap 8 (7-16); Aspartate Amino Transferase 460 U/L (0-34); BUN/Creatinine Ratio 11 Ratio (12-20); Bilirubin,Total 0.4 mg/dL (0.3-1.2); Blood Urea Nitrogen 9 mg/dL (9-23); Calcium 9.3 mg/dL (8.3-10.6); Calcium (Corrected) 9.3 mg/dL (8.5-10.1); Carbon Dioxide 27.6 mMol/L (20.0-31.0); Chloride 101 mMol/L (98-107); Creatinine (Component) 0.8 mg/dL (0.6-1.3); Estimated Creatinine Clearance 109.4 mL/min (>60); Globulin 1.8 gm/dL (2.3-3.5); Glucose 232 mg/dL (74-106); Magnesium 1.8 mg/dL (1.6-2.6); Osmolality,Calculated 279 (275-295); Phosphorous 5.9 mg/dL (2.4-5.1); Potassium 4.3 mMol/L (3.4-5.1); Sodium 137 mMol/L (136-145); Total Protein 6.2 gm/dL (5.7-8.2); eGFR > 60 See Note
[2025-01-14] MEDS: INSULIN LISPRO (AdmeLOG) 1 UNIT/0.01 ML UNIT SC ×4 (07:30→20:17)
--- NOTE | 2025-01-14 07:37 | ESPR_ITS ---
<Statement entered by Silas Eng MD - 01/14/25 14:26> Patient seen and examined at bedside. I discussed and supervised with the commercial intern physician who took care of this patient. I personally saw and examined the patient. I agree with most of the assessment and plan. Held librium and lovenox, will use mobility for DVT prophylaxis. Liver enzymes uptrended, consulted Dr. Estrada. Plan of care discussed with attending Dr. Ariza. Silas Eng MD PGY-2 Documentation for date of: 01/14/25 Subjective Subjective Interval history: Patient felt well today, no abdominal pain other than at the insulin injection site. Overnight CIWA 1?4.? No Ativan required overnight.? Librium decreased to 25 mg daily. ?LFT continues to uptrend.? Liver ultrasound showed contracted gallbladder, no definite gallstones, common bile duct not dilated, no liver lesions, recommending repeating gallbladder portion of the study with fasting. Howeer, Alp and bilirubin are normal. No further imagings indicated at this time. GI, Dr. Estrada, consulted for worsening LFT with no other symptoms, appreciate recs. Pending hepatitis panel. Exam Vital Signs Temp Pulse Resp BP Pulse Ox O2 Del Method 97.2 F 69 14 98/73 99 Room Air 01/14/25 04:00 01/14/25 04:00 01/14/25 04:00 01/14/25 04:00 01/14/25 04:00 01/14/25 04:00 Narrative Exam General: No acute distress, malnourished, AAO x3 Eye: PERRL, EOMI, normal conjunctiva, no scleral icterus HENT: Normocephalic, atraumatic, hearing intact to conversation at normal volume, moist oral mucosa Neck: Supple, non-tender, no JVD, no lymphadenopathy Lungs: Non-labored respirations, symmetric chest rise, Clear to auscultate bilaterally, No wheezing, rhonchi, crackles Heart: Peripheral pulses intact bilaterally, Regular Rate and Rhythm. Abdomen: Soft, no tender to palpation, non-distended, no palpable masses Musculoskeletal: Intense tremor in bilaterally upper extremities, No cyanosis or edema, No visible joint swelling Skin: Skin is warm, dry, no rashes or lesions. Psychiatric: Cooperative, appropriate mood and affect, Awake and alert, not agitated Neuro: Cranial nerves II-XII grossly intact. Strength 5/5 throughout. Sensations intact to light touch. Objective Labs 01/15/25 05:09 01/15/25 05:09 Labs: Laboratory Results - last 24 hr 01/14/25 04:58 WBC 6.8 RBC 4.43 L Hgb 13.5 Hct 39.5 L MCV 89 MCH 30.5 MCHC 34.2 RDW Std Deviation 41.2 Plt Count 142 Neut % (Auto) 46 Lymph % (Auto) 40 [place] % (Auto) 10 Eos % (Auto) 1 Baso % (Auto) 1 Neut # (Auto) 3.1 Lymph # (Auto) 2.7 [place] # (Auto) 0.7 Eos # (Auto) 0.1 Baso # (Auto) 0.1 Immature Gran # (Auto) 0.14 H Absolute Nucleated RBC 0.00 Immature Gran % 2 H Nucleated RBC % 0 Sodium 137 Potassium 4.3 Chloride 101 Carbon Dioxide 27.6 Anion Gap 8 BUN 9 Creatinine 0.8 Estim Creat Clear Calc 109.4 eGFR > 60 BUN/Creatinine Ratio 11 L Glucose 232 H Calculated Osmolality 279 Calcium 9.3 Corrected Calcium 9.3 Phosphorus 5.9 H Magnesium 1.8 Total Bilirubin 0.4 AST 460 H ALT 481 H Alkaline Phosphatase 82 Total Protein 6.2 Albumin 4.4 D Globulin 1.8 L Albumin/Globulin Ratio 2.4 H Quality Measures Quality Measures VTE prophylaxis Assessment & Plan Assessment Current Active Medications: Generic Name Dose Route Start Last Admin Trade Name Herbert PRN Reason Stop Dose Admin Acetaminophen 650 mg 01/11/25 17:09 Acetaminophen 325 Mg Tablet PO 02/10/25 17:08 Q6H PRN Fever >100.4 and pain 1-3 Dextrose 25 ml 01/12/25 08:26 Dextrose 50%-Water Inj 50 Ml Syringe IV 02/11/25 08:25 Q15MIN PRN BG 50-70 responsive npo pt Dextrose 50 ml 01/12/25 08:26 Dextrose 50%-Water Inj 50 Ml Syringe IV 02/11/25 08:25 Q15MIN PRN BG <50 OR BG <70 & pt unresponsive Diazepam 2.5 mg 01/11/25 17:14 Diazepam Inj 5 Mg/Ml Vial 2 Ml IVP 01/16/25 17:13 Q2HR PRN CIWA SCORE 8-13 Diazepam 5 mg 01/11/25 17:14 Diazepam Inj 5 Mg/Ml Vial 2 Ml IVP 01/16/25 17:13 Q2HR PRN CIWA SCORE 14-19 Diazepam 10 mg 01/11/25 17:14 Diazepam Inj 5 Mg/Ml Vial 2 Ml IVP 01/16/25 17:13 Q2HR PRN CIWA SCORE 20-25 Enoxaparin Sodium 40 mg 01/12/25 09:00 01/13/25 09:25 Enoxaparin Sod Inj 40 Mg/0.4 Ml Syringe SC 01/26/25 08:59 40 mg QDAY JOYA Administration Folic Acid 1 mg 01/11/25 21:00 01/13/25 20:25 Folic Acid 1 Mg Tablet PO 01/16/25 20:59 1 mg BID JOYA Administration Glucagon 1 mg 01/12/25 08:26 Glucagon Inj 1 Mg Vial IM Q15MIN PRN BG <70, and no IV access Insulin Human Lispro 0 unit 01/13/25 11:30 01/14/25 07:30 Insulin Lispro (Admelog) 1 Unit/0.01 Ml Unit SC 02/12/25 11:29 2 unit ACHS JOYA Administration Protocol Nicotine 21 mg 01/12/25 09:00 01/13/25 09:24 Nicotine Patch 21 Mg/24 Hr Patch.Td24 TOP 02/11/25 08:59 21 mg QDAY JOYA Administration Ondansetron HCl 4 mg 01/11/25 17:09 Ondansetron Inj 2 Mg/Ml Inj 2 Ml IVP 02/10/25 17:08 Q6H PRN NAUSEA OR VOMITING Protocol Oxycodone/Acetaminophen 1 tab 01/11/25 17:09 Oxycodone/Apap 5/325 Tablet PO 01/16/25 17:08 Q6H PRN PAIN SCALE 4-10(Mod-Sev Pantoprazole Sodium 40 mg 01/12/25 09:00 01/13/25 09:25 Pantoprazole 40 Mg Tablet PO 02/11/25 08:59 40 mg QDAY JOYA Administration Sennosides 1 tab 01/11/25 17:09 Senna Tablet PO 02/10/25 17:08 QDAY PRN constipation Protocol Thiamine HCl 100 mg 01/11/25 21:00 01/13/25 20:25 Thiamine 100 Mg Tablet PO 01/16/25 20:59 100 mg BID JOYA Administration Plan #Alcohol Use Disorder #Alcohol Withdrawal #History of Withdrawal Seizures 34-year-old male with past medical history type 2 diabetes on metformin 500 mg twice daily and alcohol use disorder with history of alcoholic seizure and multiple alcohol withdrawal admitted for alcohol withdrawal. UTOX positive benzos, negative alcohol, has been hospitalized for the past 2 days for alcohol withdrawal treatment at [facility], left AMA 12 hours ago.? Plan: -[facility] protocol -Discontinue Librium PO 25mg QD -Thiamine 100mg bid -Folic acid 1mg bid -Monitor for breakthrough alcohol withdrawal symptoms (especially, seizures) -Seizure precautions -Aspiration precautions -Replete electrolytes as needed -Valium PRN per [facility] protocol #Acute liver injury AST [id number].? ALT [phone]. Patient has been asymptomatic, no abdominal pain. Denied nausea/vomiting. Liver ultrasound showed contracted gallbladder, no definite gallstones, common bile duct not dilated, no liver lesions, recommending repeating gallbladder portion of the study with fasting. Howeer, Alp and bilirubin are normal. No further imagings indicated at this time. Plan: -GI, Dr. Estrada, consulted for worsening LFT with no other symptoms, appreciate recs. -Pending hepatitis panel. #Abdominal pain Reported left lower quadrant pain with nausea, bowel incontinence x4 with orange fluid x2 today. Patient reported went home after leaving AMA from hospital, could not eat anything due to nausea, no vomiting. Reported 4 BM that was incontinence and patient could not make it to restroom. No reported of urinary incontinence. Denied numbness and tingling in bilateral extremities.? Plan: -Monitor for bowel movement -Zofran for nausea/vomiting #Type 2 Diabetes HA1c 7.9 Plan: -Glucose check q6hr -SSI q4hr -Daily weight, Strict I&Os -Dietitian referral -Diet carb consistent diet Health Maintenance: Code status: Full DVT prophylaxis: None GI prophylaxis: Protonix Diet: Carb consistent Gotti: None Lines: PIV Supplemental O2: None Disposition: Tele bed Assessment and plan discussed with my attending physician Dr. Ariza and Dr. Eng (PGY-2). Dr. Kurtz (PGY-1) ? rn residential Attending Provider Attestation/Addendum I have seen and examined the patient. I was physically present for the marie portions of the services provided including history, physical exam, diagnosis, treatment plans and orders. I agree with assessment and plan of care as documented by residents. Even though this this note was carefully revised there may still be minor errors in sprayer insecticide due to voice recognition software. Ileana Ariza MD
[2025-01-14 08:18] LABS: Creatine Kinase 60 U/L (34-171)
[2025-01-14] MEDS: ENOXAPARIN SOD INJ 40 MG/0.4 ML SYRINGE SC (08:32)
[2025-01-14] MEDS: THIAMINE 100 MG TABLET PO ×2 (08:33→20:17)
[2025-01-14] MEDS: FOLIC ACID 1 MG TABLET PO ×2 (08:33→20:17)
[2025-01-14] MEDS: PANTOPRAZOLE 40 MG TABLET PO (08:33)
[2025-01-14] MEDS: NICOTINE PATCH 21 MG/24 HR PATCH.TD24 TOP (09:00)
[2025-01-14] MEDS: INSULIN DEGLUDEC 5 UNIT/0.05 ML (PER 5 UNITS) 10 UNIT SC (11:11)
--- NOTE | 2025-01-14 14:39 | PC.SS ---
Rounding: LFTs up trending, DC plan home
--- NOTE | 2025-01-14 16:23 | PD.IMCONS ---
HPI Data of Consult Requesting Physician: Ileana Ariza MD Primary Care Provider: Physician No Primary/Family Consult Narrative Reason for consult: Abnormal LFTs primarily transaminitis History of present illness: 34 years old male who has a history of alcohol abuse was admitted with alcohol withdrawal following [facility] protocol His transaminases have been getting worse with the latest AST ALT 460 and 481 with normal bilirubin of 0.4 and alk phos of 82 01/13/2025 liver ultrasound shows contracted gallbladder 01/09/2025 abdominal ultrasound showed 17.5 cm liver size hepatomegaly fatty infiltration CT scan of the abdomen pelvis with contrast showed hepatomegaly at 18 cm and no other lesions Patient has a history of diabetes mellitus type 2 alcohol use disorder and bilateral hip replacements cc:: cc: Ileana Ariza MD Past Medical History Surgical History OTHER SURGICAL HX: As in the history of present illness Meds Home Medications and Allergies Home Medications ?Medication ?Instructions ?Recorded ?Confirmed ?Type gabapentin 300 mg capsule 300 mg PO HS 08/27/23 01/12/25 History metformin 500 mg tablet 500 mg PO BID 01/09/25 01/12/25 History Allergies Allergy/AdvReac Type Severity Reaction Status Date / Time No Known Allergies Allergy Verified 02/23/24 14:54 Exam Vital Signs Temp Pulse Resp BP Pulse Ox O2 Del Method 97.0 F 84 17 107/76 99 Room Air 01/14/25 12:40 01/14/25 12:40 01/14/25 12:40 01/14/25 12:40 01/14/25 12:40 01/14/25 12:40 Constitutional Comments: Chronically ill-appearing Routine Respiratory Exam Comments: Normal to auscultation Routine Abdominal Exam Comments: Soft nontender Results Labs 01/14/25 04:58 01/14/25 04:58 Labs: Short CBC 01/14/25 Range/Units 04:58 WBC 6.8 (3.8-10.6) Thou/mm3 Hgb 13.5 (13.5-16.0) g/dL Hct 39.5 L (41.0-53.0) % Plt Count 142 (140-440) Thou/mm3 BMP 01/14/25 04:58 Sodium 137 Potassium 4.3 Chloride 101 Carbon Dioxide 27.6 BUN 9 Creatinine 0.8 Glucose 232 H Calcium 9.3 Cardiac Enzymes 01/14/25 Range/Units 04:58 Total Creatine Kinase 60 D (34-171) U/L Liver Function 01/14/25 Range/Units 04:58 Total Bilirubin 0.4 (0.3-1.2) mg/dL AST 460 H (0-34) U/L ALT 481 H (10-49) U/L Alkaline Phosphatase 82 (46-116) U/L Albumin 4.4 D (3.5-5.0) gm/dL Assessment and Plan Additional Assessment & Plan Additional Plan: # Transaminitis most related to alcoholic hepatitis and alcohol use disorder But other causes of chronic active hepatitis needs to be rule out Order complete workup for the abnormal LFTs Will follow the patient Thank you very much for the opportunity to participate in the care of this patient # Persistent nausea in the setting of chronic liver disease If nausea does not improve We will consider upper endoscopy prior to discharge to possibly also prophylactically do band ligation of the esophageal varices if they exist in the setting of chronic liver disease
--- NOTE | 2025-01-14 16:42 | PC.NURSE ---
Per lab. Samples for gastroenterology consult are to be collected with tomorrow morning's lab draw. Dr. Sean cunningham.
[2025-01-15] VITALS (16 sets, daily range): BP systolic 92–109; BP diastolic 55–74; PULSE 54–82; RESP 12–99; TEMP 36.1–36.8; O2SAT 94–100; BMI 17.2; BMI 17.3
[2025-01-15 05:45] LABS: Basophils # (Auto) 0.0 Thou/mm3 (0.0-0.2); Basophils % (Auto) 1 % (0-2.5); Eosinophils # (Auto) 0.1 Thou/mm3 (0.0-0.5); Eosinophils % (Auto) 2 % (0-10); Hematocrit 37.0 % (41.0-53.0); Hemoglobin 12.8 g/dL (13.5-16.0); Immature Granulocytes Auto 0.13 Thou/mm3 (0.00-0.00); Lymphocytes # (Auto) 2.4 Thou/mm3 (1.0-4.8); Lymphocytes % (Auto) 40 % (10-50); Mean Corpuscular HGB Conc 34.6 g/dl (31.0-37.0); Mean Corpuscular Hemoglobin 30.9 pg (25.0-35.0); Mean Corpuscular Volume 89 fL (80-100); Monocytes # (Auto) 0.7 Thou/mm3 (0.0-0.8); Monocytes % (Auto) 12 % (0-12); Neutrophils # (Auto) 2.6 Thou/mm3 (1.8-7.7); Neutrophils % (Auto) 43 % (37-80); Nucleated Red Blood Cell # 0.00 Thou/mm3 (0.00-0.00); Nucleated Red Blood Cell % 0 /100 WBC (0); Platelet Count 178 Thou/mm3 (140-440); RDW Standard Deviation 42.0 fL (35.1-43.9); Red Blood Count 4.14 Miln/mm3 (4.50-5.90); White Blood Count 5.9 Thou/mm3 (3.8-10.6)
[2025-01-15 06:07] LABS: Iron 48 mcg/dL (65-175); Percent Iron Saturation 15 % (20-55); Total Iron Binding Capacity 317 mcg/dL (250-425); Unsaturated Iron Binding 269 (225-295)
[2025-01-15 06:19] LABS: Alanine Aminotransferase 438 U/L (10-49); Albumin, Serum 4.3 gm/dL (3.5-5.0); Albumin/Globulin Ratio 2.5 (1.2-2.2); Alkaline Phosphatase 75 U/L (46-116); Anion Gap 8 (7-16); Aspartate Amino Transferase 334 U/L (0-34); BUN/Creatinine Ratio 17 Ratio (12-20); Bilirubin,Total 0.3 mg/dL (0.3-1.2); Blood Urea Nitrogen 12 mg/dL (9-23); Calcium 9.2 mg/dL (8.3-10.6); Calcium (Corrected) 9.2 mg/dL (8.5-10.1); Carbon Dioxide 30.0 mMol/L (20.0-31.0); Chloride 103 mMol/L (98-107); Creatinine (Component) 0.7 mg/dL (0.6-1.3); Estimated Creatinine Clearance 125.0 mL/min (>60); Globulin 1.7 gm/dL (2.3-3.5); Glucose 139 mg/dL (74-106); Magnesium 1.9 mg/dL (1.6-2.6); Osmolality,Calculated 282 (275-295); Phosphorous 5.8 mg/dL (2.4-5.1); Potassium 3.9 mMol/L (3.4-5.1); Sodium 141 mMol/L (136-145); Total Protein 6.0 gm/dL (5.7-8.2); eGFR > 60 See Note
[2025-01-15 07:13] LABS: Hepatitis A Antibody IgM Non Reactive (Non React); Hepatitis B Core Antibody IgM Non Reactive (Non React); Hepatitis B Surface Antigen Non Reactive (Non React); Hepatitis C Antibody Non Reactive (Non React)
[2025-01-15] MEDS: NICOTINE PATCH 21 MG/24 HR PATCH.TD24 TOP (08:11)
[2025-01-15] MEDS: FOLIC ACID 1 MG TABLET PO (08:12)
[2025-01-15] MEDS: PANTOPRAZOLE 40 MG TABLET PO (08:12)
[2025-01-15] MEDS: THIAMINE 100 MG TABLET PO (08:12)
[2025-01-15] MEDS: INSULIN DEGLUDEC 5 UNIT/0.05 ML (PER 5 UNITS) 10 UNIT SC (08:13)
--- NOTE | 2025-01-15 09:08 | PC.SS ---
Follow up note: Possible d/c today. Pt will return home upon dc.
[2025-01-15] MEDS: SEVELAMER CARBONATE 800 MG TABLET PO (10:11)
--- NOTE | 2025-01-15 12:48 | PC.SS ---
Follow up note: Labs are down trending. Pt is d/c home for today.
--- NOTE | 2025-01-15 13:49 | PC.NURSE ---
PT TRANSFER VIA GURNEY FOR EGD PROCEDURE, ACCOMPANIED BY ELIS HUBER. PT ALERT AND ORIENTED X4.
[2025-01-15] MEDS: SODIUM CHLORIDE 0.9% 100 ML IV (14:05)
--- NOTE | 2025-01-15 14:20 | SUR.PHASEI ---
1420: Pt. AAOx4, vitals stable, breathing unlabored, no complaint of pain or nausea, no dressing in place, no active bleed noted, report received from Harika HUBER.
--- NOTE | 2025-01-15 15:10 | SUR.PHASEI ---
1510: Pt. AAOx4, vitals stable, breathing unlabored, no complaint of pain or nausea, no dressing in place, no active bleed noted, gave report to Rosie HUBER prior to transfer to room 374.
--- NOTE | 2025-01-15 15:40 | PD.RESPRO ---
Documentation for date of: 01/15/25 Subjective Subjective Interval history: Patient was seen and examined at bedside. No acute events took place overnight. Patient felt well today, no abdominal pain other than at the insulin injection site. Patient in denial of headaches, nausea vomiting, lightheadedness, chest pain, shortness of breath, diaphoresis, hallucinations auditory or visual, abnormal sensation, itching. Although admits to tremors, he attributes these to blood draw that happen earlier in the morning. Calculated CIWA of 0-1. GI was consulted for transaminitis, who suggested that this finding is most likely to be related to alcoholic hepatitis and alcohol use disorder. Altogether patient received 14 units of insulin lispro yesterday and insulin degludec 10 units. In the setting of alcoholic hepatitis, GI recommended EGD study for assessment of esophageal varices and therapeutic ligation. Exam Vital Signs Temp Pulse Resp BP Pulse Ox O2 Del Method O2 Flow Rate 97.5 F 65 12 97/66 98 Room Air 3 01/15/25 15:00 01/15/25 15:00 01/15/25 15:00 01/15/25 15:00 01/15/25 15:00 01/15/25 11:50 01/15/25 14:10 Narrative Exam General: No acute distress, malnourished, AAO x3 Eye: PERRL, EOMI, normal conjunctiva, no scleral icterus HENT: Normocephalic, atraumatic, hearing intact to conversation at normal volume, moist oral mucosa Neck: Supple, non-tender, no JVD, no lymphadenopathy Lungs: Non-labored respirations, symmetric chest rise, Clear to auscultate bilaterally, No wheezing, rhonchi, crackles Heart: Peripheral pulses intact bilaterally, Regular Rate and Rhythm. Abdomen: Soft, no tender to palpation, non-distended, no palpable masses Musculoskeletal: Intense tremor in bilaterally upper extremities, No cyanosis or edema, No visible joint swelling Skin: Skin is warm, dry, no rashes or lesions. Psychiatric: Cooperative, appropriate mood and affect, Awake and alert, not agitated Neuro: Cranial nerves II-XII grossly intact. Strength 5/5 throughout. Sensations intact to light touch. Objective Labs 01/15/25 05:09 01/15/25 05:09 Labs: Laboratory Results - last 24 hr 01/15/25 01/15/25 05:09 07:32 WBC 5.9 RBC 4.14 L Hgb 12.8 L Hct 37.0 L MCV 89 MCH 30.9 MCHC 34.6 RDW Std Deviation 42.0 Plt Count 178 D Neut % (Auto) 43 Lymph % (Auto) 40 [place] % (Auto) 12 Eos % (Auto) 2 Baso % (Auto) 1 Neut # (Auto) 2.6 Lymph # (Auto) 2.4 [place] # (Auto) 0.7 Eos # (Auto) 0.1 Baso # (Auto) 0.0 Immature Gran # (Auto) 0.13 H Absolute Nucleated RBC 0.00 Immature Gran % 2 H Nucleated RBC % 0 Sodium 141 Potassium 3.9 Chloride 103 Carbon Dioxide 30.0 Anion Gap 8 BUN 12 Creatinine 0.7 Estim Creat Clear Calc 125.0 eGFR > 60 BUN/Creatinine Ratio 17 Glucose 139 H D Calculated Osmolality 282 Calcium 9.2 Corrected Calcium 9.2 Phosphorus 5.8 H Magnesium 1.9 Iron 48 L TIBC 317 Iron Saturation 15 L Unsat Iron Binding 269 Total Bilirubin 0.3 AST 334 H ALT 438 H Alkaline Phosphatase 75 Total Protein 6.0 Albumin 4.3 Globulin 1.7 L Albumin/Globulin Ratio 2.5 H Hepatitis A IgM Ab Non Reactive Hep Bs Antigen Non Reactive Hep B Core IgM Ab Non Reactive Hepatitis C Antibody Non Reactive Misc Test Result Cancelled Quality Measures Quality Measures VTE prophylaxis Assessment & Plan Assessment Current Active Medications: Generic Name Dose Route Start Last Admin Trade Name Freq PRN Reason Stop Dose Admin Acetaminophen 650 mg 01/11/25 17:09 Acetaminophen 325 Mg Tablet PO 02/10/25 17:08 Q6H PRN Fever >100.4 and pain 1-3 Dextrose 25 ml 01/12/25 08:26 Dextrose 50%-Water Inj 50 Ml Syringe IV 02/11/25 08:25 Q15MIN PRN BG 50-70 responsive npo pt Dextrose 50 ml 01/12/25 08:26 Dextrose 50%-Water Inj 50 Ml Syringe IV 02/11/25 08:25 Q15MIN PRN BG <50 OR BG <70 & pt unresponsive Diazepam 2.5 mg 01/11/25 17:14 Diazepam Inj 5 Mg/Ml Vial 2 Ml IVP 01/16/25 17:13 Q2HR PRN CIWA SCORE 8-13 Diazepam 5 mg 01/11/25 17:14 Diazepam Inj 5 Mg/Ml Vial 2 Ml IVP 01/16/25 17:13 Q2HR PRN CIWA SCORE 14-19 Folic Acid 1 mg 01/11/25 21:00 01/15/25 08:12 Folic Acid 1 Mg Tablet PO 01/16/25 20:59 1 mg BID JOYA Administration Glucagon 1 mg 01/12/25 08:26 Glucagon Inj 1 Mg Vial IM Q15MIN PRN BG <70, and no IV access Insulin Degludec 10 unit 01/14/25 10:15 01/15/25 08:13 Insulin Degludec 5 Unit/0.05 Ml (Per 5 Units) SC 02/13/25 10:14 10 unit QDAY JOYA Administration Insulin Human Lispro 0 unit 01/14/25 10:06 01/15/25 11:54 Insulin Lispro (Admelog) 1 Unit/0.01 Ml Unit SC 02/12/25 11:29 Not Given ACHS JOYA Protocol Nicotine 21 mg 01/12/25 09:00 01/15/25 08:11 Nicotine Patch 21 Mg/24 Hr Patch.Td24 TOP 02/11/25 08:59 21 mg QDAY JOYA Administration Ondansetron HCl 4 mg 01/11/25 17:09 Ondansetron Inj 2 Mg/Ml Inj 2 Ml IVP 02/10/25 17:08 Q6H PRN NAUSEA OR VOMITING Protocol Pantoprazole Sodium 40 mg 01/12/25 09:00 01/15/25 08:12 Pantoprazole 40 Mg Tablet PO 02/11/25 08:59 40 mg QDAY JOYA Administration Sennosides 1 tab 01/11/25 17:09 Senna Tablet PO 02/10/25 17:08 QDAY PRN constipation Protocol Thiamine HCl 100 mg 01/11/25 21:00 01/15/25 08:12 Thiamine 100 Mg Tablet PO 01/16/25 20:59 100 mg BID JOYA Administration Plan #Alcohol Use Disorder #Alcohol Withdrawal #History of Withdrawal Seizures 34-year-old male with past medical history type 2 diabetes on metformin 500 mg twice daily and alcohol use disorder with history of alcoholic seizure and multiple alcohol withdrawal admitted for alcohol withdrawal. UTOX positive benzos, negative alcohol, has been hospitalized for the past 2 days for alcohol withdrawal treatment at [place], [facility] 12 hours ago.? Plan: -CIWA protocol -Thiamine 100mg bid -Folic acid 1mg bid -Monitor for breakthrough alcohol withdrawal symptoms (especially, seizures) -Seizure precautions -Aspiration precautions -Replete electrolytes as needed -Valium PRN per CIWA protocol #Acute liver injury AST [id number].? ALT [phone]. Patient has been asymptomatic, no abdominal pain. Denied nausea/vomiting. Liver ultrasound showed contracted gallbladder, no definite gallstones, common bile duct not dilated, no liver lesions, recommending repeating gallbladder portion of the study with fasting. Howeer, Alp and bilirubin are normal. No further imagings indicated at this time. On 01/15/2025, AST 334, downtrended from 460 the day before and ALT 438 down from 481. Hepatitis panel was negative for hep A, B, and C Plan: -GI, Dr. Estrada, consulted, appreciate recs. - #Abdominal pain Reported left lower quadrant pain with nausea, bowel incontinence x4 with orange fluid x2 today. Patient reported went home after leaving AMA from hospital, could not eat anything due to nausea, no vomiting. Reported 4 BM that was incontinence and patient could not make it to restroom. No reported of urinary incontinence. Denied numbness and tingling in bilateral extremities.? Plan: -Monitor for bowel movement -Zofran for nausea/vomiting #Type 2 Diabetes HA1c 7.9 Plan: -Glucose check q6hr -SSI q4hr -Daily weight, Strict I&Os -Dietitian referral -Diet carb consistent diet Health Maintenance: Code status: Full DVT prophylaxis: None GI prophylaxis: Protonix Diet: Carb consistent Gotti: None Lines: PIV Supplemental O2: None Disposition: Tele bed This case was discussed with my attending physician, [doctor], and senior resident [resident]. Even though this this note was carefully revised there may still be minor errors in screen printing cloth spreader due to voice recognition software. Eric Kendall, DO PGY I
--- NOTE | 2025-01-15 16:57 | ESDS_ITS ---
<Statement entered by Haley Celaya DO - 01/16/25 08:09> I, Haley Celaya DO, attest that I was physically present for the marie portions of the service and evaluated the patient with the resident and I reviewed and discussed the case with the resident and agree with the resident's findings and plans of care as documented above <Statement entered by Amadeo Barrett MD - 01/16/25 05:32> Patient was seen and examined by me personally. I have reviewed the below documentation by the team resident and agree with its findings. Discharge plan was discussed with the attending, Dr. Haley Cedeno MD Internal Medicine, PGY-2 Planned Discharge Date 01/15/25 DS: Providers Provider Date of admission: 01/11/25 17:18 Primary care physician: Physician No Primary/Family Admitting Provider: Ileana Ariza MD Attending Provider on Admission: Ileana Ariza MD Consults: 01/14/25 15:25 Consult to Gastroenterology Routine Comment: Consulting Provider: Seven Estrada Attending Provider on DC: Eric Kendall DO Discharging Provider: Eric Kendall DO Anticipated date of discharge: 01/15/25 DS: Diagnosis Problem List Completed Was Problem List Reviewed/Reconciled?: Yes Hospital Course Hospital Course Hospital course: A 34-year-old male with a medical history of type 2 diabetes, bilateral hip replacement, alcohol use disorder, and a prior alcoholic seizure in 2019 presented on 01/11/2025 with left lower quadrant abdominal pain, nausea, and diarrhea for one day. He was admitted for alcohol withdrawal following a recent hospitalization on 01/09/2025 for alcohol withdrawal, from which he left against medical advice (AMA). On admission, labs showed WBC 14.3, Hgb 16.6, a left shift, platelets 332, glucose ranging from 430, A1c 7.9, direct bilirubin 0.4, total bilirubin 1.1, AST 310, ALT 285 (with a high of 192), alkaline phosphatase 71-106, lactic acid 5.1, and unremarkable amylase and lipase levels. Beta- hydroxybutyrate and acetyl acetate were 1.2. VBG showed 7.46/37/50, and troponin and BNP were negative. Urine analysis was positive for glucose, ketones, and blood. UTOX was positive for alcohol. The patient presented with a calculated CIWA score of 8, which decreased to 1 by the . He was started on scheduled Librium 25 mg twice daily, thiamine 100 mg twice daily, folic acid 1 mg twice daily, and Valium as needed per CIWA protocol. Seizure and aspiration precautions were instituted. After the , the CIWA score remained between 0-1, allowing for the discontinuation of Librium. AST continued to rise, peaking at 420 before downtrending to 334, and ALT increased from 116 to 481 before decreasing to 438. GI was consulted due to the elevated LFTs, which were attributed to alcoholic steatohepatitis and chronic alcohol use disorder. Concern for esophageal varices prompted an EGD, which revealed grade 1 esophageal varices, non-erosive gastritis, and a normal duodenum. The patient was advised to advance his diet as tolerated and maintain complete abstinence from alcohol. At discharge, the patient was medically stable and deemed safe to return to his previous living situation. Admission diagnoses: #Alcohol dependence with withdrawal #Alcohol use disorder #History of withdrawal seizures #Acute transaminitis, resolving #Abdominal pain #Type 2 diabetes, noncompliant #Normocytic normochromic anemia #Lactic acidosis, resolved #Starvation ketosis versus mild DKA #Status post EGD 01/15 #Grade 1 esophageal varices #Nonerosive gastritis #Compensated liver cirrhosis Discharge instructions: - STOP drinking Alcohol please, follow up with Alcoholics Anonymous outpatient, discuss with PCP regarding more options. - Recommend Hypoparathyroidism workup outpatient. - Continue Metformin 500mg BID, degludec 10 units daily and lispro 3 units with meals outpatient follow up with PCP to titrate medication regimen outpatient. - Return to ED if symptoms worsen - Follow up with PCP in 1 week - If you do not have a PCP, follow-up in [facility] in 1 to 2 weeks. Call [phone] to make an appointment Address: [facility], [address], [address], [place], [address]. This case was discussed with my attending physician, Dr. Celaya, and senior resident, Dr Barrett. Even though this this note was carefully revised there may still be minor errors in wood experimental mechanic due to voice recognition software. Eric Kendall, PGY I Status at Discharge Cognitive/behavioral status at discharge: Stable Overall status at discharge: patient is back to baseline Time Spent with Patient Time attestation: Total time spent providing and/or coordinating discharge services: More than 50% of the patient's total hospital stay Time spent: Greater than 30 minutes Exam Vital Signs Temp Pulse Resp BP Pulse Ox O2 Del Method O2 Flow Rate 97.6 F 73 16 109/74 99 Room Air 3 01/15/25 15:20 01/15/25 15:20 01/15/25 15:20 01/15/25 15:20 01/15/25 15:20 01/15/25 15:20 01/15/25 14:10 Narrative Exam General: No acute distress, malnourished, AAO x3 Eye: PERRL, EOMI, normal conjunctiva, no scleral icterus HENT: Normocephalic, atraumatic, hearing intact to conversation at normal volume, moist oral mucosa Neck: Supple, non-tender, no JVD, no lymphadenopathy Lungs: Non-labored respirations, symmetric chest rise, Clear to auscultate bilaterally, No wheezing, rhonchi, crackles Heart: Peripheral pulses intact bilaterally, Regular Rate and Rhythm. Abdomen: Soft, no tender to palpation, non-distended, no palpable masses Musculoskeletal: Intense tremor in bilaterally upper extremities, No cyanosis or edema, No visible joint swelling Skin: Skin is warm, dry, no rashes or lesions. Psychiatric: Cooperative, appropriate mood and affect, Awake and alert, not agitated Neuro: Cranial nerves II-XII grossly intact. Strength 5/5 throughout. Sensations intact to light touch. Discharge Plan Plan Patient Disposition: HOME (Self Care) Patient condition on transfer: Stable Care Plan Goals: - STOP drinking Alcohol please, follow up with Alcoholics Anonymous outpatient, discuss with PCP regarding more options. - Recommend Hypoparathyroidism workup outpatient. - Continue Metformin 500mg BID, degludec 10 units daily and lispro 3 units with meals outpatient follow up with PCP to titrate medication regimen outpatient. - Return to ED if symptoms worsen - Follow up with PCP in 1 week - If you do not have a PCP, follow-up in [facility] in 1 to 2 weeks. Call [phone] to make an appointment Address: [facility], [address], [address], [place], [address]. Prescriptions/Referrals Prescriptions/Med Rec: New insulin degludec 100 unit/mL (3 mL) insulin pen 10 unit subcut QDAY Qty: 15 0RF insulin lispro [Admelog SoloStar U-100 Insulin] 100 unit/mL insulin pen 3 unit subcut TIDWM Qty: 15 0RF (DME) pen needle, diabetic [Ultra-Fine Pen Needle] 31 gauge x 3/16 needle See Rx Instructions .Route Qty: 100 0RF Rx Instructions: As directed Continued metformin 500 mg tablet 500 mg PO BID Patient Comments: TAKE 1 TABLET BY MOUTH TWICE DAILY WITH MEALS Discontinued tramadol 50 mg tablet 50 mg PO Q6H PRN (Reason: pain) Qty: 28 0RF acetaminophen [Acetaminophen Extra Strength] 500 mg tablet 1,000 mg PO Q6H MDD 1000mg PRN (Reason: pain) Qty: 90 0RF tramadol 50 mg tablet 50 mg PO Q6H PRN (Reason: pain) Qty: 28 0RF hydrocodone-acetaminophen 5-325 mg tablet 1 tab PO BID MDD 10 PRN (Reason: pain) Qty: 10 0RF ibuprofen 600 mg tablet 600 mg PO Q6H Qty: 30 0RF gabapentin 300 mg capsule 300 mg PO HS Patient Comments: TAKE 1 CAPSULE BY MOUTH EVERY DAY AT BEDTIME sennosides-docusate sodium [Senna-S] 8.6-50 mg tablet 1 tab-cap PO QDAY Qty: 30 0RF aspirin 81 mg tablet,delayed release (DR/EC) 81 mg PO BID Qty: 60 0RF acetaminophen [Acetaminophen Extra Strength] 500 mg tablet 1,000 mg PO Q6H MDD 1000mg PRN (Reason: pain) Qty: 90 0RF gabapentin 300 mg capsule 300 mg PO .qhs Qty: 30 0RF doxycycline hyclate 100 mg tablet 100 mg PO BID Qty: 14 0RF oxycodone 5 mg tablet 5 mg PO Q6H MDD 40 PRN (Reason: pain) Qty: 28 0RF tramadol 50 mg tablet 50 mg PO Q8H PRN (Reason: pain) Qty: 28 0RF acetaminophen [Acetaminophen Extra Strength] 500 mg tablet 1,000 mg PO Q6H MDD 1000mg PRN (Reason: pain) Qty: 90 0RF Referrals: No Primary/Family,Physician [Primary Care Provider] Amadeo Barrett MD [Resident, Internal Medicine] Patient/Caregiver Discharge Instructions Discharge Activity: activity as tolerated Education Materials: Alcoholism: Getting Help, Alcohol Addiction, Alcohol Withdrawal: What to Expect Print Language: Italian Stand Alone Forms: Linda Award Info., Patient Portal Info Letter Discharge Order Discharge Orders: Discharge (Routine); Ordered 01/15/25 Ordered By: Silas Eng Quality Discharge Quality Measures VTE prophylaxis
[2025-01-24 07:18] LABS: ANA Screen, IFA NEGATIVE (NEGATIVE); Actin Antibody (IgG)* <20 U; Alpha-1-Antitrypsin* 166 mg/dL (83-199); Ceruloplasmin* 25 mg/dL (14-30); Copper* 111 mcg/dL (70-175); Mitochondrial Ab NEGATIVE (NEGATIVE)
== END 2025-01-15 16:40 | disposition home or self-care (01) | DRG 775 ==
LOC: SERX 17:27 → SERHOLD 17:30 → S2NX 21:40 → S3SX 01-14 12:22
PROVIDERS: Specialist; Admitting Provider Student in an Organized Health Care Education/Training Program; Emergency Provider Family Medicine; Visit Provider Student in an Organized Health Care Education/Training Program
PROC: 0DJ08ZZ Inspection of Upper Intestinal Tract, Via Natural or Artificial Opening Endoscopic (ICD-10-PCS; CPT 43239; principal; 2025-01-15 18:00)
DX: F10.239 Alcohol dependence with withdrawal, unspecified (principal); Y90.0 Blood alcohol level of less than 20 mg/100 ml; E11.9 Type 2 diabetes mellitus without complications; R44.0 Auditory hallucinations; R44.2 Other hallucinations; R10.32 Left lower quadrant pain; Z79.84 Long term (current) use of oral hypoglycemic drugs; K74.60 Unspecified cirrhosis of liver; Z87.891 Personal history of nicotine dependence; Z91.199 Patient's noncompliance with other medical treatment and regimen due to unspecified reason; K29.70 Gastritis, unspecified, without bleeding; Z96.643 Presence of artificial hip joint, bilateral; I85.10 Secondary esophageal varices without bleeding; D64.9 Anemia, unspecified; E87.20 Acidosis, unspecified
CPT/HCPCS: 36415; 76705; 80053; 80074; 80307; 80320; 82103; 82390; 82525; 82550; 83540; 83550; 83735; 84100; 85025; 86015; 86038; 86255; 87081; 93005; 96374; 99282; A4216; A4649; J1200; J1650; J1815; J2250; J2560; J3010; J7050; A9270; G0480